=== PATIENT | male | born 1950 | race Caucasian/White ===

== ENCOUNTER 2020-11-03 00:02 | Emergency (ER) | payer BC, MEDICARE ==
[2020-11-03 00:47] LABS: Urine Blood 3+ (NEG); Urine Glucose 2+ (NEG); Urine Protein 2+ (NEG)
[2020-11-03 00:57] LABS: Absolute Lymphocytes (CBC) 1.7 K/uL (0.7-4.9); Basophils % 0.7 % (0-1.3); Hematocrit 42.3 % (39.6-49.0); Lymphocytes % 19.8 % (15.3-44.8); RBC Red Blood Cell Count 4.46 M/uL (4.33-5.43)
[2020-11-03] MEDS ORDERED: ONDANSETRON 4 MG/2 ML VIAL ONE (01:01)
[2020-11-03] MEDS ORDERED: MORPHINE 4 MG/ML SYR ONE ×2 (01:01→04:25)
[2020-11-03] MEDS ORDERED: NA CHLORIDE 0.9% 1,000 ML ONE (01:01)
[2020-11-03 01:12] LABS: Albumin 3.7 g/dL (3.4-5.0); Bilirubin Direct 0.1 mg/dL (0-0.2); Bilirubin Total 0.5 mg/dL (0.2-1.0); Potassium 4.1 mmol/L (3.5-5.1); Protein, Total 7.4 g/dL (6.4-8.2)
--- NOTE | 2020-11-03 03:35 | ER ---
Nurse's Notes [facility] Name: Johnathon Chapin Age: 70 yrs Sex: Male : 1950 Arrival Date: 11/03/2020 Time: 00:04 Bed 20 Private MD: Diagnosis: Ureterolithiasis;Diabetes with Hyperglycemia Presentation: 11/03 00:14 Chief complaint: Patient states: Left pelvic pain radiating to groin area, left flank lp1 pain, x1 episode of vomiting; Took 600mg of Advil this evening for pain; Patient reports hx of kidney stones. Coronavirus screen: Client denies travel out of the [place] in the last 14 days. At this time, the client does not indicate any symptoms associated with coronavirus-19. Ebola Screen: No symptoms or risks identified at this time. Risk Assessment: Do you want to hurt yourself or someone else? Patient reports no desire to harm self or others. Onset of symptoms was November 03, 2020. 00:14 Method Of Arrival: Ambulatory lp1 00:14 Acuity: JENNIFER 3 lp1 00:21 Initial Sepsis Screen: Does the patient meet any 2 criteria? No. Patient's initial lp1 sepsis screen is negative. Does the patient have a suspected source of infection? No. Patient's initial sepsis screen is negative. Historical: - Allergies: 00:20 Niaspan; lp1 - Home Meds: 00:20 Metformin Oral [Active]; Allopurinol Oral [Active]; rosuvastatin oral oral [Active]; lp1 Hydrochlorothiazide Oral [Active]; pioglitazone 15 mg oral tab [Active]; - PMHx: 00:20 Diabetes - IDDM; Hyperlipidemia; Gout; Hypertension; lp1 - Immunization history:: Adult Immunizations up to date. - Social history:: Smoking status: Patient denies any tobacco usage or history of. Screenin:20 Abuse screen: Denies threats or abuse. Denies injuries from another. Nutritional lp1 screening: No deficits noted. Tuberculosis screening: No symptoms or risk factors identified. Fall Risk None identified. Assessment: 00:45 General: Appears in no apparent distress. comfortable. Pain: Complains of pain in left mg2 lower quadrant Pain radiates to left flank Pain currently is 6 out of 10 on a pain scale. Quality of pain is described as aching, Pain began gradually, Is intermittent. Neuro: Level of Consciousness is awake, alert, obeys commands, Oriented to person, place, time, situation. Cardiovascular: Capillary refill < 3 seconds Patient's skin is warm and dry. Respiratory: Airway is patent Respiratory effort is even, unlabored, Respiratory pattern is regular, symmetrical. GI: Reports lower abdominal pain. : Reports pain in left in suprapubic area flank(s). EENT: No signs and/or symptoms were reported regarding the EENT system. Derm: Skin is intact, is healthy with good turgor, Skin is pink, warm \T\ dry. normal. Musculoskeletal: Circulation, motion, and sensation intact. Capillary refill < 3 seconds. 02:20 Reassessment: Patient appears in no apparent distress at this time. Patient and/or mg2 family updated on plan of care and expected duration. Pain level reassessed. Patient is alert, oriented x 3, equal unlabored respirations, skin warm/dry/pink. 03:30 Reassessment: Patient appears in no apparent distress at this time. Patient and/or jb4 family updated on plan of care and expected duration. Pain level reassessed. Patient is alert, oriented x 3, equal unlabored respirations, skin warm/dry/pink. 04:30 Reassessment: Patient appears in no apparent distress at this time. Patient and/or jb4 family updated on plan of care and expected duration. Pain level reassessed. Patient is alert, oriented x 3, equal unlabored respirations, skin warm/dry/pink. Patient states feeling better. Vital Signs: 00:21 BP 149 / 95; Pulse 100; Resp 18; Temp 98.5(TE); Pulse Ox 100% on R/A; Weight 95.25 kg lp1 (R); Height 6 ft. 2 in. (187.96 cm); Pain 5/10; 02:19 Pulse 80; Resp 18; Pulse Ox 95% on R/A; mg2 03:30 BP 153 / 86; Pulse 79; Resp 16; Pulse Ox 100% on R/A; jb4 00:21 Body Mass Index 26.96 (95.25 kg, 187.96 cm) lp1 ED Course: 00:04 Patient arrived in ED. am2 00:17 Triage completed. lp1 00:17 Arm band placed on. lp1 00:24 Yemi Stone MD is Attending Physician. mh7 00:31 Tamir Membreno, RN is Primary Nurse. mg2 00:53 Inserted saline lock: 20 gauge in right antecubital area, using aseptic technique. jb5 Blood collected. 01:12 Patient has correct armband on for positive identification. mg2 01:12 No provider procedures requiring assistance completed. mg2 01:23 CT Stone Protocol In Process Unspecified. EDMS 03:33 Jani Kilgore MD is Referral Physician. mh7 04:31 IV discontinued, intact, bleeding controlled, No redness/swelling at site. Pressure jb4 dressing applied. Administered Medications: 00:51 Drug: NS 0.9% 1000 ml Route: IV; Rate: 1000 ml; Site: right antecubital; mg2 02:20 Follow up: Response: No adverse reaction; IV Status: Completed infusion; IV Intake: mg2 1000ml 00:51 Drug: morphine 4 mg Route: IVP; Site: right antecubital; mg2 02:20 Follow up: Response: No adverse reaction mg2 00:51 Drug: Zofran (Ondansetron) 4 mg Route: IVP; Site: right antecubital; mg2 02:20 Follow up: Response: No adverse reaction mg2 04:11 Drug: morphine 4 mg Route: IVP; Site: right antecubital; jb4 04:29 Follow up: Response: No adverse reaction; Pain is decreased; RASS: Alert and Calm (0) jb4 Intake: 02:20 IV: 1000ml; Total: 1000ml. mg2 Outcome: 03:35 Discharge ordered by . mh7 04:31 Discharged to home via wheelchair, with family. jb4 04:31 Condition: stable 04:31 Discharge instructions given to patient, Instructed on discharge instructions, follow up and referral plans. medication usage, Demonstrated understanding of instructions, follow-up care, medications, Prescriptions given X 3. 04:32 Patient left the ED. jb4 Signatures: Dispatcher [employer] EDMO Bambi Negrete RN RN lp1 Ryan Centeno RN RN jb4 Candy Chamberlain jb5 Pao Zaldivar am2 Tamir Membreno, MOOSE RN mg2 Yemi Stone MD MD 7
--- NOTE | 2020-11-03 03:35 | EDPHYS ---
Physician Documentation [facility] Name: Johnathon Chapin Age: 70 yrs Sex: Male : 1950 Arrival Date: 11/03/2020 Time: 00:04 Bed 20 Private MD: ED Physician Yemi Stone HPI: 11/03 00:47 This 70 yrs old Male presents to ER via Ambulatory with complaints of Flank mh7 Pain - left, Low Back Pain. 00:47 The patient complains of pain in the left flank. The pain radiates to the left lower mh7 abdomen. Onset: The symptoms/episode began/occurred yesterday. Modifying factors: The symptoms are alleviated by nothing. the symptoms are aggravated by movement, palpation/percussion. Associated signs and symptoms: Pertinent positives: nausea, vomiting, Pertinent negatives: diarrhea, dizziness, dysuria, fever, urinary frequency, headache, hematuria, pain radiating to the lower extremities. Severity of pain: At its worst the pain was moderate yesterday, in the emergency department the pain is unchanged. Historical: - Allergies: 00:20 Niaspan; lp1 - Home Meds: 00:20 Metformin Oral [Active]; Allopurinol Oral [Active]; rosuvastatin oral oral [Active]; lp1 Hydrochlorothiazide Oral [Active]; pioglitazone 15 mg oral tab [Active]; - PMHx: 00:20 Diabetes - IDDM; Hyperlipidemia; Gout; Hypertension; lp1 - Immunization history:: Adult Immunizations up to date. - Social history:: Smoking status: Patient denies any tobacco usage or history of. ROS: 00:47 Constitutional: Negative for fever, chills, and weight loss, Eyes: Negative for injury, mh7 pain, redness, and discharge, Neck: Negative for injury, pain, and swelling, Cardiovascular: Negative for chest pain, palpitations, and edema, Respiratory: Negative for shortness of breath, cough, wheezing, and pleuritic chest pain. 00:47 ENT: Negative for injury, pain, and discharge, : Negative for injury, bleeding, discharge, and swelling, MS/Extremity: Negative for injury and deformity, Skin: Negative for injury, rash, and discoloration, Neuro: Negative for headache, weakness, numbness, tingling, and seizure, Psych: Negative for depression, anxiety, suicide ideation, homicidal ideation, and hallucinations, Allergy/Immunology: Negative for hives, rash, and allergies, Endocrine: Negative for neck swelling, polydipsia, polyuria, polyphagia, and marked weight changes, Hematologic/Lymphatic: Negative for swollen nodes, abnormal bleeding, and unusual bruising. Exam: 00:47 Constitutional: This is a well developed, well nourished patient who is awake, alert, mh7 and in no acute distress. Head/Face: Normocephalic, atraumatic. Eyes: Pupils equal round and reactive to light, extra-ocular motions intact. Lids and lashes normal. Conjunctiva and sclera are non-icteric and not injected. Cornea within normal limits. Periorbital areas with no swelling, redness, or edema. Neck: Trachea midline, no thyromegaly or masses palpated, and no cervical lymphadenopathy. Supple, full range of motion without nuchal rigidity, or vertebral point tenderness. No Meningismus. Chest/axilla: Normal chest wall appearance and motion. Nontender with no deformity. No lesions are appreciated. Cardiovascular: Regular rate and rhythm with a normal S1 and S2. No gallops, murmurs, or rubs. Normal PMI, no JVD. No pulse deficits. Respiratory: Lungs have equal breath sounds bilaterally, clear to auscultation and percussion. No rales, rhonchi or wheezes noted. No increased work of breathing, no retractions or nasal flaring. 00:47 Skin: Warm, dry with normal turgor. Normal color with no rashes, no lesions, and no evidence of cellulitis. MS/ Extremity: Pulses equal, no cyanosis. Neurovascular intact. Full, normal range of motion. Neuro: Awake and alert, GCS 15, oriented to person, place, time, and situation. Cranial nerves II-XII grossly intact. Motor strength 5/5 in all extremities. Sensory grossly intact. Cerebellar exam normal. Normal gait. Psych: Awake, alert, with orientation to person, place and time. Behavior, mood, and affect are within normal limits. 00:47 Abdomen/GI: Inspection: abdomen appears normal, Bowel sounds: normal, in all quadrants, Palpation: mild abdominal tenderness, in the left lower quadrant, Rectal exam: the exam is deferred, because of patient request, Indicators: McBurney's point is not tender, Johansen's sign is negative, Rovsing's sign is negative, Obturator sign is negative, Psoas sign is negative, Liver: no appreciated palpable abnormalities, Hernia: not appreciated. 00:47 Back: ROM is normal, normal spinal alignment noted, CVA tenderness, that is moderate, is noted on the left, vertebral tenderness, is not appreciated, muscle spasm, is not present, Straight leg raises: of both lower extremities does not illicit pain. Vital Signs: 00:21 BP 149 / 95; Pulse 100; Resp 18; Temp 98.5(TE); Pulse Ox 100% on R/A; Weight 95.25 kg lp1 (R); Height 6 ft. 2 in. (187.96 cm); Pain 5/10; 02:19 Pulse 80; Resp 18; Pulse Ox 95% on R/A; mg2 03:30 BP 153 / 86; Pulse 79; Resp 16; Pulse Ox 100% on R/A; jb4 00:21 Body Mass Index 26.96 (95.25 kg, 187.96 cm) lp1 MDM: 03:31 Differential diagnosis: nephrolithiasis, pyelonephritis, UTI, diverticulitis, ruptured mh7 AAA, dissecting AAA. Data reviewed: vital signs, nurses notes, lab test result(s), CBC, electrolytes, urinalysis, radiologic studies, CT scan. Data interpreted: Pulse oximetry: on room air is 95 %. Interpretation: normal. Counseling: I had a detailed discussion with the patient and/or guardian regarding: the historical points, exam findings, and any diagnostic results supporting the discharge/admit diagnosis, the presence of at least one elevated blood pressure reading (>120/80) during this emergency department visit, lab results, radiology results, to return to the emergency department if symptoms worsen or persist or if there are any questions or concerns that arise at home. Response to treatment: the patient's symptoms have resolved after treatment, the patient's blood pressure is in an acceptable range, mental status has returned to baseline, the patient no longer shows bradycardia, the patient is not short of breath, the patient is not tachycardic, the patient's pain is gone, the patient's temperature has normalized. 03:35 Patient medically screened. [facility] 06:26 Refusal of service: The patient/guardian displays adequate decision making capability [facility] and despite a detailed discussion of alternatives, benefits, risks, and consequences refuses: Admission to the hospital for further work-up and treatment, Transfer. 11/03 00:36 Order name: Urine Dipstick--Ancillary (enter results); Complete Time: 01:32 tt3 11/03 00:39 Order name: Basic Metabolic Panel [facility] 11/03 00:39 Order name: CBC with Diff; Complete Time: :32 [facility] 11/03 00:39 Order name: Hepatic Function; Complete Time: : [facility] 11/03 00:39 Order name: Lipase; Complete Time: :32 [facility] 11/03 00:39 Order name: Basic Metabolic Panel; Complete Time: 01:32 EDMS 11/03 00:36 Order name: Urine Dipstick-Ancillary (obtain specimen); Complete Time: 00:36 tt3 11/03 00:39 Order name: IV Saline Lock; Complete Time: 00:40 [facility] 11/03 00:39 Order name: Labs collected and sent; Complete Time: 00:40 [facility] 11/03 00:39 Order name: CT Stone Protocol [facility] Administered Medications: 00:51 Drug: NS 0.9% 1000 ml Route: IV; Rate: 1000 ml; Site: right antecubital; mg2 02:20 Follow up: Response: No adverse reaction; IV Status: Completed infusion; IV Intake: mg2 1000ml 00:51 Drug: morphine 4 mg Route: IVP; Site: right antecubital; mg2 02:20 Follow up: Response: No adverse reaction mg2 00:51 Drug: Zofran (Ondansetron) 4 mg Route: IVP; Site: right antecubital; mg2 02:20 Follow up: Response: No adverse reaction mg2 04:11 Drug: morphine 4 mg Route: IVP; Site: right antecubital; jb4 04:29 Follow up: Response: No adverse reaction; Pain is decreased; RASS: Alert and Calm (0) jb4 Disposition: 11/03/20 03:35 Discharged to Home. Impression: Ureterolithiasis, Diabetes with Hyperglycemia. - Condition is Stable. - Discharge Instructions: Kidney Stones, [id number], Hyperglycemia, [id number]. - Prescriptions for Zofran ODT 4 mg Oral tablet,disintegrating - place 1 tablet by TRANSLINGUAL route every 8 hours As needed; 6 tablet. Tylenol- Codeine #3 300-30 mg Oral Tablet - take 2 tablet by ORAL route every 6 hours As needed; 30 tablet. Flomax 0.4 mg Oral Capsule, Sust. Release 24 hr - take 1 capsule by ORAL route once daily 1/2 hour following the same meal each day; 10 capsule. - Medication Reconciliation Form, Thank You Letter, Antibiotic Education, Prescription Opioid Use form. - Follow up: Private Physician; When: 1 - 2 days; Reason: Worsening of condition, Recheck today's complaints, Continuance of care, Re-evaluation by your physician. Follow up: Jani Kilgore MD; When: 1 - 2 days; Reason: Worsening of condition, Recheck today's complaints. - Problem is an acute exacerbation. - Symptoms have improved. Signatures: Dispatcher [employer] EDMS Bambi Negrete RN RN lp1 Ryan Centeno RN RN jb4 Tamir Membreno RN RN mg2 Yemi Stone MD MD mh7 Jd Berry tt3 Corrections: (The following items were deleted from the chart) 04:32 03:35 11/03/2020 03:35 Discharged to Home. Impression: Ureterolithiasis; Diabetes with jb4 Hyperglycemia. Condition is Stable. Forms are Medication Reconciliation Form, Thank You Letter, Antibiotic Education, Prescription Opioid Use. Follow up: Private Physician; When: 1 - 2 days; Reason: Worsening of condition, Recheck today's complaints, Continuance of care, Re-evaluation by your physician. Follow up: Jani Kilgore; When: 1 - 2 days; Reason: Worsening of condition, Recheck today's complaints. Problem is an acute exacerbation. Symptoms have improved. 7
[2020-11-03 04:36] VITALS: TEMP 98.5
[2020-11-03 04:39] VITALS: BP 153/86; O2SAT 100
--- NOTE | 2020-11-03 20:31 | RAD REPORT ---
EXAM DESCRIPTION: CT - Stone Protocol - 11/03/2020 7:12 am CLINICAL HISTORY: FLANK PAIN COMPARISON: None. TECHNIQUE: CT ABDOMEN PELVIS WITHOUT IV CONTRAST on 11/03/2020 12:39 AM [employer] This exam was performed according to our departmental dose-optimization program, which includes autom ated exposure control, adjustment of the mA and/or kV according to patient size and/or use of iterati ve reconstruction technique. FINDINGS: The heart is enlarged. Abdomen: The liver is normal in appearance. There is no biliary dilatation. Gallbladder is normally d istended. The pancreas and spleen are normal in appearance. Adrenal glands are unremarkable. There is a 4 mm mid pole right renal calculus without hydronephrosis. There are at least four left renal calc beth measuring up to 4 mm. There is moderate left hydronephrosis secondary to a 1.1 cm proximal left u reteral calculus. Abdominal aorta is densely calcified without aneurysm. There is no free air. There is no retroperiton eal adenopathy. Pelvis: There is mild distal colonic diverticulosis. Urinary bladder is unremarkable. There is no bam e fluid. Appendix is normal. Skeleton: There are no acute osseous findings. No suspicious bony lesions. IMPRESSION: Bilateral nephrolithiasis with a mildly obstructing 11 mm proximal left ureteral calculu s. Electronically signed by: Theodore Lou MD 11/03/2020 1:46 AM [employer] Due to temporary technical issues with the PACS/Fluency reporting system, reports are being signed by the in house radiologists without review as a courtesy to insure prompt reporting. The interpreting radiologist is fully responsible for the content of the report.
== END 2020-11-03 04:32 | disposition home or self-care (01) ==
LOC: ER 00:02
DX: N20.1 Calculus of ureter (principal); E11.65 Type 2 diabetes mellitus with hyperglycemia; I10 Essential (primary) hypertension; E78.5 Hyperlipidemia, unspecified; Z88.8 Allergy status to other drugs, medicaments and biological substances
CPT/HCPCS: 96361; 85025; 80048; 36415; 80076; 81003; 83690; 76377; 74176; 96375; 96374; 99284; J7030; J2405

== ENCOUNTER 2020-11-08 07:59 | Day surgery (SDC) | payer MEDICARE ==
--- OUTSIDE RECORDS SUMMARY | 2020-11-08 08:07 | XMS REPORT | Summary of Care ---
:1950 Author Organization [facility] Internal Medicine [place] Address [address] [place] [address]- Encounter HQ Christian_pao(FIN) [phone] Date(s): 08/20/20 - 08/20/20 [facility] Internal Medicine [place] [address] [place] [address] [phone] Discharge Disposition: Home or Self Care Attending Physician: Aniyah Morataya MD Vital Signs Most recent to oldest [Reference Range]: 1 2 Height 187.96 cm (08/20/20 1:58 PM) Temperature Oral [96.4-99.1 DegF] 97.6 DegF (08/20/20 1:58 PM) Blood Pressure [90-140/60-90 mmHg] 74/57 mmHg *LOW* (08/20/20 1:58 PM) Peripheral Pulse Rate [60-100 bpm] 108 bpm 125 b pm *HI* *HI* (08/20/20 2:37 PM) (08/20/20 1:58 PM) Weight 92.273 kg (08/20/20 1:58 PM) Body Mass Index 26.12 m2 (08/20/20 1:58 PM) Problem List Condition Effective Dates Status Health Status Informant Benign hypertension(Confirmed)1 Active Chronic kidney disease stage 07/04/13 Active 3(Confirmed)2 Gout(Confirmed)3 Active Mixed hyperlipidemia(Confirmed) Active Stress fracture of metatarsal 05/10/15 Resolved bone4 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 Allergies, Adverse Reactions, Alerts Substance Reaction Severity Status niacin1 Active 1Data migrated from [employer] on 02/08/15. Originally documented as NIASPAN. Dizziness & felt a hot sensation Medications No Known Medications Results No data available for this section Immunizations Given and Recorded Vaccine Date Status Refusal Reason pneumococcal 23-valent vaccine1 08/04/19 Given Hx influenza vaccine-unspecified 07/12/19 Recorded pneumococcal 13-valent vaccine2 08/04/18 Given influenza virus vaccine, live, trivalent 06/12/18 Recorde d influenza virus vaccine, inactivated3 07/24/15 Given influenza virus vaccine, inactivated4 07/04/13 Given 1Result Comment: Tolerated injection and no reaction after 15 [id number] Comment: Patient tolerated injection. No reaction noted.3Result Comment: [facility] [id number] FLUZONE QUADRIVALENT [id number] Comment: fluzone preservative free (>3 yrs.) [[id number]]. Migrated from OBS ; Data migratedfrom [employer] on 11/13/2015. Procedures Procedure Date Related Diagnosis Body Site Status Diabetic retinal eye exam1 10/2019 C ompleted Colonoscopy2 06/12/12 Completed Ureteroscopy Completed 1Dr. [place] Normal [id number]- unsure when to repeat Social History Social History Type Response Smoking Status Never smoker; Exposure to To bacco Smoke None; Cigarette Smoking Last 365 Days No; Reg Smoking Cessation Counseling No entered on: 08/20/20 Assessment and Plan No data available for this section
--- OUTSIDE RECORDS SUMMARY | 2020-11-08 08:07 | XMS REPORT | Summary of Care ---
:1950 Author Organization [facility] Internal Medicine [place] [facility] Address [address] [place] [address]- Encounter HQ Obintr_pao(FIN) [id number] Date(s): 09/12/20 - 09/13/20 [facility] Internal Medicine [place] [address] [place] [address] [phone] Vital Signs No data available for this section Problem List Condition Effective Dates Status Health [...] & felt a hot sensation Medications No data available for this section Results No data available for this section Immunizations Given and Recorded Vaccine Date Status Refusal Reason pneumococcal 23-valent vaccine1 08/04/19 Given Hx influenza vaccine-unspecified 07/12/19 Recorded pneumococcal 13-valent vaccine2 08/04/18 Given influenza virus vaccine, live, trivalent 06/12/18 Recorde d influenza virus vaccine, inactivated3 07/24/15 Given influenza virus vaccine, inactivated4 07/04/13 Given 1Result Comment: Tolerated injection and no reaction after 15 [id number] Comment: Patient tolerated injection. No reaction noted.3Result Comment: [facility] [id number] FLUZONE QUADRIVALENT [id number] Comment: fluzone preservative free (>3 yrs.) [[id number]]. Migrated from OBS ; [facility] 11/13/2015. Procedures Procedure Date Related Diagnosis Body Site Status Diabetic retinal eye exam1 10/2019 C ompleted Colonoscopy2 06/12/12 Completed Ureteroscopy Completed 1Dr. [place] Normal [id number] unsure when to repeat Social History Social History Type Response Smoking Status Never smoker; Exposure to To bacco Smoke None; Cigarette Smoking Last 365 Days No; Reg Smoking Cessation Counseling No entered on: 08/20/20 Assessment and Plan No data available for this section
--- OUTSIDE RECORDS SUMMARY | 2020-11-08 08:07 | XMS REPORT | Summary of Care ---
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, Weight Start Date: 09/18/20 Status: OrderedmetFORMIN 850 mg oral tablet = 1 tab, PO, BID, # 180 tab, 3 Refill(s), Pharmacy: [facility], 187.96, cm, 08/20/20 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, Height, 92.273, kg, 08/20/20 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, Weight Start Date: 09/18/20 Status: OrderedOneTouch Ultra Blue Blood Glucose Test Strip 1 ea, MISC, TID, # 300 ea, Insulin dependent, Does not use insulin pump, Last DM eval date 08/20/20,3 Refill(s), Pharmacy: [facility], 187.96, cm, 08/20/20 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, Height, 92.273, kg, 08/20/20 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, Weight Start Date: 09/18/20 Status: Orderedperindopril 8 mg oral tablet = 1 tab, PO, Daily, # 90 tab, 3 Refill(s), Pharmacy: [facility], 187.96, cm, 08/20/20 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, Height, 92.273, kg, 08/20/20 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 No reaction noted.3Result Comment: [facility] [phone] FLUZONE QUADRIVALENT [id number] Comment: fluzone preservative free (>3 yrs.) [[id number]]. Migrated from OBS ; [facility]. Procedures Procedure Date Related Diagnosis Body Site Status Diabetic retinal eye exam1 10/2019 C ompleted Colonoscopy2 06/12/12 Completed Ureteroscopy Completed 1Dr. Helio Normal [id number]- unsure when to repeat Social History Social History Type Response Smoking Status Never smoker; Exposure to To bacco Smoke None; Cigarette Smoking Last 365 Days No; Reg Smoking Cessation Counseling No entered on: 08/20/20 Assessment and Plan No data available for this section
--- OUTSIDE RECORDS SUMMARY | 2020-11-08 08:07 | XMS REPORT | Summary of Care ---
:1950 Author Organization [facility] Internal Medicine [place] junior Address [address] [place] [address]- Encounter HQ Christian_pao(FIN) [phone] Date(s): 10/03/20 - 10/03/20 [facility] Internal Medicine [place] [address] [place] [address]- [phone] Discharge Disposition: Home or Self Care Attending Physician: Aniyah Morataya MD Vital Signs Most recent to oldest [Reference Range]: 1 Height 187.96 cm (10/03/20 11:21 AM) Temperature Oral [96.4-99.1 DegF] 97.8 DegF (10/03/20 11:21 AM) Blood Pressure [90-140/60-90 mmHg] 116/80 mmHg (10/03/20 11:21 AM) Peripheral Pulse Rate [60-100 bpm] 86 bpm (10/03/20 11:21 AM) Problem List Condition Effective Dates Status Health [...] Severity Status niacin1 Active 1Data migrated from [facility] on 02/08/15. Originally documented as NIASPAN. Dizziness & felt a hot sensation Medications Soliqua 100/33 subcutaneous solution 40 units, SUB-Q, Daily, Inject once within the hour prior to the first meal of the day; one month supply, # 1 ea, 5 Refill(s) Start Date: 10/03/20 Status: Ordered Results No data available for this section Immunizations Given and Recorded Vaccine Date Status Refusal Reason influenza virus vaccine, inactivated1 06/25/20 Recorded influenza virus vaccine, inactivated2 07/24/15 Given influenza virus vaccine, inactivated3 07/04/13 Given pneumococcal 23-valent vaccine4 08/04/19 Given Hx influenza vaccine-unspecified 07/12/19 Recorded pneumococcal 13-valent vaccine5 08/04/18 Given influenza virus vaccine, live, trivalent 06/12/18 Recorde d 1Result Comment: [10/03/2020] [facility] [id number] Comment: [facility] [phone] FLUZONE QUADRIVALENT [id number] Comment: fluzone preservative free (>3 yrs.) [[id number]]. Migrated from OBS ; Data migratedfrom [facility] on 11/13/2015.4Result Comment: Tolerated injection and no reaction after 15 mins5 Result Comment: Patient tolerated injection. No reaction noted. Procedures Procedure Date Related Diagnosis Body Site Status Diabetic retinal eye exam1 10/2019 C ompleted Colonoscopy2 06/12/12 Completed Ureteroscopy Completed 1Dr. [place] Normal [id number]- unsure when to repeat Social History Social History Type Response Smoking Status Never smoker; Exposure to To bacco Smoke None; Cigarette Smoking Last 365 Days No; Reg Smoking Cessation Counseling No entered on: 10/03/20 Assessment and Plan No data available for this section
--- OUTSIDE RECORDS SUMMARY | 2020-11-08 08:07 | XMS REPORT | Continuity of Care Document ---
:1950 Author Organization [employer] Care Team Providers Name Role Phone [employer] [facility] Unavailable Un available Problems Problem Status Onset Classification Date Comments Sourc e Date Reported M25.5 - PAIN IN JOINT Active OPID 015 [place] Stress fracture of Resolved Problem 10/06/2020 Data metatarsal bone 015 migrated Medi reina (disorder) from [facility] OPID on 06/02/15. [place] Foot pain (finding) Active Problem 06/17/2015 Data OPID 015 migrated Sugar from [employer] [facility] on 06/02/15. 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 Chronic kidney disease Active Problem 10/06/2020 Data stage 3 (disorder) 013 migrated M edical from [facility], [facility] OPID on 03/10/15. 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 [place] Benign hypertension Active Problem 10/06/2020 Data MH (disorder) migrated Medical from [facility] OPID on 03/10/15. [place] Gout (disorder) Active Problem 10/06/2020 Data MH migrated Medical from [facility] OPID on 03/10/15. [place] Mixed hyperlipidemia Active Problem 10/06/2020 MH (disorder) Medical Group Type II diabetes Active Problem 10/06/2020 MH mellitus uncontrolled Medical (finding) Group Diabetes mellitus type Active Problem 10/02/2017 Data MH 2 (disorder) migrated Medical from [facility], [facility] OPID on 5/30/15. 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 Hypercholesterolemia Active Problem 08/24/2015 Data OPID (disorder) migrated Sugar from [facility] on 03/10/15. 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, Height, 92.273, kg, 08/20/20 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, Weight allopurinol 300 mg = 1 tab, PO, Active oral tablet Daily, # 90 2019 Medical tab, 3 Group Refill(s), Pharmacy: [facility], 187.96, cm, 08/20/20 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, Height, 92.273, kg, 08/20/20 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, Weight Metformin = 1 tab, PO, Active hydrochloride 850 MG BID, # 180 2020 Medical Oral Tablet tab, 3 Group Refill(s), Pharmacy: [facility], 187.96, cm, 08/20/20 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, Height, 92.273, kg, 08/20/20 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, Weight perindopril 8 mg oral = 1 tab, PO, Active 09/18 tablet Daily, # 90 2019 Medical tab, 3 Group Refill(s), Pharmacy: [facility], 187.96, cm, 08/20/20 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, Height, 92.273, kg, 08/20/20 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, Weight 0.25 MG, 0.5 MG Dose 0.5 mg, Active 1.5 ML semaglutide SUB-Q, Q7D, 2019 M edical 1.34 MG/ML Pen use after Group Injector [Ozempic] starter kit, # 2 mL, 5 Refill(s), Pharmacy: [id number] Azithromycin 5 Day See Active Dose Pack 250 mg oral Instructions, 2019 Medical tablet Take 2 Group tablets by mouth the first day then 1 tablet by mouth days 2-5., X 5 day, # 6 tab, 0 Refill(s) benzonatate 100 MG 100 mg = 1 Active Oral Capsule cap, PO, TID, 2019 Medic al [Tessalon Perles] PRN Group Cough/Congest ion, X 10 day, # 30 cap, 0 Refill(s) moxifloxacin 5 MG/ML 1 drp, Each Active Ophthalmic Solution Affected Eye, 2019 Medical [Vigamox] TID, X 7 day, Group # 3 mL, 0 Refill(s) BD Ultra-Fine See Active original Insulin Pen Instructions, 2019 Medical Turpin 29G MISC Daily, # Group 12.7mm=1/2 inch 100 ea, 3 Refill(s), Pharmacy: [facility] Hydrochlorothiazide See Active 25 MG Oral Tablet Instructions, 2019 Medical TAKE 1 TABLET Group DAILY, # 90 tab, 1 Refill(s), Pharmacy: [facility] Fenofibrate 160 MG See Active Oral Tablet Instructions, 2019 Medica l TAKE 1 TABLET Group DAILY, # 90 tab, 1 Refill(s), Pharmacy: [facility] rosuvastatin 40 mg See Active oral tablet Instructions, 2019 Medica l TAKE 1 TABLET Group DAILY, # 90 tab, 3 Refill(s), Pharmacy: [facility] perindopril 8 mg oral See Active tablet Instructions, 2019 Medical TAKE 1 TABLET Group DAILY, # 90 tab, 1 Refill(s), Pharmacy: [facility] allopurinol 300 mg See Active oral tablet Instructions, 2019 Medica l TAKE 1 TABLET Group DAILY, # 90 tab, 1 Refill(s), Pharmacy: [facility] Metformin See Active hydrochloride 850 MG Instructions, 2019 Medical Oral Tablet TAKE 1 TABLET Group TWICE A DAY, # 180 tab, 1 Refill(s), Pharmacy: [facility] Colchicine 0.6 MG 0.6 mg = 1 Active Oral Tablet tab, PO, BID, 2018 Medica l PRN Group gout/joint pain, # 60 tab, 0 Refill(s), Pharmacy: [facility] [id number] pioglitazone 15 MG 15 mg = 1 Active 01/04/ Oral Tablet [Actos] tab, PO, 2018 Med ical Daily, # 30 Group tab, 0 Refill(s), Pharmacy: [facility] [id number] pioglitazone 15 MG 15 mg = 1 Inactive 01/04/ Oral Tablet [Actos] tab, PO, 2018 Med ical Daily, # 90 Group tab, 1 Refill(s), Pharmacy: [facility] Allergies, Adverse Reactions, Alerts Substance Category Reaction Severity Reaction Status Date Comments S ource type Reported niacin<sup> Assertion Drug Active Data 1</sup> allergy migrated Medical from [facility] on 02/08/15. Originally documented as NIASPAN. Dizziness & felt a hot sensation Immunizations Immunization Date Site Status Last Updated Comments Sour ce Given influenza virus completed Susan Result Comment : Medical vaccine, 0 [10/03/2020] Group inactivated<sup> [facility] 1</sup> pharmacy pneumococcal Left completed Gorka Result Comment: [facility] 23-valent 9 Deltoid Tolerated Group vaccine<sup>1</s injection and up> no reaction after 15 mins pneumococcal Left completed Gorka Result Comment: [facility] 23-valent 9 Deltoid Tolerated Group vaccine<sup>4</s injection and up> no reaction after 15 mins Hx influenza completed [facility] Medi reina vaccine-unspecif 9 Cornelius up ied pneumococcal Left completed Gorka Result Comment: [facility] 13-valent 8 Deltoid Patient Group vaccine<sup>1</s tolerated up> injection. No reaction noted. pneumococcal Left completed Gorka Result Comment: [facility] 13-valent 8 Deltoid Patient Group vaccine<sup>2</s tolerated up> injection. No reaction noted. pneumococcal Left completed Gorka Result Comment: [facility] 13-valent 8 Deltoid Patient Group vaccine<sup>5</s tolerated up> injection. No reaction noted. influenza virus completed [facility] edical vaccine, live, 8 Group trivalent influenza virus Left completed Kenrick Result Comment : Medical vaccine, 5 Deltoid NDC [id number] Grou p, inactivated<sup> FLUZONE OPI D Sugar 1</sup> QUADRIVALENT [place] influenza virus Left completed Kenrick Result Comment : Medical vaccine, 5 Deltoid NDC [id number] Grou p inactivated<sup> FLUZONE 2</sup> QUADRIVALENT influenza virus Left completed Kenrick Result Comment : Medical vaccine, 5 Deltoid NDC [id number] Grou p inactivated<sup> FLUZONE 3</sup> QUADRIVALENT influenza virus completed GE Result Comment : Medical vaccine, 3 fluzone Group inactivated<sup> preservative 2</sup> free (>3 yrs.) [[id number]]. Migrated from OBS ; Data migrated from [employer] on 11/13/2015. influenza virus completed GE Result Comment : Medical vaccine, 3 fluzone Group inactivated<sup> preservative 3</sup> free (>3 yrs.) [[id number]]. Migrated from OBS ; Data migrated from [employer] on 11/13/2015. influenza virus completed GE Result Comment : Medical vaccine, 3 fluzone Group inactivated<sup> preservative 4</sup> free (>3 yrs.) [[id number]]. Migrated from OBS ; Data migrated from [employer] on 11/13/2015. Results Order Name Results Value Reference Date Interpretation Comments Patito rce Range ELECTROLYTE Chloride Lvl 100 98 - 110 11/22 Medical Group ELECTROLYTE Potassium Lvl 4.6 3.5 - 5.3 11/22 S Medical Group ELECTROLYTE CO2 30 20 - 32 11/22 S /2018 Medical Group ELECTROLYTE A/G Ratio 1.8 1.0 - 2.5 11/22 S Medical Group ELECTROLYTE Total Protein 6.5 6.1 - 8.1 11/22 S Medical Group ELECTROLYTE Calcium Lvl 9.4 8.6 - 10.3 11/22 S Medical Group ELECTROLYTE Albumin Lvl 4.2 3.6 - 5.1 11/22 S Medical Group ELECTROLYTE Alk Phos 33 40 - 115 11/22 S Medical Group ELECTROLYTE ALANINE 16 9 - 46 11/22 S AMINO Medical ASE Group ELECTROLYTE ASPARTATE 20 10 - 35 11/22 S Medical Group ELECTROLYTE Globulin 2.3 1.9 - 3.7 11/22 S Medical Group ELECTROLYTE Bili Total 0.5 0.2 - 1.2 11/22 S Medical Group ELECTROLYTE Creatinine 1.62 0.70 - 11/22 Result S Lvl 1.25 Comment: For Medical patients >49 Group years of age, the reference limit
for Creatinine is approximately 13% higher for people
id entified as -Ameri can. ELECTROLYTE BUN 23 7 - 25 11/22 S Medical Group ELECTROLYTE eGFR NON-AFR. 43 > OR = 60 11/22 S [place] mL/min/1. Medical 3m2 Group ELECTROLYTE Glucose Lvl 140 65 - 99 11/22 Result S Comment: Medical
Group Fasting reference interval

For someone without known diabetes, a glucose
v alue >125 mg/dL indicates that they may have
diab etes and this should be confirmed with a
follow- up test.

Lab test performed by:
[email or web address]
[address]
[place] [address]
No Goodman ELECTROLYTE B/C Ratio 14 6 - 22 11/22 S Medical Group ELECTROLYTE eGFR 50 > OR = 60 11/22 MH S [place] mL/min/1.7 /2019 Medical 3m2 Group ELECTROLYTE Sodium Lvl 138 135 - 146 11/22 MH S /2019 Medical Group HEMATOLOGY Hgb 13.4 13.2 - 11/22 MH 17.1 /2018 Medical Group HEMATOLOGY RBC X 10x6 4.23 4.20 - 02 MH 5.80 /2018 Medical Group HEMATOLOGY Hct 40.3 38.5 - 11/22 MH 50.0 /2019 Medical Group HEMATOLOGY WBC X 10x3 6.5 3.8 - 10.8 11/22 Result Comment: Medical
Lab Group test performed by:
[email or web address]
[address]
[place] [address]
No Goodman HEMATOLOGY MCH 31.7 27.0 - 11/22 MH 33.0 /2018 Medical Group HEMATOLOGY MCHC 33.3 32.0 - 11/22 MH 36.0 Medical Group HEMATOLOGY MCV 95.3 80.0 - 11/22 100.0 Medical Group HEMATOLOGY RDW 12.5 11.0 - 11/22 MH 15.0 Medical Group HEMATOLOGY MPV 11.6 7.5 - 12.5 11/22 /2018 Medical Group HEMATOLOGY Platelet 218 140 - 400 11/22 Medical Group LIPIDS Chol 123 <200 mg/dL 11/22 Result Comment: Medical
Lab Group test performed by:
[email or web address]
[address]
[place] [address]
No Goodman LIPIDS CHD Risk 4.4 <5.0 11/22 (CALC) Medical Group LIPIDS Non HDL Chol 95 <130 mg/dL 11/22 Result Comment: For Medical patients with Group diabetes plus 1 major ASCVD risk
factor, treating to a non-HDL-C goal of <100 mg/dL
(LDL-C of <70 mg/dL) is considered a therapeutic
option. LIPIDS HDL 28 >40 mg/dL 11/22 /2018 Medical Group LIPIDS LDL 73 11/22 Result (Calculated) Comment: Medical Reference Group range: <100

Desirabl e range <100 mg/dL for primary prevention;
<70 mg/dL for patients with CHD or diabetic patients
with > or = 2 CHD risk factors.

LDL-C is now calculated using the Paris lynch
calculat ion, which is a validated novel method providing
better accuracy than the Friedewald equation in the
estimati on of LDL-C.
Julio SANTIAGO et al. KIMBERLEY. 2013;310(19): 3163-2425
(http:// [employer]AllTrails/faq/FAQ1 64) LIPIDS Trig 134 <150 mg/dL 11/22 /2018 Medical Group SPECIAL Hgb A1C 7.1 <5.7 % 11/22 Result CHEMISTRY Comment: For Medical someone Group without known diabetes, a hemoglobin A1c
value of 6.5% or greater indicates that they may have
diabetes and this should be confirmed with a follow-up
test.

For someone with known diabetes, a value <7% indicates
that their diabetes is well controlled and a value
greater than or equal to 7% indicates suboptimal
control. A1c targets should be individualize d based on
duration of diabetes, age, comorbid conditions, and
other consideration s.

Currentl y, no consensus exists regarding use of
hemogl obin A1c for diagnosis of diabetes for children.<br/ >
FASTING: YES

FASTING: YES

Lab test performed by:
[email or web address]
[address] [place] [address]
[place] [address]
No Goodman SPECIAL PSA 0.6 < OR = 4.0 11/22 Result CHEMISTRY ng/mL Comment: The Medical total PSA Group value from this assay system is
standard ized against the WHO standard. The test
result will be approximately 20% lower when compared
to the equimolar-sta ndardized total PSA (Jason
Marc) . Comparison of serial PSA results should be
interpre edie with this fact in mind.

This test was performed using the Siemens
chemilum inescent method. Values obtained from
differen t assay methods cannot be used
inte rchangeably. PSA levels, regardless of
value, should not be interpreted as absolute
evidence of the presence or absence of disease.

Lab test performed by:
[email or web address]
[address] [place] [address]
[place] [address]
No Goodman SPECIAL Hgb 13.4 13.2 - 11/22 CHEMISTRY 17.1 Medical Group SPECIAL RBC X 10x6 4.23 4.20 - 02 CHEMISTRY 5.80 /2018 Medical Group SPECIAL Hct 40.3 38.5 - 11/22 CHEMISTRY 50.0 /2019 Medical Group SPECIAL WBC X 10x3 6.5 3.8 - 10.8 11/22 Result CHEMISTRY Comment: Medical
Lab Group test performed by:
[email or web address]
[address] [place] [address]
[place] [address]
No Goodman SPECIAL Chloride Lvl 100 98 - 110 11/22 CHEMISTRY /2018 Medical Group SPECIAL Potassium Lvl 4.6 3.5 - 5.3 11/22 CHEMISTRY /2019 Medical Group SPECIAL CO2 30 20 - 32 11/22 CHEMISTRY /2019 Medical Group SPECIAL A/G Ratio 1.8 1.0 - 2.5 11/22 CHEMISTRY /2018 Medical Group SPECIAL Total Protein 6.5 6.1 - 8.1 11/22 CHEMISTRY /2018 Medical Group SPECIAL Calcium Lvl 9.4 8.6 - 10.3 11/22 CHEMISTRY Medical Group SPECIAL Albumin Lvl 4.2 3.6 - 5.1 11/22 CHEMISTRY /2018 Medical Group SPECIAL Alk Phos 33 40 - 115 11/22 CHEMISTRY /2019 Medical Group SPECIAL ALANINE 16 9 - 46 11/22 CHEMISTRY AMINOTRANSFER /2018 Medical ASE Group SPECIAL ASPARTATE 20 10 - 35 11/22 CHEMISTRY TRANSAMINASE /2018 Medical Group SPECIAL Globulin 2.3 1.9 - 3.7 11/22 CHEMISTRY /2018 Medical Group SPECIAL Bili Total 0.5 0.2 - 1.2 11/22 CHEMISTRY /2018 Medical Group SPECIAL U Alb 1.0 See Note: 11/22 Result CHEMISTRY mg/dL Comment: Medical Reference Group Range:
<b r/>Reference Range
Not established SPECIAL U Alb/Crea 7 <30 mcg/mg 11/22 Result CHEMISTRY creat Comment: Medical
The ADA Group defines abnormalities in albumin
e xcretion as follows:<b r/>
Category Result (mcg/mg creatinine)<b r/>
Normal <30
Micro albuminuria 30-299
Clinical albuminuria > OR = 300

The ADA recommends that at least two of three
spe cimens collected within a 3-6 month period be
abnorm al before considering a patient to be
within a diagnostic category. SPECIAL U Creat mg/dL 136 20 - 320 11/22 Result CHEMISTRY /2018 Comment: Medical
Lab Group test performed by:
[email or web address]
[address] [place] [address]
[place] [address]
No Goodman SPECIAL MCH 31.7 27.0 - 02 CHEMISTRY 33.0 Medical Group SPECIAL MCHC 33.3 32.0 - 11/22 CHEMISTRY 36.0 Medical Group SPECIAL MCV 95.3 80.0 - 02 CHEMISTRY 100.0 /2018 Medical Group SPECIAL RDW 12.5 11.0 - 02 CHEMISTRY 15.0 Medical Group SPECIAL MPV 11.6 7.5 - 12.5 11/22 CHEMISTRY /2018 Medical Group SPECIAL Platelet 218 140 - 400 11/22 CHEMISTRY Medical Group SPECIAL Creatinine 1.62 0.70 - 11/22 Result CHEMISTRY Lvl 1. Comment: For Medical patients >49 Group years of age, the reference limit
for Creatinine is approximately 13% higher for people
id entified as -Ameri can. SPECIAL BUN 23 7 - 25 11/22 CHEMISTRY [facility] SPECIAL eGFR NON-AFR. 43 > OR = 60 11/22 CHEMISTRY [place] mL/min/1. Medical 3m2 Group SPECIAL Glucose Lvl 140 65 - 99 11/22 Result CHEMISTRY Comment: Medical
Group Fasting reference interval

For someone without known diabetes, a glucose
v alue >125 mg/dL indicates that they may have
diab etes and this should be confirmed with a
follow- up test.

Lab test performed by:
[email or web address]
[address] [place] [address]
[place] [address]
No Goodman SPECIAL B/C Ratio 14 6 - 22 11/22 CHEMISTRY /2018 [facility] SPECIAL eGFR 50 > OR = 60 11/22 CHEMISTRY [place] mL/min/. [address] Group SPECIAL Sodium Lvl 138 135 - 146 11/22 CHEMISTRY [facility] URINE CHEM U Alb 1.0 See Note: 11/22 Result mg/dL Comment: Medical Reference Group Range:
<b r/>Reference Range
Not established URINE CHEM U Alb/Crea 7 <30 mcg/mg 11/22 Result creat Comment: Medical
The ADA Group defines abnormalities in albumin
e xcretion as follows:<b r/>
Category Result (mcg/mg creatinine)<b r/>
Normal <30
Micro albuminuria 30-299
Clinical albuminuria > OR = 300

The ADA recommends that at least two of three
spe cimens collected within a 3-6 month period be
abnorm al before considering a patient to be
within a diagnostic category. URINE CHEM U Creat mg/dL 136 20 - 320 11/22 Result Comment: Medical
Lab Group test performed by:
[facility]
[address]
[place] [address]
No Goodman CHEM PANEL Uric Acid 3.1 4.0 - 8.0 03/26 Result Comment: Medical Therapeutic Group target for gout patients: <6.0 mg/dL

Lab test performed by:
[facility]
[address]
[place] [address]
No Goodman CHEM PANEL Alk Phos 30 40 - 115 03/26 [facility] Group CHEM PANEL Bili Total 0.5 0.2 - 1.2 03/26 Medical Group CHEM PANEL ALANINE 15 9 - 46 03/26 AMINOTRANSFER [facility] Group CHEM PANEL ASPARTATE 20 10 - 35 03/26 TRANSAMINASE /2017 Medical Group CHEM PANEL A/G Ratio 1.9 1.0 - 2.5 03/26 Medical Group CHEM PANEL eGFR NON-AFR. 61 > OR = 60 03/26 [place] mL/min/1.7 /2018 [place] [address] Group CHEM PANEL Creatinine 1.23 0.70 - 03/26 Result Lvl 1.25 Comment: For Medical patients >49 Group years of age, the reference limit
for Creatinine is approximately 13% higher for people
id entified as -Ameri can. CHEM PANEL Albumin Lvl 4.1 3.6 - 5.1 03/26 Medical Group CHEM PANEL Total Protein 6.3 6.1 - 8.1 03/26 Medical Group CHEM PANEL Calcium Lvl 9.5 8.6 - 10.3 03/26 Medical Group CHEM PANEL CO2 27 20 - 31 03/26 Medical Group CHEM PANEL Globulin 2.2 1.9 - 3.7 03/26 Medical Group CHEM PANEL Sodium Lvl 139 135 - 146 03/26 Medical Group CHEM PANEL B/C Ratio NOT 6 - 22 03/26 Medical Group CHEM PANEL eGFR 70 > OR = 60 03/26 [place] mL/min/1. [address] Group CHEM PANEL Potassium Lvl 4.2 3.5 - 5.3 03/26 [facility] CHEM PANEL BUN 17 7 - 25 03/26 Medical [facility] CHEM PANEL Glucose Lvl 120 65 - 99 03/26 Result Comment: Medical
Group Fasting reference interval

For someone without known diabetes, a glucose value
bet ween 100 and 125 mg/dL is consistent with
p rediabetes and should be confirmed with a
follow- up test.

Lab test performed by:
[email or web address]
[address] [place] [address]
[facility] [place] [address]
No Goodman CHEM PANEL Chloride Lvl 104 98 - 110 03/26 Medical Group SPECIAL Hgb A1C 7.6 <5.7 % 03/26 Result CHEMISTRY /2018 Comment: For Medical someone Group without known diabetes, a hemoglobin A1c
value of 6.5% or greater indicates that they may have
diabetes and this should be confirmed with a follow-up
test.

For someone with known diabetes, a value <7% indicates
that their diabetes is well controlled and a value
greater than or equal to 7% indicates suboptimal
control. A1c targets should be individualize d based on
duration of diabetes, age, comorbid conditions, and
other consideration s.

Currentl y, no consensus exists regarding use of
hemogl obin A1c for diagnosis of diabetes for children.<br/ >
FASTING: YES

FASTING: YES

Lab test performed by:
[email or web address]
[address] [place] [address]
[place] [address]
No Goodman Pathology Reports No Data Provided for This Section Diagnostic Reports Report Value Date Source Foot series DX Examination: Foot series 08/21/2015 [employer] Provided History: pain DIAGNOSIS: Progressive heal ing of an extra-articular fracture at the base of the second metatarsal DISCUSSION: Three views [facility] foot are compared to all prior studies. There is progressive ossification and increasing density within an extra-articular nondisplaced fracture at the base of the second m etatarsal. No change in alig nment or position. The fracture site is still evident although increasing in density indicating progressive healing. There are no other interval changes. Foot series DX Examination: Foot series 07/24/2015 [employer] Provided History: right foot fx , subacute DIAGNOSIS: Increasing ossif ication of a nondisplaced stress fracture at the base of the second metatarsal, consistent with progressive healing. DISCUSSION: Three views [facility] foot are compared to prior studies dated 14 June 2015, and studies dated 10 May 2015. The stress fracture at the n onarticular surface of the base of the second metatarsal is vaguely evident showing increasing ossification with decreasing visualization secondary to osteoid deposition. Minimal adjacent periosteal response. The findings are consistent with progressive healing of a nondisplaced stress fracture or of the second metatarsal. No other interval changes are evident. Foot series DX EXAMINATION: Right foot series. 06/14/2015 [employer] HISTORY: Right foot stress fracture FINDINGS: 3 view weight-bear ing examination of the right foot is performed and compared to 05/10/2015. There is a transverse, nondi splaced, extra articular stress fracture at the base of the right second metatarsal. There are no additional fractures or dislocations. There is mild pes planus. The joint sp aces are normal. There is no ankle effusion. There are no radiopaque foreign bodies identified. IMPRESSION: 1. Transverse, nondisplaced, extra articular stress fracture at the base of the right second metatarsal. 2. Mild right pes planus. Foot series DX Examination: Foot series 05/10/2015 [employer] Provided History: pain DIAGNOSIS: 1. 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 No fractures are noted no destructive lesions. The remainder the study is unremarkable. Consultation Notes No Data Provided for This Section Discharge Summaries No Data Provided for This Section History and Physicals No Data Provided for This Section Vital Signs Vital Sign Value Date Comments Source Systolic (mm Hg) 116 10/03/2020 Medical Group Diastolic (mm Hg) 80 10/03/2020 Medical Group Heart Rate 86 10/03/2020 Medical Grou p Temperature Oral (F) 97.8 F 10/03/2020 [facility] reina Group Height 187.96 cm 10/03/2020 [facility] Heart Rate 108 08/20/2020 [facility] Systolic (mm Hg) 74 08/20/2020 [facility] Diastolic (mm Hg) 57 08/20/2020 [facility] Heart Rate 125 08/20/2020 [facility] Temperature Oral (F) 97.6 F 08/20/2020 [facility] Height 187.96 cm 08/20/2020 [facility] Weight 92.273 08/20/2020 [facility] BMI Calculated 26.12 08/20/2020 [facility] Systolic (mm Hg) 110 03/20/2020 [facility] Diastolic (mm Hg) 76 03/20/2020 [facility] Heart Rate 90 03/20/2020 [facility] Temperature Oral (F) 97.7 F 03/20/2020 [facility] Height 187.96 cm 03/20/2020 [facility] Weight 99.432 03/20/2020 [facility] BMI Calculated 28.14 03/20/2020 [facility] Systolic (mm Hg) 102 12/15/2019 [facility] Diastolic (mm Hg) 72 12/15/2019 [facility] Heart Rate 87 12/15/2019 [facility] Temperature Oral (F) 97.4 F 12/15/2019 [facility] Height 187.96 cm 12/15/2019 [facility] Weight 101.818 12/15/2019 [facility] BMI Calculated 28.82 12/15/2019 [facility] Systolic (mm Hg) 93 11/11/2019 [facility] Diastolic (mm Hg) 66 11/11/2019 [facility] Heart Rate 100 11/11/2019 [facility] Temperature Oral (F) 97.7 F 11/11/2019 [facility] Height 187.96 cm 11/11/2019 [facility] Weight 102.955 11/11/2019 [facility] BMI Calculated 29.14 11/11/2019 [facility] Systolic (mm Hg) 115 08/04/2019 [facility] Diastolic (mm Hg) 77 08/04/2019 [facility] Heart Rate 75 08/04/2019 [facility] Temperature Oral (F) 97.5 F 08/04/2019 [facility] Height 185.42 cm 08/04/2019 [facility] Weight 104.091 08/04/2019 [facility] BMI Calculated 30.28 08/04/2019 [facility] BMI Calculated 30.41 03/22/2019 [facility] Weight 104.545 03/22/2019 [facility] Height 185.42 cm 03/22/2019 [facility] Heart Rate 77 03/22/2019 [facility] Temperature Oral (F) 97.6 F 03/22/2019 [facility] Systolic (mm Hg) 111 03/22/2019 [facility] Diastolic (mm Hg) 71 03/22/2019 [facility] Height 185.42 cm 12/09/2018 [facility] BMI Calculated 30.28 12/09/2018 [facility] Weight 104.091 12/09/2018 [facility] Temperature Oral (F) 97.8 F 12/09/2018 [facility] Heart Rate 87 12/09/2018 [facility] Systolic (mm Hg) 94 12/09/2018 [facility] Diastolic (mm Hg) 64 12/09/2018 [facility] BMI Calculated 29.22 08/04/2018 [facility] Weight 100.455 08/04/2018 [facility] Height 185.42 cm 08/04/2018 [facility] Heart Rate 80 08/04/2018 [facility] Temperature Oral (F) 98.0 F 08/04/2018 [facility] Systolic (mm Hg) 122 08/04/2018 [facility] Diastolic (mm Hg) 74 08/04/2018 [facility] Height 185.42 cm 04/07/2018 [facility] Weight 100.682 04/07/2018 [facility] BMI Calculated 29.28 04/07/2018 [facility] Heart Rate 68 04/07/2018 [facility] Temperature Oral (F) 97.6 F 04/07/2018 [facility] Systolic (mm Hg) 102 04/07/2018 [facility] Diastolic (mm Hg) 70 04/07/2018 [facility] Weight 98.182 01/04/2018 [facility] BMI Calculated 28.56 01/04/2018 [facility] Height 185.42 cm 01/04/2018 [facility] Systolic (mm Hg) 114 01/04/2018 [facility] Diastolic (mm Hg) 78 01/04/2018 [facility] Heart Rate 72 01/04/2018 [facility] Temperature Oral (F) 97.1 F 01/04/2018 [facility] Height 185.42 cm 09/29/2017 [facility] BMI Calculated 28.29 09/29/2017 [facility] Weight 97.273 09/29/2017 [facility] Heart Rate 81 09/29/2017 [facility] Temperature Oral (F) 98.0 F 09/29/2017 [facility] Systolic (mm Hg) 110 09/29/2017 [facility] Diastolic (mm Hg) 80 09/29/2017 [facility] Encounters Location Location Encounter Encounter Reason Attending ADM DC Stat us Source Details Type Number For Provider Date Date Visit Outpatient [id number] 05[place]10 [facility] [place] [place] [facility] Diag [id number] Raheem 05/10 05/11 [facility] [place] Outpatient [id number] RAHEEM 06/14 [facility] [place] [facility] [place] [facility] Outpt Diag [id number] Raheem 06/14 06/15 [facility] [place] Outpatient [id number] [place] 07/24 [facility] [place] Outpatient [id number] RAHEEM 07/24 [facility] [place] [facility] [place] [facility] Outpt Diag [id number] Raheem 07/24 07/25 [facility] [place] Outpatient [id number] RAHEEM 08/21 [facility] Outpt Diag [id number] Raheem 08/21 08/22 [facility] Alexandro [facility] [place] Outpatient [id number] 11/27 [facility] [place] Outpatient [id number] 06/24 [facility] [place] Outpatient [id number] [place] 10/29 [facility] [place] Outpatient [id number] [place] 03/02 [facility] [place] Outpatient [id number] [place] 06/01 [facility] [place] Outpatient [id number] [place] 06/02 [facility] [place] Outpatient [id number] [place] 09/29 [facility] Outpatient [id number] [place] 09/29 09/30 Internal [facility] [place] Outpatient [id number] LAB VISIT 12/22 Acti ve [facility] [place] MG Ambulatory [id number] 12/22 12/22 Internal Pre-Reg [facility] [place] Outpatient [id number] 12/31 [facility] [id number] [place] 12/31 12/31 Internal Pre-Reg [facility] [place] Outpatient [id number] 01/04 [facility] [id number] 01/04 Internal [facility] [place] Outpatient [id number] [place] 04/07 [facility] [id number] [place] 04/07 04/08 Internal [facility] [place] Outpatient [id number] LAB VISIT 07/28 [facility] [id number] 07/28 07/28 Internal Pre-Reg [facility] [place] Outpatient [id number] 08/04 [facility] [place] MG Outpatient [id number] 08/04 Internal [facility] [place] Outpatient [id number] 12/09 [facility] Outpatient [id number] 12/09 Internal [facility] [place] Outpatient [id number] 03/22 [facility] Outpatient [id number] 03/22 Internal [facility] [place] Outpatient [id number] 07/21 Act [facility] [place] [facility] Ambulatory [id number] 07/21 07/21 Internal Pre-Reg /2018 [facility] [place] Outpatient [id number] 08/04 [facility] Outpatient [id number] 08/04 Internal [facility] [place] Outpatient [id number] 11/11 [facility] Outpatient [id number] 11/11 Internal [facility] [place] [facility] Phone [id number] 12/12 12/14 Internal Message [facility] [place] Outpatient [id number] 12/14 [facility] [place] [facility] Outpatient [id number] 12/14 Internal [facility] [place] [facility] Phone [id number] 03/02 03/04 Internal Message [facility] [place] Outpatient [id number] 03/20 [facility] [place] [facility] Outpatient [id number] [place] 03/20 03/21 Internal [facility] [place] [facility] Phone [id number] 06/11 06/13 Internal Message /2019 [facility] [place] Outpatient [id number] 06/15 Act [facility] [place] LAB Outpatient [id number] 06/22 [facility] [place] Outpatient [id number] 08/20 [facility] [place] [facility] Outpatient [id number] [place] 08/20 08/21 Internal [facility] Phone [id number] 09/12 09/14 Internal Message /2019 [facility] Phone [id number] 09/18 09/20 Internal Message /2019 [facility] [place] Outpatient [id number] 10/03 [facility] [id number] 10/03 Internal [facility] /2019 [facility] [place] Outpatient [id number] 12/25 Act [facility] [place] LAB Outpatient [id number] 01/01 [facility] [place] Procedures Procedure Code Date Perfomer Comments Source Diabetic retinal 138293669 10/12/2019 Dr. Cadet Medic al eye Normal exam Group exam<sup>1</sup> Colonoscopy<sup>1</ [id number] 06/12/2012 polyps- unsure [facility]> when to repeat Group, [facility] [place] Colonoscopy<sup>2</ [id number] 06/12/2012 polyps- unsure [facility] sup> when to repeat Group Ureteroscopy [id number] Medical Group, [facility] [place] Assessment and Plan No Data Provided for This Section Plan of Care No Data Provided for This Section Social History Social History Date Source Social History TypeResponse 10/03/2020 [facility] Smoking Status Never smoker; Exposure to Tobacco Smoke None; Cigarette Smoking Last 365 Days No; Reg Smoking Cessation Counseling No entered on: 10/03/20 Social History TypeResponse 08/21/2015 [facility] [place] Smoking Status Never smoker; Exposure to Tobacco Smoke None; Cigarette Smoking Last 365 Days No; Reg Smoking Cessation Counseling No Family History No Data Provided for This Section Advance Directives No Data Provided for This Section Functional Status No Data Provided for This Section
--- OUTSIDE RECORDS SUMMARY | 2020-11-08 08:08 | XMS REPORT ---
:1950 Author Organization [facility] Address [address] [place] [address] Care Team Providers Name Role Phone Lucia Romero Unavailable [phone] PROBLEMS Type Condition ICD9-CM [id number] Onset Condition SNOMED Code Notes Code Code Dates Status Problem Pain in joint M25.572 Active 866879595 involving left ankle and foot Problem Kidney stone N20.0 Active 03358820 ALLERGIES Allergen (clinical drug Drug/Non Drug Allergy Reaction Allergy Type Onset Date Status ingredient) documented on EMR andrea Clarke([facility] Unknown Drug Allergy Active Code:[address]-64) ENCOUNTERS from 1950 to 2020-11-06 Encounter Location Date Provider Diagnosis [place] [address] [facility] Oct, Lucia Romero Kidney s tone N20.0 Specialty/Urology [address] [place] [id number] IMMUNIZATIONS No Information SOCIAL HISTORY Tobacco Use: Social History Observation Description Date Details (start date - stop date) Never Smoker Sex Assigned At : Social History Observation Description Sex Assigned At Unknown Alcohol Screen Question Answer Notes Did you have a drink containing alcohol in the past year? Ye s Points 0 Interpretation Negative How many drinks did you have on a typical day when you were 1 or 2 (0 points) drinking in the past year? Tobacco Use/Smoking Question Answer Notes Are you a never smoker Additional Findings: Tobacco Non-User Current non-smoker REASON FOR REFERRAL No Information VITAL SIGNS Height 74 in Oct, Weight 213.0 lbs Oct, Temperature 97.6 degrees Fahrenheit Oct, BMI 27.34 kg/m2 26 Steve, 2021 Oximetry 97 % Oct, Blood pressure systolic 119 mm Hg Oct, Blood pressure diastolic 77 mm Hg Oct, MEDICATIONS Medication SIG (Take, Route, Notes Start Date End Date Status Frequency, Duration) Pioglitazone HCl 15 MG 1 tablet Orally Once a Active day Metformin HCl 500 MG 1 tablet with a meal Active Orally Once a day for 30 day(s) Hydrochlorothiazide 25 MG 1 tablet in the morning Active Orally Once a day for 30 day(s) Allopurinol 300 MG 1 tablet Orally Once a Active day Multi Vitamin Daily - 1 tablet Orally Once a Active day Lantus 100 UNIT/ML as directed Subcutaneous Active Rosuvastatin Calcium 40 MG 1 tablet Orally Once a Active day Docusate Calcium 240 MG 1 capsule as needed Active Orally Once a day PROCEDURES No Information RESULTS No Results REASON FOR VISIT KIDNEY STONE MEDICAL (GENERAL) HISTORY Type Description Date Medical History blood thinner- aspirin Medical History diabetes Medical History kidney problems Medical History gout Medical History hbp Surgical History EYE Surgical History COLONOSCOPY Surgical History kidney stones Goals Section No Information Health Concerns No Information MEDICAL EQUIPMENT No Information MENTAL STATUS No Information FUNCTIONAL STATUS No Information ASSESSMENTS Encounter Date Diagnosis Assessment Notes Treatment Notes Treatm ent Clinical Notes Oct, Kidney stone CT report revie thu, (ICD-10 - N20.0) Left proxim al 11mm ureteral stone with mild hydro, lik jung too big to pass . Bilateral nephrolithiasis Has flomax, ok to continue Zofran prn Tylenol #3, valente n is well managed wi th this, ok to use stool softeners for constipation Meet Dr. Stuart lynch, PACO, plan for procedure/ lithotripsy, pe nding his review of C T images PSA after recov ered from stone intervention CD and report o f CT given to Lucia Montes MA fo r Dr. Montejo to revi ew Go to ER if inc rease in pain, fever, chills, N &V ROV prn, appt w tih WR PLAN OF TREATMENT Treatment Notes Assessment Notes Clinical Notes Kidney stone CT report reviewed, Left proximal 11mm ureteral stone with mild hydro, likely too bi g to pass. Bilateral nephrolithiasisHas flomax, ok to contin ueZofran prnTylenol #3, pain is well managed with this, ok to use stool softeners for constipationMeet Dr. Montejo, PACO, plan f or procedure/ lithotripsy, pending his review of CT imagesPSA aft er recovered from stone interventionCD and report of CT given t o Lucia Montes MA for Dr. oMntejo to reviewGo to ER if in crease in pain, fever, chills, N &VROV prn, appt wtih WR Treatment Notes Test Name Order Date URINALYSIS AUTO W/O SCOPE ([id number]) 2020-11-06 URINALYSIS, COMPLETE W/REFLEX TO CULTURE 2020-11-06 PVR 2020-11-06 Next Appt Details 2 - 3 Days Reason:stones Provider Name:Jayant Montejo, 03:30:00 PM, [address] [facility] [address], [place], [phone], Follow Up:2 - 3 Daysstones Insurance Providers Payer Name Payer Payer Insured Patient Coverage Coverage End Address Phone Name Relationship to Start Date Dennys e Insured [phone] [facility] [id number] [phone]
--- OUTSIDE RECORDS SUMMARY | 2020-11-08 08:08 | XMS REPORT | Continuity of Care Document ---
:1950 Author Organization [facility] t Address [address] [place] [address] Care Team Providers Name Role Phone Aniyah Morataya Attending Clinician Lab, Fam Pob I Attending Clinician Unavailable Pob1, Care Clinic Attending Clinician Unavailable Naomy Mc Attending Clinician Problems Condition Condition Condition Status Onset Resolution Last Treating Co mments Source Name Details Category Date Date Treatment Clinician Date M25.5 - Diagnosis Active 2014-102015-07-24 Me moria PAIN IN 0-13 15:05:00 l JOINT M25.5 - 00:01: Jonn PAIN IN 00 JOINT Active 07/24/2015 [facility] Foot pain Problem Active 2015-06-17 Me moria (finding) 05-10 08:19:30 l Foot 00:00: [place] pain 00 (finding) Active 05/10/2015 Problem 06/17/2015 [facility]15. MH OP[facility] 719.4 - Diagnosis Active 2015-05-10 Me moria PAIN IN - 12:52:00 l JOINT 719.4 - 00:01: [place] PAIN IN 00 JOINT Active 05/09/2015 MH [facility] Chronic Problem Active 2020-10-06 Jose walter kidney 07-04 00:34:24 l disease Chronic 00:00: Luis Angel n stage 3 kidney 00 (disorder) disease stage 3 (disorder) Active 07/04/2013 Problem 10/06/2020 Data migrated from [employer] on 03/10/15. [facility] Diabetes Problem Resolve 2015-08-24 Me moria mellitus d 05:22:40 l (disorder) Diabetes He rmann mellitus (disorder) Resolved Problem 08/24/2015 [facility] Benign Problem Active 2020-10-06 Memor ia hypertensi 00:34:24 l on Benign Jonn (disorder) hypertensi on (disorder) Active Problem 10/06/2020 Data migrated from [employer] on 03/10/15. [facility] OPID [facility] Gout Problem Active 2020-10-06 Memor ia (disorder) 00:34:24 l Gout [place] (disorder) Active Problem 10/06/2020 Data migrated from [employer] on 03/10/15. [facility] OP[facility] Mixed Problem Active 2020-10-06 Memor ia hyperlipid 00:34:24 l emia Mixed Jonn (disorder) hyperlipid emia (disorder) Active Problem 10/06/2020 Medical Group Type II Problem Active 2020-10-06 Jose walter diabetes 00:34:24 l mellitus Type II Teresa nn uncontroll diabetes ed mellitus (finding) uncontroll ed (finding) Active Problem 10/06/2020 Medical Group Diabetes Problem Active 2017-10-02 Mem oria mellitus 01:07:29 l type 2 Diabetes Luis Angel n (disorder) mellitus type 2 (disorder) Active Problem 10/02/2017 Data migrated from [employer] on 03/10/15. Medical [facility] OPID [facility] Diabetic Problem Active 2015-06-17 Mem oria renal 08:19:30 l disease Diabetic Teresa nn (disorder) renal disease (disorder) Active Problem 06/17/2015 Data migrated from [employer] on 03/10/15. [facility] Hyperchole Problem Active 2015-08-24 M emoria sterolemia 05:22:40 l (disorder) Luis Angel n Hyperchole sterolemia (disorder) Active Problem 08/24/2015 Data migrated from [employer] on 03/10/15. [facility] History of Past Illness Condition Condition Condition Status Onset Resolution Last Treating Co mments Source Name Details Category Date Date Treatment Clinician Date Stress Problem Resolve 2020-10-06 2020-10-06 Memoria fracture d 7 00:34:24 00:34:24 l of Stress 00:00: Jonn metatarsal fracture 00 bone of (disorder) metatarsal bone (disorder) Resolved 05/10/2015 Problem 10/06/2020 Data migrated from [employer] on 06/02/15. [facility] Testicular Problem Resolve 2020-10-06 2020-10-06 Memoria hypofuncti d 12-30 00:34:24 00:34:24 l on 00:00: [place] (disorder) Testicular 00 hypofuncti on (disorder) Resolved 12/30/2012 Problem 10/06/2020 Data migrated from [employer] on 03/10/15. [facility] Hyperkerat Problem Resolve 2015-08-24 2015-08-24 Memoria osis d 01-02 05:22:40 05:22:40 l (disorder) 00:00: Luis Angel n Hyperkerat 00 osis (disorder) Resolved 01/02/2014 Problem 08/24/2015 Data migrated from [employer] on 03/10/15. OP[facility] Allergies, Adverse Reactions, Alerts Allergy Allergy Status Severity Reaction(s) Onset Inactive Treating Comm ents Source Name Type Date Date Clinician Tricia Adverse Active Info Not [facility] Reaction [facility] niacin<s niacin<s Active Memori a up>1</kerr up>1</kerr l p> p> Jonn Social History Smoking Status Start Date Stop Date Source Social History [facility] Jonn Medications Ordered Filled Start Stop Current Ordering Indication Dosage Frequency Signature Comments Components Source Medication Medication Date Date Medication? Clinician (SIG) Name Name 3 ML 2019-10 Yes 40 units, Chante Insulin 2-23 SUB-Q, l Glargine 17:57: DailyJonn 100 UNT/ML 00 Inject / once Lixisenatid within the e 0.033 hour prior MG/ML Pen to the Injector first meal [Soliqua] of the day; one month supply, # 1 ea, 5 Refill(s) OneTouch 2019-10 Yes 1 ea, Memoria Ultra Blue 2-08 MISC, TID, l Blood 15:12: # 300 ea, Jonn Glucose 00 Insulin Test Strip dependent, Does not use insulin pump, Last DM eval date 08/20/20, 3 Refill(s), Pharmacy: [facility], 187.96, cm, 08/20/20 13:58:00 K [employer], Height, 92.273, kg, 08/20/20 13:58:00 K 9 [employer], Weight allopurinol 2019-10 Yes = 1 tab, Me moria 300 mg oral 2-08 PO, Daily, l tablet 15:11: # 90 tab, Luis Angel n 00 3 Refill(s), Pharmacy: [facility], 187.96, cm, 08/20/20 13:58:00 K 9 [employer], Height, 92.273, kg, 08/20/20 13:58:00 K 9 [employer], Weight Metformin 2019-10 Yes = 1 tab, Jose walter hydrochlori 2-08 PO, BID, # l de 850 MG 15:11: 180 tab, 3 He rmann Oral Tablet 00 Refill(s), Pharmacy: [facility], 187.96, cm, 08/20/20 13:58:00 K 9 [employer] OFF[employer]ER, Height, 92.273, kg, 08/20/20 13:58:00 K 9 [employer] OFF[employer]ER, Weight perindopril 2019-10 Yes = 1 tab, Me moria 8 mg oral 2-08 PO, Daily, l tablet 15:11: # 90 tab, Luis Angel n 00 3 Refill(s), [facility], 187.96, cm, 08/20/20 13:58:00 K 9 [employer] OFF[employer]ER, Height, 92.273, kg, 08/20/20 13:58:00 K 9 [employer] OFF[employer], Weight 0.25 MG, Yes 0.5 mg, Memori a 0.5 MG Dose 6-09 SUB-Q, l 1.5 ML 16:35: Q7D, use [place] semaglutide 00 after 1.34 MG/ML starter Pen kit, # 2 Injector mL, 5 [Ozempic] Refill(s), Pharmacy: [id number] Azithromyci 2019-0 Yes See Memori a n 5 Day 1-31 Instructio l Dose Pack 17:23: ns, Take 2 He rmann 250 mg oral 00 tablets by tablet mouth the first day then 1 tablet by mouth days 2-5., X 5 day, # 6 tab, 0 Refill(s) benzonatate Yes 100 mg = 1 Memoria 100 MG Oral 1-31 cap, PO, l Capsule 17:23: TID, PRN Luis Angel n [Tessalon 00 Cough/Pete Perles] estion, X 10 day, # 30 cap, 0 Refill(s) moxifloxaci Yes 1 drp, Jose walter n 5 MG/ML 6-11 Each l Ophthalmic 16:55: Affected Her martins Solution 00 Eye, TID, [Vigamox] X 7 day, # 3 mL, 0 Refill(s) BD Yes See Memoria Ultra-Fine 2-28 Instructio l original 17:41: ns, MISC Teresa nn Insulin Pen 00 Daily, # [place] 29G 100 ea, 3 12.7mm=1/2 Refill(s), inch Pharmacy: [facility] Hydrochloro Yes See Memori a thiazide 25 2-04 Instructio l MG Oral 20:43: ns, TAKE 1 Herm selin Tablet 00 TABLET DAILY, # 90 tab, 1 Refill(s), Pharmacy: [facility] Fenofibrate Yes See Memori a 160 MG Oral 2-04 Instructio l Tablet 20:43: ns, TAKE 1 Teresa nn 00 TABLET DAILY, # 90 tab, 1 Refill(s), Pharmacy: [facility] rosuvastati Yes See Memori a n 40 mg 2-04 Instructio l oral tablet 20:43: ns, TAKE 1 [place] 00 TABLET DAILY, # 90 tab, 3 Refill(s), Pharmacy: [facility] perindopril 2018- Yes See Memori a 8 mg oral 2-04 Instructio l tablet 20:43: ns, TAKE 1 Teresa nn 00 TABLET DAILY, # 90 tab, 1 Refill(s), Pharmacy: [facility] allopurinol Yes See Memori a 300 mg oral 2-04 Instructio l tablet 20:43: ns, TAKE 1 Teresa nn 00 TABLET DAILY, # 90 tab, 1 Refill(s), Pharmacy: [facility] Metformin Yes See [facility] hydrochlori 2-04 Instructio l de 850 MG 20:43: ns, TAKE 1 He rmann Oral Tablet 00 TABLET TWICE A DAY, # 180 tab, 1 Refill(s), Pharmacy: [facility] Colchicine Yes 0.6 mg = 1 M emoria 0.6 MG Oral 6-27 tab, PO, l Tablet 15:32: BID, PRN Jonn 00 gout/joint pain, # 60 tab, 0 Refill(s), Pharmacy: [facility] [employer] [id number] pioglOctoniuszon Yes 15 mg = 1 M emoria e 15 MG 3-26 tab, PO, l Oral Tablet 15:58: Daily, # He rmann [Actos] 29 30 tab, 0 Refill(s), Pharmacy: [facility] [id number] pioglitazon No 15 mg = 1 M emoria e 15 MG 3-26 tab, PO, l Oral Tablet 15:57: Daily, # Sukumar rmann [Actos] 00 90 tab, 1 Refill(s), Pharmacy: [facility] Maria Dolores Whitten Yes Carlos as [facility] Dios directed [facility] ent Clinics Hydrochloro Hydrochloro Yes Carlos [address] [facility] thiazide thiazide De Dios in the [place] es - morning [facility] Metformin Metformin Yes Carlos [address] [facility] HCl HCl De [facility] with a [facility] meal [facility] Vital Signs Vital Name Observation Time Observation Value Comments Source Systolic (mm Hg) 2020-10-03 17:21:00 Jose rial [place] Diastolic (mm Hg) 2020-10-03 17:21:00 Mem orial [place] Heart Rate 2020-10-03 17:21:00 [facility] Jonn Temperature Oral (F) 2020-10-03 17:21:00 97.8 F [facility] Jonn Height 2020-10-03 17:21:00 187.96 cm [facility] Jonn Heart Rate 2020-08-20 20:37:00 [facility] Jonn Systolic (mm Hg) 2020-08-20 19:58:00 Jose rial [place] Diastolic (mm Hg) 2020-08-20 19:58:00 Mem orial [place] Heart Rate 2020-08-20 19:58:00 [facility] [place] Temperature Oral (F) 2020-08-20 19:58:00 97.6 F [facility] [place] Height 2020-08-20 19:58:00 187.96 cm [facility] [place] Weight 2020-08-20 19:58:00 [facility] [place] BMI Calculated 2020-08-20 19:58:00 Memori al Jonn Systolic (mm Hg) 2020-03-20 16:05:00 Jose rial [place] Diastolic (mm Hg) 2020-03-20 16:05:00 Mem orial [place] Heart Rate 2020-03-20 16:05:00 [facility] [place] Temperature Oral (F) 2020-03-20 16:05:00 97.7 F [facility] Jonn Height 2020-03-20 16:05:00 187.96 cm [facility] Jonn Weight 2020-03-20 16:05:00 [facility] [place] BMI Calculated 2020-03-20 16:05:00 Memori al [place] Systolic (mm Hg) 2019-12-15 17:19:00 Jose rial [place] Diastolic (mm Hg) 2019-12-15 17:19:00 Mem orial [place] Heart Rate 2019-12-15 17:19:00 [facility] [place] Temperature Oral (F) 2019-12-15 17:19:00 97.4 F [facility] Jonn Height 2019-12-15 17:19:00 187.96 cm [facility] [place] Weight 2019-12-15 17:19:00 [facility] [place] BMI Calculated 2019-12-15 17:19:00 Memori al [place] Systolic (mm Hg) 2019-11-11 16:54:00 Jose rial [place] Diastolic (mm Hg) 2019-11-11 16:54:00 Mem orial [place] Heart Rate 2019-11-11 16:54:00 [facility] Jonn Temperature Oral (F) 2019-11-11 16:54:00 97.7 F [facility] Jonn Height 2019-11-11 16:54:00 187.96 cm [facility] Jonn Weight 2019-11-11 16:54:00 [facility] [place] BMI Calculated 2019-11-11 16:54:00 Memori al [place] Systolic (mm Hg) 2019-08-04 16:02:00 Jose rial Jonn Diastolic (mm Hg) 2019-08-04 16:02:00 Mem orial [place] Heart Rate 2019-08-04 16:02:00 [facility] Jonn Temperature Oral (F) 2019-08-04 16:02:00 97.5 F [facility] [place] Height 2019-08-04 16:02:00 185.42 cm [facility] [place] Weight 2019-08-04 16:02:00 [facility] [place] BMI Calculated 2019-08-04 16:02:00 Memori al Jnon BMI Calculated 2019-03-22 16:02:00 Memori al Jonn Weight 2019-03-22 16:02:00 [facility] Jon[place] Height 2019-03-22 16:02:00 185.42 cm [facility] [place] Heart Rate 2019-03-22 16:02:00 [facility] [place] Temperature Oral (F) 2019-03-22 16:02:00 97.6 F [facility] [place] Systolic (mm Hg) 2019-03-22 16:02:00 Jose rial Jonn Diastolic (mm Hg) 2019-03-22 16:02:00 Mem orial Jonn Height 2018-12-09 17:20:00 185.42 cm [facility] [place] BMI Calculated 2018-12-09 17:20:00 Memori al Jonn Weight 2018-12-09 17:20:00 [facility] Jon[place] Temperature Oral (F) 2018-12-09 17:20:00 97.8 F [facility] [place] Heart Rate 2018-12-09 17:20:00 [facility] Jon[place] Systolic (mm Hg) 2018-12-09 17:20:00 Jose rial [place] Diastolic (mm Hg) 2018-12-09 17:20:00 Mem orial [place] BMI Calculated 2018-08-04 16:15:00 Memori al Jonn Weight 2018-08-04 16:15:00 [facility] [place] Height 2018-08-04 16:15:00 185.42 cm [facility] [place] Heart Rate 2018-08-04 16:15:00 [facility] Jonn Temperature Oral (F) 2018-08-04 16:15:00 98.0 F [facility] [place] Systolic (mm Hg) 2018-08-04 16:15:00 Jose rial [place] Diastolic (mm Hg) 2018-08-04 16:15:00 Mem orial [place] Height 2018-04-07 15:06:00 185.42 cm [facility] [place] Weight 2018-04-07 15:06:00 [facility] Jonn BMI Calculated 2018-04-07 15:06:00 Memori al [place] Heart Rate 2018-04-07 15:06:00 [facility] [place] Temperature Oral (F) 2018-04-07 15:06:00 97.6 F [facility] [place] Systolic (mm Hg) 2018-04-07 15:06:00 Jose rial Jonn Diastolic (mm Hg) 2018-04-07 15:06:00 Mem orial [place] Weight 2018-01-04 15:26:00 [facility] [place] BMI Calculated 2018-01-04 15:26:00 Memori al [place] Height 2018-01-04 15:26:00 185.42 cm [facility] Jonn Systolic (mm Hg) 2018-01-04 15:26:00 Jose rial [place] Diastolic (mm Hg) 2018-01-04 15:26:00 Mem orial [place] Heart Rate 2018-01-04 15:26:00 [facility] [place] Temperature Oral (F) 2018-01-04 15:26:00 97.1 F [facility] Jonn Height 2017-09-29 17:17:00 185.42 cm [facility] Jonn BMI Calculated 2017-09-29 17:17:00 Memori al Jonn Weight 2017-09-29 17:17:00 [facility] [place] Heart Rate 2017-09-29 17:17:00 [facility] Jonn Temperature Oral (F) 2017-09-29 17:17:00 98.0 F [facility] [place] Systolic (mm Hg) 2017-09-29 17:17:00 Jose rial [place] Diastolic (mm Hg) 2017-09-29 17:17:00 Mem orial Jonn Procedures Procedure Date / Time Performed Performing Clinician [facility] e Diabetic retinal eye 2019-10-12 00:00:00 Chante miner [place] exam<sup>1</sup> Colonoscopy<sup>2</sup> 2012-06-12 05:00:00 Jose rial Jonn Ureteroscopy [facility] Jonn Encounters Start End Encounter Admission Attending Care Care Encounter Source Date/Time Date/Time Type Type Clinicians Facility Department ID 2020-11-07 2020-11-07 [id number] [place] [facility] 2020-11-062020-11-06 Outpatient [facility] [id number] [facility] 2020-10-03 2020-10-03 Outpatient REBECCA Morataya [facility] [id number] 11:15:00 23:59:59 Aniyah 27 Hernandez 2020-09-18 2020-09-19 Outpatient [facility] [id number] 08:46:06 23:59:59 09 2020-09-12 2020-09-13 Outpatient [facility] [id number] 08:15:27 23:59:59 08 2020-08-20 2020-08-20 Outpatient REBECCA Morataya [facility] [id number] 14:15:00 23:59:59 Aniyah 28 Hernandez 2020-06-11 2020-06-12 Outpatient [facility] [id number] 14:21:15 23:59:59 07 2020-04-21 2020-04-21 Laboratory Lab, [facility] [id number] 13:10:29 13:30:29 Only [facility]am [facility] [id number] Jesse [id number] Professio [id number] nal [address] 2020-04-21 2020-04-21 Urgent Pob1, Acute [facility] [id number] 12:20:00 12:40:00 [facility] [id number] Jesse [id number] Professio [id number] nal [facility] [address] 2020-03-20 2020-03-20 Outpatient REBECCA Morataya [facility] [id number] 11:00:00 23:59:59 Aniyah 24 Hernandez 2020-03-02 2020-03-03 Outpatient [facility] [id number] 13:13:30 23:59:59 06 2019-12-15 2019-12-15 Outpatient REBECCA Morataya [facility] [id number] 11:15:00 23:59:59 Aniyah 22 Hernandez 2019-12-13 2019-12-14 Outpatient [facility] [id number] 11:06:33 23:59:59 05 2019-11-11 2019-11-11 Outpatient REBECCA Morataya MG [id number] 10:30:00 23:59:59 Aniyah 23 Hernandez 2019-08-04 2019-08-04 Outpatient REBECCA Morataya MG [id number] 11:15:00 23:59:59 Aniyah 20 Hernandez 2019-07-21 2019-07-21 Outpatient MG MG [id number] 09:30:00 09:30:00 21 2019-03-22 2019-03-22 Outpatient REBECCA Morataya MG [id number] 11:15:00 23:59:59 Aniyah 19 Hernandez 2018-12-09 2018-12-09 Outpatient REBECCA Morataya MG [id number] 11:15:00 23:59:59 Aniyah 18 Hernandez 2018-08-04 2018-08-04 Outpatient REBECCA Morataya MG [id number] 11:15:00 23:59:59 Aniyah 16 Hernandez 2018-07-28 2018-07-28 [id number] 08:30:00 08:30:00 17 2018-05-03 2018-05-03 [facility] [id number] 08:30:00 08:30[facility]00 [facility] 2018-04-07 2018-04-07 Outpatient REBECCA Morataya MG [id number] 10:00:00 23:59:59 Aniyah 15 Hernandez 2018-01-04 2018-01-04 Outpatient REBECCA Morataya MG [id number] 10:30:00 23:59:59 Aniyah 14 Hernandez 2017-12-31 2017-12-31 Outpatient REBECCA Morataya MG [id number] 11:00:00 11:00:00 Aniyah 12 Hernandez 2017-12-22 2017-12-22 Outpatient MG [facility] [id number] 08:30:00 08:30:00 13 2017-09-29 2017-09-29 Outpatient REBECCA Morataya MG [id number] 11:15:00 23:59:59 Aniyah Hernandez 2015-08-21 2015-08-21 Outpatient Alexandro 29 MH29 [id number] 13:30:00 23:59:00 Jani Moralez 2015-07-24 2015-07-24 Outpatient SIMONE Mc29 MH29 [id number] 14:41:00 23:59:00 Jani Moralez 2015-06-14 2015-06-14 Outpatient Alexandro China MH29 [id number] 14:49:00 23:59:00 Jani Moralez 2015-05-10 2015-05-10 Outpatient Alexandro China MH29 [id number] 12:41:00 23:59:00 Jani Moralez Results Test Description Test Time Test Comments Results Result Comments Source ELECTROLYTES 2018-11-22 100 [facility] martins 15:23:00 ELECTROLYTES 2018-11-22 4.6 [facility] Her martins 15:23:00 ELECTROLYTES 2018-11-22 30 [facility] Her martins 15:23:00 ELECTROLYTES 2018-11-22 1.8 [facility] Her martins 15:23:00 ELECTROLYTES 2018-11-22 6.5 [facility] Her martins 15:23:00 ELECTROLYTES 2018-11-22 9.4 [facility] Her martins 15:23:00 ELECTROLYTES 2018-11-22 4.2 [facility] Her martins 15:23:00 ELECTROLYTES 2018-11-22 33 [facility] Her martins 15:23:00 ELECTROLYTES 2018-11-22 16 [facility] Her martins 15:23:00 ELECTROLYTES 2018-11-22 20 [facility] Her martins 15:23:00 ELECTROLYTES 2018-11-22 2.3 [facility] Her martins 15:23:00 ELECTROLYTES 2018-11-22 0.5 [facility] Her martins 15:23:00 ELECTROLYTES 2018-11-22 1.62 [facility] Her martins 15:23:00 ELECTROLYTES 2018-11-22 23 [facility] Her martins 15:23:00 ELECTROLYTES 2018-11-22 43 [facility] Her martins 15:23:00 ELECTROLYTES 2018-11-22 140 [facility] Her martins 15:23:00 ELECTROLYTES 2018-11-22 14 [facility] Her martins 15:23:00 ELECTROLYTES 2018-11-22 50 [facility] Her martins 15:23:00 ELECTROLYTES 2018-11-22 138 [facility] Her martins 15:23:00 HEMATOLOGY 2018-11-22 13.4 [facility] Teresa nn 15:23:00 HEMATOLOGY 2018-11-22 4.23 [facility] Teresa nn 15:23:00 HEMATOLOGY 2018-11-22 40.3 [facility] Teresa nn 15:23:00 HEMATOLOGY 2018-11-22 6.5 [facility] Teresa nn 15:23:00 HEMATOLOGY 2018-11-22 15:23:00 Test Item Value Reference Range Interpretation Comme nts MCH (test code = MCH) 31.7 pg 27.0-33.0 Memorial [id number] 15:23:0033.3[facility] HermannHEMATOLOGY 2018-11-22 15:23:0095.3[facility] EkjmipgUPCOACYXMG2287-63-29 15:23:0012.5[facility] QoeqwekOSRSCKIGKZ6523-59-29 15:23:0011.6[facility] XkqdlitGOPSEFKLZW1160-63-08 15:23:74524Eipzckce PesxdspQHKUHF2870-75-02 15:23:26981Cxsuihdh HermannLIPIDS 2018-11-22 15:23:004.4[facility] OeikcwfMCVZYU7210-01-87 15:23:0095[facility] AkbnsjuQGJAEM3229-83-63 15:23:0028[facility] VwhtlyeCUUNNG8240-11-98 15:23:0073 Memorial RgkzzxsABYIED8035-50-10 15:23:71063Xrqjgsgx HermannSPECIAL CHEMISTRY 2018-11-22 15:23:007.1[facility] HermannSPECIAL WRDXISYSA1721-46-88 15:23:000.6 [facility] HermannSPECIAL MSYXCJVHL8127-61-32 15:23:0013.4[facility] HermannSPECIAL XSJSSZBHI1666-86-75 15:23:004.23[facility] HermannSPECIAL VXWFSADFG1027-33-16 15:23:0040.3[facility] HermannSPECIAL TVVKAPOTW2821-43-33 15:23:006.5[facility] HermannSPECIAL NMEMOQCNI3529-52-97 15:23:37502Wacqioci HermannSPECIAL CHEMISTRY 2018-11-22 15:23:004.6[facility] HermannSPECIAL ENVLPJWHZ5203-33-37 15:23:0030 [facility] HermannSPECIAL YHCEUXEAQ6962-31-92 15:23:001.8[facility] HermannSPECIAL GTVOSWCWJ0259-62-83 15:23:006.5[facility] HermannSPECIAL UNZJGSCYR9951-55-30 15:23:009.4[facility] HermannSPECIAL AYFQXCKMB5899-64-54 15:23:004.2[facility] HermannSPECIAL [id number] 15:23:0033[facility] HermannSPECIAL CHEMISTRY 2018-11-22 15:23:0016[facility] HermannSPECIAL HTYZCMFGD1546-17-80 15:23:0020 [facility] HermannSPECIAL OZULEFMXK8268-33-09 15:23:002.3[facility] HermannSPECIAL ZRWENKBGZ6341-88-15 15:23:000.5[facility] HermannSPECIAL JLCJAJEQN0062-15-49 15:23:001.0[facility] HermannSPECIAL GWCUVNNYG8242-08-17 15:23:007[facility] Jonn SPECIAL JFMYVDZBU8592-18-96 15:23:60775Awoxfjta HermannSPECIAL CHEMISTRY 2018-11-22 15:23:00 Test Item Value Reference Range Interpretation Comments MCH (test code = MCH) 31.7 pg 27.0-33.0 [facility] HermannSPECIAL [id number] 15:23:0033.3[facility] HermannSPECIAL KNKXVHVME4816-00-65 15:23:0095.3[facility] HermannSPECIAL FKRNXPAFA3589-19-88 15:23:0012.5[facility] HermannSPECIAL XJGIOFXFX9887-19-50 15:23:0011.6[facility] HermannSPECIAL GRJKGYYFB5003-80-91 15:23:97100Qcnqrcpn HermannSPECIAL CHEMISTRY 2018-11-22 15:23:001.62[facility] HermannSPECIAL RWUZLEPKV9286-93-20 15:23:0023 [facility]annSPECIAL KUJTIFGBU2891-33-05 15:23:0043[facility] HermannSPECIAL XLUTUGKBD8623-15-46 15:23:20729Sfgqteva HermannSPECIAL CVMSSBREZ5514-13-38 15:23:0014[facility] HermannSPECIAL UQWHLZWBB8887-49-31 15:23:0050[facility] Jonn SPECIAL [id number] 15:23:27133Knwvrqxg HermannURINE FEDH5565-42-08 15:23:001.0[facility] HermannURINE ZJNU3637-34-03 15:23:007[facility] HermannURINE UAJK8339-90-83 15:23:02810Alacqohp HermannCHEM FWWFF9913-97-76 14:36:003.1 [facility] HermannCHEM UUDAZ8277-10-53 14:36:0030Mem[facility] HermannCHEM PANEL 2018-03-26 14:36:000.5[facility] HermannCHEM [id number] 14:36:0015Memorial HermannCHEM PCYTL7186-19-45 14:36:0020Mem[facility] HermannCHEM GDXVT9934-81-52 14:36:001.9[facility] HermannCHEM ZDGQS7393-09-30 14:36:0061[facility] HermannCHEM VDMAW2587-56-42 14:36:001.23[facility] HermannCHEM GKXYE5910-15-16 14:36:004.1 [facility] HermannCHEM [id number] 14:36:006.3[facility] HermannCHEM PANEL 2018-03-26 14:36:009.5[facility] HermannCHEM BYQCW7472-42-73 14:36:0027Mem[facility] HermannCHEM YCNJQ9981-13-33 14:36:002.2[facility] HermannCHEM VPRGS8279-75-92 14:36:42199Mgtxfgzh HermannCHEM KHUUE9409-83-78 14:36:0070[facility] HermannCHEM OLLFG2858-88-24 14:36:004.2[facility] HermannCHEM CTBZG5350-04-14 14:36:0017 [facility] HermannCHEM RMNLY7961-39-33 14:36:33510Wxeajuqi HermannCHEM PANEL 2018-03-26 14:36:88737Xueunvkq HermannSPECIAL FAHMSAIWM5368-48-47 14:36:007.6 [facility] [place]
--- OUTSIDE RECORDS SUMMARY | 2020-11-08 08:08 | XMS REPORT ---
:1950 Author Organization [facility] Address [address] [place] [address] Care Team Providers Name Role Phone Jayant Montejo Unavailable [phone] PROBLEMS Type Condition ICD9-CM [id number] Onset Condition SNOMED Code Notes Code Code Dates Status Problem Bilateral N20.0 Active 97217030 nephrolithiasis Problem Ureterolithiasis N20.1 Active 30940145 Problem Pain in joint M25.572 Active 646180219 involving left ankle and foot Problem Kidney stone N20.0 Active 23914647 ALLERGIES Allergen (clinical drug Drug/Non Drug Allergy Reaction Allergy Type Onset Date Status ingredient) documented on EMR andrea Clarke([facility] Unknown Drug Allergy Active Code:[address]-26) ENCOUNTERS from 1950 to 2020-11-07 Encounter Location Date Provider Diagnosis [place] [address] [facility] Oct, Jayant Montejo Ureterolithi asis N20.1 Specialty/Urology [facility] [address] [place], [place] nephrolithiasis N20.0 [id number] IMMUNIZATIONS No Information SOCIAL HISTORY Tobacco Use: [...] No Information VITAL SIGNS Height 74 in 27 Steve, 2021 Weight 213.0 lbs Oct, Temperature 98.3 degrees Fahrenheit Oct, BMI 27.34 kg/m2 Oct, Oximetry 96 % Oct, Blood pressure systolic 104 mm Hg Oct, Blood pressure diastolic 62 mm Hg Oct, MEDICATIONS Medication SIG (Take, Route, Notes Start Date End Date Status Frequency, Duration) Pioglitazone HCl 15 MG 1 tablet Orally Once Active a day Allopurinol 300 MG 1 tablet Orally Once Active a day Docusate Calcium 240 MG 1 capsule as needed Active Orally Once a day Lantus 100 UNIT/ML as directed Activ e Subcutaneous Hydrochlorothiazide 25 MG 1 tablet in the Active morning Orally Once a day for 30 day(s) Rosuvastatin Calcium 40 MG 1 tablet Orally Once Active a day [place] 5-325 MG 1 tablet as needed Oct, Nov, Active Orally every 6 hrs for 5 days Metformin HCl 500 MG 1 tablet with a meal Active Orally Once a day for 30 day(s) Multi Vitamin Daily - 1 tablet Orally Once Active a day PROCEDURES No Information RESULTS No Results REASON FOR VISIT pre op -consult- kidney stone, SAW VALENTÍN MARTIN NP MEDICAL (GENERAL) HISTORY Type Description Date Medical [...] Treatment Notes Treatm ent Clinical Notes Oct, Ureterolithiasis (ICD-10 - N20.1) Oct, Bilateral nephrolithiasis (ICD-10 - N20.0) PLAN OF TREATMENT Medication Medication Name Sig Start Date Stop Date [place] 5-325 MG 1 tablet as needed Orally every 6 hrs for 5 2020Nov, days Next Appt Details Provider Name:Jayant Montejo, 11:00:00 AM, [address] [place] [address], [place], [address], Insurance Providers Payer Name Payer Payer Insured Patient Coverage Coverage End Address Phone Name Relationship to Start Date Dennys e Insured [facility] [phone] JASON KWAN [facility] [id number] [address]
[2020-11-08] MEDS ORDERED: CEFAZOLIN/SWI 1gm 1 GM/10 ML SYR ONE (10:08)
[2020-11-08] MEDS ORDERED: NA CHLORIDE 0.9% 1,000 ML ONE (10:09)
--- NOTE | 2020-11-08 10:09 | RAD REPORT ---
EXAM DESCRIPTION: Mi Lara (2 Views)11/08/2020 9:23 am CLINICAL HISTORY: Preop for a cystogram COMPARISON: None FINDINGS: The lungs appear clear of acute infiltrate. The heart is normal size IMPRESSION: No acute abnormalities displayed
--- NOTE | 2020-11-08 10:11 | RAD REPORT ---
EXAM DESCRIPTION: RAD - Abdomen 1 View (KUB) - 11/08/2020 9:22 am CLINICAL HISTORY: Abdomen pain. FINDINGS: The bowel gas pattern is unremarkable. 10 millimeter calculus proximal left ureter. Small bilateral renal calculi Calcifications in the pelvis probably phleboliths
[2020-11-08] MEDS ORDERED: propofoL 200 MG/20 ML VIAL IV ONE (10:37)
[2020-11-08] MEDS ORDERED: FENTANYL CITR 100 MCG/2 ML ONE (10:37)
[2020-11-08] MEDS ORDERED: dexAMETHasone 10 MG/ML VIAL ONE (10:37)
[2020-11-08] MEDS ORDERED: MIDAZOLAM HCL 2 MG/2 ML INJ ONE (10:37)
[2020-11-08] MEDS ORDERED: KETOROLAC 30 MG/ML INJ ONE (10:38)
[2020-11-08] MEDS ORDERED: ONDANSETRON 4 MG/2 ML VIAL ONE (10:38)
[2020-11-08] MEDS ORDERED: HYDROCODONE/APAP 5/325 MG TAB PO PRN (12:38)
[2020-11-08] MEDS ORDERED: PHENAZOPYRIDINE 100MG TAB PO ONE (12:38)
--- NOTE | 2020-11-08 12:48 | OP ---
Surgeon: FAVIOLA WESTBROOK Preoperative Diagnoses: 1. Left obstructive ureterolithiasis, 11 mm. 2. Acute kidney injury. Postoperative Diagnoses: 1. Left obstructive ureterolithiasis, 11 mm. 2. Acute kidney injury. 3. Papillary necrosis. Procedures Performed: 1. Cystoscopy. 2. Left retrograde pyelography. 3. Left ureteral stent placement. Indication For Procedure: Mr. Chapin presented to the Urology Clinic with a history of frequent recurrent nephrolithiasis, though the last episode was several years ago. He presented to the Emergency Department several days ago with an 11 mm proximal UPJ calculus on the left associated with a creatinine of 1.8. After confirming his baseline creatinine was indeed 1.3, the diagnosis of acute kidney injury was made and a recommendation for propped ureteral stenting was made. Procedure Note: The patient was consented in the preoperative holding area before being transferred to the operative suite, where general anesthesia was induced. He was given Ancef IV antimicrobial prophylaxis, and pneumo boots were provided for DVT prophylaxis. He was placed supine on the operative table and then in the lithotomy position, padded and secured to the table appropriately. The case was begun using a 22-Slovak cystoscope to attempt to enter the urethra, but there was some mild meatal stenosis. As a result, urethral sounds were required to dilate the meatus from 18-Slovak up to 26-Slovak. I was then able to pass the 22-Slovak cystoscope via the urethra and into the bladder with ease. The bladder was then surveyed in its entirety, and there were no mucosal lesions, or foreign bodies. At the opening of the bilateral ureteral orifices, there were particulate debris consistent with some calcific matter. As a result, the left ureteral orifice was cannulated using the tip of a 5-Slovak ureteral access catheter and a spot fluoroscopic image had already been obtained. That image revealed the presence of a radiopaque calculus in the region of the UPJ of the left kidney at the junction of L2-L3. I thus performed a retrograde pyelogram on the left side. Left retrograde pyelography: Using a 70:30 mixture of Omnipaque and saline, contrast was injected via the 5- Slovak ureteral access catheter and did propagate up the distal ureter into the mid and proximal ureter before encountering a point of obstruction. A slight degree of contrast did go beyond this point of obstruction, but an additional bolus of contrast was required in order to delineate the putative upper or mid pole of the kidney. I then passed a Sensor wire with ease beyond the point of obstruction and it did coil within the upper pole of the kidney. I was then able to pass over the Sensor wire a 6-Slovak by 26 cm double-J left ureteral stent with a coil observed fluoroscopically in the upper pole of the kidney and 1 cystoscopically within the bladder. The stone which was in the UPJ had apparently been dislodged at this point into the midpole calyx of the kidney. His bladder was then decompressed, and there was evidence of papillary necrosis emanating from the stent along with a degree of hematuria. Once his bladder was completely decompressed, the scope was removed, he was awakened from general anesthesia after being taken out of the lithotomy position. He was then transferred to a stretcher and then to the recovery room in good condition. Complications: None. Discharge Disposition: He will follow up in the Urology Clinic where we will discuss definitive ureteroscopic management of his radio-opaque calculus since the stone is [address] scan, which may not well fragment using ESWL. ANGELA/ALEYDA Voice ID: [id number] Report ID: [id number] ADRIANNA
--- NOTE | 2020-11-08 13:30 | RAD REPORT ---
EXAM DESCRIPTION: RAD - Urethrocystogrphy Retrograde - 11/08/2020 12:25 pm CLINICAL HISTORY: ICD N 20.0 FINDINGS: 6 fluoroscopic spot images obtained. Fluoroscopy time 0.07 minute minutes Left ureter was cannulated and contrast administered. Subsequently an ureteral stent was placed. Exam ination was performed by Dr Montejo
[2020-11-08 13:33] VITALS: BP 138/73; TEMP 97.5; O2SAT 99
--- NOTE | 2020-11-09 07:52 | EKG ---
Test Date: 2020-11-08 Test Time: 10:37:01 Translator And Interpreter: FRANK MEASUREMENT RESULTS: Intervals: Rate: 77 NE: 168 QRSD: 88 QT: 416 QTc: 470 [place]: P: 42 NE: 168 QRS: -39 T: 30 INTERPRETIVE STATEMENTS: Normal sinus rhythm Left axis deviation Minimal voltage criteria for LVH, may be normal variant Abnormal ECG Compared to ECG 04/30/2000 02:26:00 Left ventricular hypertrophy now present Myocardial infarct finding no longer present Electronically Signed On 11-09-20 07:49:36 BORING MACHINE OPERATOR PRODUCTION by [employer] Dai
== END 2020-11-08 13:40 | disposition home or self-care (01) ==
LOC: OR 07:59
PROVIDERS: ATTEND Urology
PROC: BT1FZZZ Fluoroscopy of Left Kidney, Ureter and Bladder (ICD-10-PCS; 2020-11-08)
PROC: 0T778DZ Dilation of Left Ureter with Intraluminal Device, Via Natural or Artificial Opening Endoscopic (ICD-10-PCS; principal; 2020-11-08 11:00)
DX: N20.1 Calculus of ureter (principal); N20.0 Calculus of kidney; Z20.822 Contact with and (suspected) exposure to COVID-19
CPT/HCPCS: 93005; 87088; 87086; 82947 ×2; 74018; 71046; 74450; 51610; 52332; 52005; U0002; J2704; J2250; J3010; J0690; J7030; J2405; J1100

== ENCOUNTER 2021-01-20 23:01 | Emergency (ER) | payer MEDICARE ==
--- OUTSIDE RECORDS SUMMARY | 2021-01-20 23:05 | XMS REPORT | Continuity of Care Document ---
:1950 Author Organization [facility] t Address [address] [place] [address] Care Team Providers Name Role Phone David Morataya Attending Clinician Halley Bentley Attending Clinician Stuart Chavez Attending Clinician Lab, Fam Pob I Attending Clinician Unavailable Pob1, Care Clinic Attending Clinician Unavailable Naomy Mc Attending Clinician Problems Condition Condition Condition Status Onset Resolution Last Treating Co mments Source Name Details Category Date Date Treatment Clinician Date N20.0 - Diagnosis Active 2020-12-05 Ky moria CALCULUS 2-23 11:08:00 l OF KIDNEY N20.0 - 00:01: Herm selin CALCULUS 00 OF KIDNEY Active 12/04/2020 [facility] [place] N20.1 - Diagnosis Active 2020-11-24 Ky moria CALCULUS 2-09 09:23:00 l OF URETER N20.1 - 00:01: Herm selin CALCULUS 00 OF URETER Active 11/20/2020 [facility] [place] M25.5 - Diagnosis Active 2014-102015-07-24 Me moria PAIN IN 0-13 15:05:00 l JOINT M25.5 - 00:01: Jonn PAIN IN 00 JOINT Active 07/24/2015 [facility] [place] Foot pain Problem Active 2015-06-17 Me moria (finding) 7- 08:19:30 l Foot 00:00: Jonn pain 00 (finding) Active 05/10/2015 Problem 06/17/2015 Data migrated from [facility] on 06/02/15. [facility] [place] 719.4 - Diagnosis Active 2015-05-10 Me moria PAIN IN 05-09 12:52:00 l JOINT 719.4 - 00:01: [place] PAIN IN 00 JOINT Active 05/09/2015 [facility] [place] Chronic Problem Active 2021-01-04 Jose walter kidney 07-04 01:21:31 l disease Chronic 00:00: Luis Angel n stage 3 kidney 00 (disorder) disease stage 3 (disorder) Active 07/04/2013 Problem 01/04/2021 Data migrated from [facility] on 03/10/15[facility] [place] Diabetes Problem Resolve 2015-08-24 Me moria mellitus d 05:22:40 l (disorder) Diabetes He rmann mellitus (disorder) Resolved Problem 08/24/2015 [facility] [place] Benign Problem Active 2021-01-04 Memor ia hypertensi 01:21:31 l on Benign [place] (disorder) hypertensi on (disorder) Active Problem 01/04/2021 Data migrated from [facility] on 03/10/15. [facility] [place] Gout Problem Active 2021-01-04 Memor ia (disorder) 01:21:31 l Gout Jonn (disorder) Active Problem 01/04/2021 Data migrated from [facility] on 03/10/15. [facility] [place] Mixed Problem Active 2021-01-04 Memor ia hyperlipid 01:21:31 l emia Mixed Jonn (disorder) hyperlipid emia (disorder) Active Problem 01/04/2021 [facility] [place] Type II Problem Active 2021-01-04 Jose walter diabetes 01:21:31 l mellitus Type II Teresa nn uncontroll diabetes ed mellitus (finding) uncontroll ed (finding) Active Problem 01/04/2021 [facility] [place] Diabetes Problem Active 2017-10-02 Mem oria mellitus 01:07:29 l type 2 Diabetes Luis Angel n (disorder) mellitus type 2 (disorder) Active Problem 10/02/2017 Data migrated from [facility] on 03/10/15. [facility] [place] Diabetic Problem Active 2015-06-17 Mem oria renal 08:19:30 l disease Diabetic Teresa nn (disorder) renal disease (disorder) Active Problem 06/17/2015 Data migrated from [employer] on 03/10/15. [facility] [place] Hyperchole Problem Active 2015-08-24 M emoria sterolemia 05:22:40 l (disorder) Luis Angel n Hyperchole sterolemia (disorder) Active Problem 08/24/2015 Data migrated from [employer] on 03/10/15. [facility] [place] Stress Problem Resolve 2021-01-04 2021-01-04 Memoria fracture d 05-10 01:21:31 01:21:31 l of Stress 00:00: Jonn metatarsal fracture 00 bone of (disorder) metatarsal bone (disorder) Resolved 05/10/2015 Problem 01/04/2021 Data migrated from [employer] on 06/02/15. [facility] [place] Testicular Problem Resolve 2021-01-04 2021-01-04 Memoria hypofuncti d 12-30 01:21:31 01:21:31 l on 00:00: Jonn (disorder) Testicular 00 hypofuncti on (disorder) Resolved 12/30/2012 Problem 01/04/2021 Data migrated from [employer] on 03/10/15. [facility] [place] Hyperkerat Problem Resolve 2015-08-24 2015-08-24 Memoria osis d 01-02 05:22:40 05:22:40 l (disorder) 00:00: Luis Angel n Hyperkerat 00 osis (disorder) Resolved 01/02/2014 Problem 08/24/2015 Data migrated from [employer] on 03/10/15. [facility] [place] Allergies, Adverse Reactions, Alerts Allergy Allergy Status Severity Reaction(s) Onset Inactive Treating Comm ents Source Name Type Date Date Clinician niacin<s niacin<s Active Memori a up>1</kerr up>1</kerr l p> p> [place] Niaspan Adverse Active Info Not [facility] Reaction Available [facility] Social History Smoking Status Start Date Stop Date Source Social History [facility] Medications Ordered Filled Start Stop Current Ordering Indication Dosage Frequency Signature Comments Components Source Medication Medication Date Date Medication? Clinician (SIG) Name Name non-formula Yes insulin Mem oria ry 3-22 pen l 18:13: needles [place] 00 for his soliqua, Refill(s) 0 rosuvastati Yes = 1 tab, Me moria n 40 mg 3-22 PO, Daily, l oral tablet 14:40: # 90 tab, H ermann 00 3 Refill(s), Pharmacy: [facility], 187.96, cm, 12/05/20 9:44:00 APPARATUS LINEMAN, Height, 95, kg, 12/05/20 9:44:00 APPARATUS LINEMAN, Weight pioglitazon Yes = 1 tab, Me moria e 15 mg 3-22 PO, Daily, l oral tablet 14:40: # 90 tab, H ermann 00 3 Refill(s), Pharmacy: [facility], 187.96, cm, 12/05/20 9:44:00 APPARATUS LINEMAN, Height, 95, kg, 12/05/20 9:44:00 APPARATUS LINEMAN, Weight Vantin 200 Yes 200 mg = 1 M emoria mg oral 2-11 tab, PO, l tablet 20:48: Q12H, X 10 Teresa nn 00 day, # 20 tab, 0 Refill(s), Pharmacy: [facility] #[id number], 187.96, cm, 11/20/20 9:56:00 APPARATUS LINEMAN, Height, 95, kg, 11/20/20 9:56:00 APPARATUS LINEMAN, Weight Soliqua Yes 0 Memoria 100/33 2-09 Refill(s) l 16:05: Jonn 00 3 ML Yes 0 Memoria Insulin 2-09 Refill(s) l Glargine 16:05: Jonn 100 UNT/ML 00 / Lixisenatid e 0.033 MG/ML Pen Injector [Soliqua] 3 ML 2019-10 Yes 40 units, Memoria Insulin 2-23 SUB-Q, l Glargine 17:57: Daily, [place] 100 UNT/ML 00 Inject / once Lixisenatid [...] [facility], 187.96, cm, 08/20/20 13:58:00 APPARATUS LINEMAN, Height, 92.273, kg, 08/20/20 13:58:00 APPARATUS LINEMAN, Weight allopurinol 2019-10 Yes = 1 tab, Me moria 300 mg oral 2-08 PO, Daily, l tablet 15:11: # 90 tab, Luis Angel n 00 3 Refill(s), Pharmacy: [facility], 187.96, cm, 08/20/20 13:58:00 APPARATUS LINEMAN, Height, 92.273, kg, 08/20/20 13:58:00 APPARATUS LINEMAN, Weight Metformin 2019-10 Yes = 1 tab, Jose walter hydrochlori 2-08 PO, BID, # l de 850 MG 15:11: 180 tab, 3 He rmann Oral Tablet 00 Refill(s), Pharmacy: [facility], 187.96, cm, 08/20/20 13:58:00 APPARATUS LINEMAN, Height, 92.273, kg, 08/20/20 13:58:00 APPARATUS LINEMAN, Weight perindopril 2019-10 Yes = 1 tab, Me moria 8 mg oral 2-08 PO, Daily, l tablet 15:11: # 90 tab, Luis Angel n 00 3 Refill(s), Pharmacy: [facility], 187.96, cm, 08/20/20 13:58:00 APPARATUS LINEMAN, Height, 92.273, kg, 08/20/20 13:58:00 APPARATUS LINEMAN, Weight 0.25 MG, Yes 0.5 mg, Memori a 0.5 MG Dose 6-09 SUB-Q, l 1.5 ML 16:35: Q7D, use Jonn semaglutide 00 after 1.34 MG/ML starter Pen kit, # 2 Injector mL, 5 [Ozempic] Refill(s), Pharmacy: [facility] #[id number] Azithromyci Yes See Memori a n 5 Day 31 Instructio l Dose Pack 17:23: ns, Take 2 He rmann 250 mg oral 00 tablets by tablet mouth the first day then 1 tablet by mouth days 2-5., X 5 day, # 6 tab, 0 Refill(s) benzonatate Yes 100 mg = 1 Memoria 100 MG Oral 31 cap, PO, l Capsule 17:23: TID, PRN [...] Teresa nn Insulin Pen 00 Daily, # [place]ard 29G 100 ea, 3 12.7mm=1/2 Refill(s), inch [...] 1 Refill(s), Pharmacy: [facility] rosuvastati 2018- Yes See Memori a n 40 mg 2-04 Instructio l oral tablet 20:43: ns, TAKE 1 Jonn 00 TABLET DAILY, # 90 tab, 3 [...] Pharmacy: [facility] Metformin Yes See Memoria hydrochlori 2-04 Instructio l de 850 MG 20:43: ns, TAKE 1 He rmann Oral Tablet 00 TABLET TWICE A DAY, # 180 tab, 1 Refill(s), Pharmacy: [facility] Colchicine Yes 0.6 mg = 1 M emoria 0.6 MG Oral 6-27 tab, PO, l Tablet 15:32: BID, PRN [place] 00 gout/joint pain, # 60 tab, 0 Refill(s), Pharmacy: [facility] [id number] [employer]Clear[employer] Solutionszon Yes 15 mg = 1 M emoria e 15 MG 3-26 tab, PO, l Oral Tablet 15:58: Daily, # He rmann [Actos] 29 30 tab, 0 Refill(s), Pharmacy: [facility] [id number] [employer] No 15 mg = 1 M emoria e 15 MG 3-26 tab, PO, l Oral Tablet 15:57: Daily, # He rmann [Actos] 00 90 tab, 1 Refill(s), Pharmacy: [facility] Maria Dolores Whitten Yes Carlos as [facility] De Dios directed [facility] Hydrochloro Hydrochloro Yes Carlos [address] [facility] thiazide thiazide De Dios in the [place] es - morning [facility] Metformin Metformin Yes Carlos [address] [facility] HCl HCl De [facility] with a [facility] Vital Signs Vital Name Observation Time Observation Value Comments Source Height 2020-12-31 18:02:00 187.96 cm Torie Lunsford Weight 2020-12-31 18:02:00 Torie Lunsford BMI Calculated 2020-12-31 18:02:00 Chidi Ruth Systolic (mm Hg) 2020-12-31 18:02:00 Jose Lunsford Diastolic (mm Hg) 2020-12-31 18:02:00 Bronson Lunsford Heart Rate 2020-12-31 18:02:00 [facility] Jonn Temperature Oral (F) 2020-12-31 18:02:00 98.0 F [facility] [place] Systolic (mm Hg) 2020-12-05 15:44:00 Jose rial Jonn Diastolic (mm Hg) 2020-12-05 15:44:00 Mem orial [place] Heart Rate 2020-12-05 15:44:00 [facility] Jonn Height 2020-12-05 15:44:00 187.96 cm [facility] [place] Weight 2020-12-05 15:44:00 [facility] [place] BMI Calculated 2020-12-05 15:44:00 Memori al [place] Systolic (mm Hg) 2020-11-20 15:56:00 Jose rial [place] Diastolic (mm Hg) 2020-11-20 15:56:00 Mem orial Jonn Heart Rate 2020-11-20 15:56:00 [facility] Jonn Height 2020-11-20 15:56:00 187.96 cm [facility] Jonn Weight 2020-11-20 15:56:00 [facility] [place] BMI Calculated 2020-11-20 15:56:00 Memori al [place] Systolic (mm Hg) 2020-10-03 17:21:00 Jose rial Jonn Diastolic (mm Hg) 2020-10-03 17:21:00 Mem orial [place] Heart Rate 2020-10-03 17:21:00 [facility] [place] Temperature Oral (F) 2020-10-03 17:21:00 97.8 F [facility] Jonn Height 2020-10-03 17:21:00 187.96 cm [facility] [place] Heart Rate 2020-08-20 20:37:00 [facility] [place] Systolic (mm Hg) 2020-08-20 19:58:00 Jose rial [place] Diastolic (mm Hg) 2020-08-20 19:58:00 Mem orial Jonn Heart Rate 2020-08-20 19:58:00 [facility] [place] Temperature Oral (F) 2020-08-20 19:58:00 97.6 F [facility] [place] Height 2020-08-20 19:58:00 187.96 cm [facility] Jonn Weight 2020-08-20 19:58:00 [facility] [place] BMI Calculated 2020-08-20 19:58:00 Memori al [place] Systolic (mm Hg) 2020-03-20 16:05:00 Jose rial [place] Diastolic (mm Hg) 2020-03-20 16:05:00 Mem orial [place] Heart Rate 2020-03-20 16:05:00 [facility] Jonn Temperature Oral (F) 2020-03-20 16:05:00 97.7 F [facility] Jonn Height 2020-03-20 16:05:00 187.96 cm [facility] [place] Weight 2020-03-20 16:05:00 [facility] [place] BMI Calculated 2020-03-20 16:05:00 Memori al [place] Systolic (mm Hg) 2019-12-15 17:19:00 Jose rial [place] Diastolic (mm Hg) 2019-12-15 17:19:00 Mem orial [place] Heart Rate 2019-12-15 17:19:00 [facility] [place] Temperature Oral (F) 2019-12-15 17:19:00 97.4 F [facility] [place] Height 2019-12-15 17:19:00 187.96 cm [facility] Jonn Weight 2019-12-15 17:19:00 [facility] [place] BMI Calculated 2019-12-15 17:19:00 Memori al [place] Systolic (mm Hg) 2019-11-11 16:54:00 Jose rial Jonn Diastolic (mm Hg) 2019-11-11 16:54:00 Mem orial [place] Heart Rate 2019-11-11 16:54:00 [facility] [place] Temperature Oral (F) 2019-11-11 16:54:00 97.7 F [facility] [place] Height 2019-11-11 16:54:00 187.96 cm [facility] Weight 2019-11-11 16:54:00 [facility] [place] BMI Calculated 2019-11-11 16:54:00 Memori al [place] Systolic (mm Hg) 2019-08-04 16:02:00 Jose rial Jonn Diastolic (mm Hg) 2019-08-04 16:02:00 Mem orial [place] Heart Rate 2019-08-04 16:02:00 [facility] [place] Temperature Oral (F) 2019-08-04 16:02:00 97.5 F [facility] [place] Height 2019-08-04 16:02:00 185.42 cm [facility] Weight 2019-08-04 16:02:00 [facility] [place] BMI Calculated 2019-08-04 16:02:00 Memori al [place] BMI Calculated 2019-03-22 16:02:00 Memori al [place] Weight 2019-03-22 16:02:00 [facility] [place] Height 2019-03-22 16:02:00 185.42 cm [facility] [place] Heart Rate 2019-03-22 16:02:00 [facility] [place] Temperature Oral (F) 2019-03-22 16:02:00 97.6 F [facility] [place] Systolic (mm Hg) 2019-03-22 16:02:00 Jose rial [place] Diastolic (mm Hg) 2019-03-22 16:02:00 Mem orial [place] Height 2018-12-09 17:20:00 185.42 cm [facility] [place] BMI Calculated 2018-12-09 17:20:00 Memori al [place] Weight 2018-12-09 17:20:00 [facility] [place] Temperature Oral (F) 2018-12-09 17:20:00 97.8 F [facility] [place] Heart Rate 2018-12-09 17:20:00 [facility] [place] Systolic (mm Hg) 2018-12-09 17:20:00 Jose rial [place] Diastolic (mm Hg) 2018-12-09 17:20:00 Mem orial [place]n BMI Calculated 2018-08-04 16:15:00 Memori al [place] Weight 2018-08-04 16:15:00 [facility] [place] Height 2018-08-04 16:15:00 185.42 cm [facility] [place] Heart Rate 2018-08-04 16:15:00 [facility] [place] Temperature Oral (F) 2018-08-04 16:15:00 98.0 F [facility] [place] Systolic (mm Hg) 2018-08-04 16:15:00 Jose rial Jonn Diastolic (mm Hg) 2018-08-04 16:15:00 Mem orial [place] Height 2018-04-07 15:06:00 185.42 cm [facility] Jonn Weight 2018-04-07 15:06:00 [facility] [place] BMI Calculated 2018-04-07 15:06:00 Memori al [place] Heart Rate 2018-04-07 15:06:00 [facility] [place] Temperature Oral (F) 2018-04-07 15:06:00 97.6 F [facility] [place] Systolic (mm Hg) 2018-04-07 15:06:00 Jose rial [place] Diastolic (mm Hg) 2018-04-07 15:06:00 Mem orial Jonn Weight 2018-01-04 15:26:00 [facility] [place] BMI Calculated 2018-01-04 15:26:00 Memori al [place] Height 2018-01-04 15:26:00 185.42 cm [facility] [place] Systolic (mm Hg) 2018-01-04 15:26:00 Jose rial [place] Diastolic (mm Hg) 2018-01-04 15:26:00 Mem orial Jonn Heart Rate 2018-01-04 15:26:00 [facility] [place] Temperature Oral (F) 2018-01-04 15:26:00 97.1 F [facility] [place] Height 2017-09-29 17:17:00 185.42 cm [facility] [place] BMI Calculated 2017-09-29 17:17:00 Memori al [place] Weight 2017-09-29 17:17:00 [facility] [place] Heart Rate 2017-09-29 17:17:00 [facility] [place] Temperature Oral (F) 2017-09-29 17:17:00 98.0 F [facility] [place] Systolic (mm Hg) 2017-09-29 17:17:00 Jose rial [place] Diastolic (mm Hg) 2017-09-29 17:17:00 Mem orial Jon[place] Procedures Procedure Date / Time Performed Performing Clinician Omar newman Diabetic retinal eye 2020-12-24 05:00:00 Memoria l [place] exam<sup>1</sup> Procedure<sup>2</sup> 2020-12-03 06:00:00 Chidi mondragon [place] Measurement of 2020-11-20 16:16:00 Torie martins post-voiding residual urine and/or bladder capacity by ultrasound, non-imaging Diabetic retinal eye 2019-10-12 00:00:00 Memoria l [place] exam<sup>3</sup> Colonoscopy<sup>4</sup> 2012-06-12 05:00:00 Jose yuniel [place] [facility] Start End Encounter Admission Attending Care Care Encounter Source Date/Time Date/Time Type Type Clinicians Facility Department ID 2020-12-31 2021-01-01 Outpatient [facility] [id number] 09:15:41 23:59:59 12 2020-12-31 2020-12-31 Outpatient Rafia [facility] [id number] 13:00:00 23:59:59 Aniyah 29 David 2020-12-25 2020-12-25 Outpatient [facility] [id number] 08:45:00 08:45:00 30 2020-12-05 2020-12-05 Outpatient Mc, [facility] [id number] 10:15:00 23:59:59 Bruna Rowley 32 2020-12-05 2020-12-05 Outpatient Scott MH29 MH29 [id number] 10:58:00 23:59:00 Marty 05 Stuart 2020-11-24 2020-11-24 Outpatient Mc, MH29 MH29 [id number] 09:13:00 23:59:00 Bruna Rowley 04 2020-11-22 2020-11-23 Outpatient [facility] [id number] 14:48:03 14:48:03 14 2020-11-20 2020-11-20 Outpatient Scott [facility] [id number] 10:30:00 23:59:59 Marty 31 Stuart 2020-11-15 2020-11-15 Outpatient [facility] [id number] [facility] 2020-11-09 2020-11-10 Outpatient [facility] [id number] 08:29:32 23:59:59 11 2020-11-07 2020-11-07 Outpatient [facility] [id number] [facility] 2020-11-05 2020-11-06 Outpatient [facility] [id number] 10:28:48 23:59:59 10 2020-11-06 2020-11-06 Outpatient [facility]MLC [facility] [id number] [facility] 2020-10-03 2020-10-03 Outpatient Rafia [facility] [id number] 11:15:00 23:59:59 Aniyah 27 David 2020-09-18 2020-09-19 Outpatient [facility] [id number] 08:46:06 23:59:59 09 2020-09-12 2020-09-13 Outpatient [facility] [id number] 08:15:27 23:59:59 08 2020-08-20 2020-08-20 Outpatient REBECCA MoratayaMG [id number] 14:15:00 23:59:59 Aniyah Cheney David 2020-06-11 2020-06-12 Outpatient [facility] [id number] 14:21:15 23:59:59 07 2020-04-21 2020-04-21 Laboratory Lab, [place] [id number] 13:10:29 13:30:29 Only Fam Pob [facility] [id number] [place] [id number] Professio [phone] [place] [address] [address] 2020-04-21 2020-04-21 Urgent Pob1, Acute [facility] [id number] 12:20:00 12:40:00 [facility] [id number] [place] [id number] Professio [phone] [place] [address] [address] 2020-03-20 2020-03-20 Outpatient REBECCA Morataya [facility] [id number] 11:00:00 23:59:59 Aniyah 24 David 2020-03-02 2020-03-03 Outpatient [facility] [id number] 13:13:30 23:59:59 06 2019-12-15 2019-12-15 Outpatient REBECCA MoratayaMG [id number] 11:15:00 23:59:59 Aniyah 22 David 2019-12-13 2019-12-14 Outpatient [facility] [id number] 11:06:33 23:59:59 05 2019-11-11 2019-11-11 Outpatient REBECCA Morataya [facility] [id number] 10:30:00 23:59:59 Aniyah 23 Hernandez 2019-08-04 2019-08-04 Outpatient REBECCA Morataya [facility] [id number] 11:15:00 23:59:59 Aniyah 20 David 2019-07-21 2019-07-21 Outpatient [facility] [id number] 09:30:00 09:30:00 21 2019-03-22 2019-03-22 Outpatient REBECCA Morataya MG [id number] 11:15:00 23:59:59 Aniyah 19 David 2018-12-09 2018-12-09 Outpatient REBECCA Morataya MG [id number] 11:15:00 23:59:59 Aniyah 18 Hernandez 2018-08-04 2018-08-04 Outpatient REBECCA Morataya MG [id number] 11:15:00 23:59:59 Aniyah 16 Hernandez 2018-07-28 2018-07-28 Outpatient MG MG [id number] 08:30:00 08:30:00 17 2018-05-03 2018-05-03 [place] [facility] [id number] [facility] [address] 08:30:00 08:30:00 [facility] 2018-04-07 2018-04-07 Outpatient REBECCA Morataya [facility] [id number] 10:00:00 23:59:59 Aniyah 15 Hernandez 2018-01-04 2018-01-04 Outpatient REBECCA Morataya MG [id number] 10:30:00 23:59:59 Aniyah 14 Hernandez 2017-12-31 2017-12-31 Outpatient REBECCA Morataya MG [id number] 11:00:00 11:00:00 Aniyah 12 Hernandez 2017-12-22 2017-12-22 [id number] 08:30:00 08:30:00 13 2017-09-29 2017-09-29 Outpatient REBECCA Morataya MG [id number] 11:15:00 23:59:59 Aniyah 11 Hernandez 2015-08-21 2015-08-21 Outpatient Alexandro, MH29 MH29 [id number] 13:30:00 23:59:00 Jani Moralez 2015-07-24 2015-07-24 Outpatient Alexandro, MH29 MH29 [id number] 14:41:00 23:59:00 Jani Moralez 2015-06-14 2015-06-14 Outpatient Alexandro, MH29 MH29 [id number] 14:49:00 23:59:00 Jani Moralez 2015-05-10 2015-05-10 Outpatient Alexandro, SIMONE29 [id number] 12:41:00 23:59:00 Jani Moralez Results Test Description Test Time Test Comments Results Result Comments Source CHEM PANEL 2020-11-20 19 [facility] nn 17:35:00 CHEM PANEL 2020-11-20 1.71 [facility] Teresa nn 17:35:00 CHEM PANEL 2020-11-20 40 [facility] Teresa nn 17:35:00 CHEM PANEL 2020-11-20 46 [facility] Teresa nn 17:35:00 CHEM PANEL 2020-11-20 11 [facility] Teresa nn 17:35:00 CHEM PANEL 2020-11-20 140 [facility] Teresa nn 17:35:00 CHEM PANEL 2020-11-20 4.5 [facility] Teresa nn 17:35:00 CHEM PANEL 2020-11-20 104 [facility] Teresa nn 17:35:00 CHEM PANEL 2020-11-20 27 [facility] Teresa nn 17:35:00 CHEM PANEL 2020-11-20 9.5 [facility] Teresa nn 17:35:00 ELECTROLYTES 2018-11-22 100 [facility] Her martins 15:23:00 ELECTROLYTES 2018-11-22 4.6 [facility] Her martins 15:23:00 ELECTROLYTES 2018-11-22 30 [facility] Her martins 15:23:00 ELECTROLYTES 2018-11-22 1.8 [facility] Her martins 15:23:00 ELECTROLYTES 2018-11-22 6.5 [facility] Her martins 15:23:00 ELECTROLYTES 2018-11-22 9.4 [facility] Her martins 15:23:00 ELECTROLYTES 2018-11-22 4.2 [facility] Her martins 15:23:00 ELECTROLYTES 2018-11-22 33 [facility] Her martins 15:23:00 ELECTROLYTES 2018-11-22 16 [facility] Her amrtins 15:23:00 ELECTROLYTES 2018-11-22 20 [facility] Her martins [...] code = MCH) 31.7 pg 27.0-33.0 [facility] [id number] 15:23:0033.3[facility] HermannHEMATOLOGY 2018-11-22 15:23:0095.3[facility] ArgqmkgXHJXTXXHDS2636-13-43 15:23:0012.5[facility] SagunyhTAAXKFFTIQ4995-73-51 15:23:0011.6[facility] NzxcgyxFVXWMYPYQJ9091-22-86 15:23:58596Lyksanxb GsqymjxSZIKWW5005-18-94 15:23:80657Wkhrvwvu HermannLIPIDS 2018-11-22 15:23:004.4[facility] HeurglaJSYUEN8887-81-43 15:23:0095[facility] FjcsiauPXIWTK3499-17-67 15:23:0028[facility] DnpgjpwDVTXGD9997-26-79 15:23:0073 Memorial YqnugyyZGKCJU2651-74-62 15:23:07903Unieetgy HermannSPECIAL CHEMISTRY 2018-11-22 15:23:007.1[facility] HermannSPECIAL HKJPLFMET5656-95-44 15:23:000.6 [facility]annSPECIAL [id number] 15:23:0013.4[facility]annSPECIAL VYUDSKBNS3992-96-57 15:23:004.23[facility] HermannSPECIAL EVWDNQVVX4544-98-99 15:23:0040.3[facility] HermannSPECIAL LBMVMIYIO4332-96-24 15:23:006.5[facility] HermannSPECIAL [id number] 15:23:98864Qvzofgbk HermannSPECIAL CHEMISTRY 2018-11-22 15:23:004.6[facility] HermannSPECIAL [id number] 15:23:0030 [facility]annSPECIAL CWJKNXGBZ3612-26-80 15:23:001.8[facility] HermannSPECIAL ZBBQXNKQV0876-59-77 15:23:006.5[facility] HermannSPECIAL IWQXSMYVQ0624-02-51 15:23:009.4[facility] HermannSPECIAL [id number] 15:23:004.2[facility] HermannSPECIAL [id number] 15:23:0033[facility]annSPECIAL CHEMISTRY 2018-11-22 15:23:0016[facility] HermannSPECIAL KOGBMPKVU2929-10-93 15:23:0020 [facility]annSPECIAL SRZVBSBQF3714-38-89 15:23:002.3[facility] HermannSPECIAL OSNBCVELR3477-36-55 15:23:000.5[facility] HermannSPECIAL EJEBKQMMF6976-59-40 15:23:001.0[facility]annSPECIAL [id number] 15:23:007[facility] Jonn SPECIAL FNYGQOHSX5974-12-25 15:23:54200Vuazvzig HermannSPECIAL CHEMISTRY 2018-11-22 15:23:00 Test Item Value Reference Range Interpretation Comments MCH (test code = MCH) 31.7 pg 27.0-33.0 [facility]annSPECIAL [id number] 15:23:0033.3[facility] HermannSPECIAL [id number] 15:23:0095.3[facility] HermannSPECIAL [id number] 15:23:0012.5[facility]annSPECIAL CEVKXIBLZ8023-22-39 15:23:0011.6[facility]annSPECIAL CVELQMBHF0629-71-93 15:23:03453Jlsbyqoi HermannSPECIAL CHEMISTRY 2018-11-22 15:23:001.62[facility]annSPECIAL LAUAITUTM9561-72-20 15:23:0023 [facility] GYZVBJBGP8034-61-13 15:23:0043[facility]annSPECIAL UOZTWIKUI4768-68-60 15:23:38722Dttfnjcz HermannSPECIAL KXDCAZEUL5572-41-90 15:23:0014[facility]annSPECIAL YGUAWHGOK6223-13-48 15:23:0050[facility] SPECIAL YUOEZUENE7876-90-51 15:23:46871Zlvydthj HermannURINE YZZF5012-04-45 15:23:001.0[facility]annURINE [id number] 15:23:007[facility] HermannURINE BIVE3963-86-32 15:23:13303Mnievdwj HermannCHEM XZSRM8104-51-75 14:36:003.1 [facility]annCHEM BNBPX9229-79-28 14:36:0030[facility] HermannCHEM PANEL 2018-03-26 14:36:000.5[facility] HermannCHEM WKOUB4933-63-03 14:36:0015[facility]annCHEM GBJGE7797-29-11 14:36:0020[facility]annCHEM [id number] 14:36:001.9[facility] HermannCHEM [id number] 14:36:0061[facility]annCHEM XOJCV4339-37-74 14:36:001.23[facility]annCHEM UJAJF9836-95-27 14:36:004.1 [facility]annCHEM TDEAS5843-55-81 14:36:006.3[facility] HermannCHEM PANEL 2018-03-26 14:36:009.5[facility] HermannCHEM MMYQI6015-18-18 14:36:0027[facility]annCHEM DGMQL3912-20-10 14:36:002.2[facility]annCHEM TPHUI9142-32-47 14:36:97510Edvvsiqz HermannCHEM VJGHN3600-22-06 14:36:0070[facility]annCHEM WJWWQ1438-19-89 14:36:004.2[facility]annCHEM RYXGR0737-21-97 14:36:0017 [facility]annCHEM RKFSJ7023-25-52 [id number] [place] PAN[place] 2018-03-26 [id number] [facility] [id number] 14:36:[id number] [facility]
[2021-01-21 00:21] LABS: Absolute Lymphocytes (CBC) 1.2 K/uL (0.7-4.9); Basophils % 0.3 % (0-1.3); Hematocrit 39.5 % (39.6-49.0); Lymphocytes % 17.1 % (15.3-44.8); MPV 8.9 fL (7.6-11.3); RBC Red Blood Cell Count 4.22 M/uL (4.33-5.43)
[2021-01-21] MEDS ORDERED: ONDANSETRON 4 MG/2 ML VIAL ONE (00:28)
[2021-01-21] MEDS ORDERED: HYDROMORPHONE HCL 1 MG/ML INJ ONE ×2 (00:28→03:01)
[2021-01-21 00:32] LABS: Albumin 3.7 g/dL (3.4-5.0); Bilirubin Direct 0.2 mg/dL (0-0.2); Bilirubin Total 0.5 mg/dL (0.2-1.0); Potassium 3.5 mmol/L (3.5-5.1)
[2021-01-21] MEDS ORDERED: NA CHLORIDE 0.9% 1,000 ML ONE (01:17)
--- NOTE | 2021-01-21 01:34 | ER ---
Nurse's Notes [facility] Name: Johnathon Chapin Age: 70 yrs Sex: Male : 1950 Arrival Date: 01/20/2021 Time: 23:06 Bed 20 Private MD: Diagnosis: Calculus of kidney and ureter-right Presentation: 01/20 23:13 Chief complaint: Patient states: he thinks he is having a kidney stone he has had them bb in the past he started having sudden pain about an hour ago. Coronavirus screen: At this time, the client does not indicate any symptoms associated with coronavirus-19. Ebola Screen: No symptoms or risks identified at this time. Initial Sepsis Screen: Does the patient meet any 2 criteria? No. Patient's initial sepsis screen is negative. Does the patient have a suspected source of infection? No. Patient's initial sepsis screen is negative. Risk Assessment: Do you want to hurt yourself or someone else? Patient reports no desire to harm self or others. Onset of symptoms was January 20, 2021. 23:13 Method Of Arrival: Ambulatory bb 23:13 Acuity: JENNIFER 3 bb Triage Assessment: 23:18 General: Appears uncomfortable, Behavior is cooperative, anxious. Pain: Complains of bb pain in right side Pain currently is 8 out of 10 on a pain scale. Neuro: Level of Consciousness is awake, alert, obeys commands, Oriented to person, place, time, situation. Cardiovascular: No deficits noted. Respiratory: Respiratory effort is even, unlabored, Respiratory pattern is regular, symmetrical. GI: No signs and/or symptoms were reported involving the gastrointestinal system. : No signs and/or symptoms were reported regarding the genitourinary system. Derm: No signs and/or symptoms reported regarding the dermatologic system. Musculoskeletal: Circulation, motion, and sensation intact. Historical: - Allergies: 23:18 Niaspan; bb - Home Meds: 23:18 Allopurinol Oral [Active]; Hydrochlorothiazide Oral [Active]; Metformin Oral [Active]; bb pioglitazone 15 mg Oral tab [Active]; rosuvastatin Oral [Active]; solliqua [Active]; - PMHx: 23:18 Diabetes - IDDM; Gout; Hyperlipidemia; Hypertension; bb - Immunization history:: Adult Immunizations up to date. - Social history:: Smoking status: Patient denies any tobacco usage or history of. Screenin/12 00:10 Abuse screen: Denies threats or abuse. Denies injuries from another. Nutritional sf screening: No deficits noted. Tuberculosis screening: No symptoms or risk factors identified. Never had TB. Possible symptoms: None Risk factors: None. Fall Risk None identified. No fall in past 12 months (0 pts). No secondary diagnosis (0 pts). IV access (20 points). Ambulatory Aid- None/Bed Rest/Nurse Assist (0 pts). Gait- Normal/Bed Rest/Wheelchair (0 pts) Mental Status- Oriented to own ability (0 pts). Total Champion Fall Scale indicates No Risk (0-24 pts). Assessment: 00:10 General: Appears in no apparent distress. comfortable, Behavior is calm, cooperative. sf Pain: Complains of pain in FLANK. Neuro: No deficits noted. Level of Consciousness is awake, alert, Oriented to person, place, time, situation. Cardiovascular: No deficits noted. Capillary refill < 3 seconds Patient's skin is warm and dry. Respiratory: No deficits noted. Airway is patent Respiratory effort is even, unlabored, Respiratory pattern is regular, symmetrical. GI: Abdomen is non-distended, Reports nausea, vomiting. : CVA tenderness noted Reports Flank pain. EENT: No deficits noted. No signs and/or symptoms were reported regarding the EENT system. Derm: No deficits noted. No signs and/or symptoms reported regarding the dermatologic system. Musculoskeletal: No deficits noted. No signs and/or symptoms reported regarding the musculoskeletal system. 01:00 Reassessment: Patient appears in no apparent distress at this time. Patient and/or sf family updated on plan of care and expected duration. Pain level reassessed. Patient is alert, oriented x 3, equal unlabored respirations, skin warm/dry/pink. Pain is decreased, still not able to give urine Patient states feeling better. Patient states symptoms have improved. 02:22 Reassessment: Patient appears in no apparent distress at this time. Patient and/or sf family updated on plan of care and expected duration. Pain level reassessed. Patient is alert, oriented x 3, equal unlabored respirations, skin warm/dry/pink. Reports pain is starting to increase Patient states feeling better. Patient states symptoms have improved. 03:00 Reassessment: SpO2 noted to drop to 86% while patient falling asleep, awoke patient and sf had him deep breathe, SpO2 quickly returned to 96% on room air, advised patient to stay awake to increase SpO2. 03:05 Reassessment: Patient sleeping, SpO2 noted to be 88%, awoke patient again and sf encouraged him to stay awake and maintain good oxygenation. 03:16 Reassessment: Patient falling asleep again, reminded to keep oxygenation up before he sf can be discharged. 03:47 Reassessment: Patient appears in no apparent distress at this time. Patient and/or sf family updated on plan of care and expected duration. Pain level reassessed. Patient is alert, oriented x 3, equal unlabored respirations, skin warm/dry/pink. Patient able to maintain oxygenation above 95% for the last 25 minutes, ready for discharge Patient states feeling better. Patient states symptoms have improved. Vital Signs: 01/20 23:13 BP 169 / 86; Pulse 77; Resp 18 S; Temp 98(O); Pulse Ox 100% on R/A; Weight 95.25 kg bb (R); Height 6 ft. 2 in. (187.96 cm) (R); Pain 8/10; 04/12 02:16 BP 170 / 90; Pulse 78; Resp 16; Pulse Ox 98% ; sf 03:00 BP 153 / 76; Pulse 78; Resp 16; Pulse Ox 89% on R/A; sf 03:30 BP 129 / 86; Pulse 85; Resp 16; Pulse Ox 99% ; sf 0411 23:13 Body Mass Index 26.96 (95.25 kg, 187.96 cm) bb ED Course: 01/20 23:06 Patient arrived in ED. bp1 23:16 Triage completed. bb 23:18 Arm band placed on Patient placed in waiting room, Patient notified of wait time. bb 23:29 Brandon Tafoya PA is PHCP. cp 23:29 Dylan Adams MD is Attending Physician. cp 23:51 Amarjit Medina, MOOSE is Primary Nurse. sf 01/21 00:01 Bed in low position. Call light in reach. Side rails up X 1. Verbal reassurance given. jp3 Pulse ox on. NIBP on. 00:01 Initial lab(s) drawn, by me, sent to lab. Inserted saline lock: 20 gauge in right jp3 antecubital area, using aseptic technique. Blood collected. Patient maintains SpO2 saturation greater than 95% on room air. 00:07 Lipase Sent. sf 00:07 Hepatic Function Sent. sf 00:07 CBC with Diff Sent. sf 00:07 Basic Metabolic Panel Sent. sf 00:14 CT Stone Protocol Sent. sf 00:49 CT Stone Protocol In Process Unspecified. EDMS 01:31 Jani Kilgore MD is Referral Physician. cp 03:53 No provider procedures requiring assistance completed. IV discontinued, intact, sf bleeding controlled, No redness/swelling at site. Pressure dressing applied. Administered Medications: 00:13 Drug: Zofran (Ondansetron) 4 mg Route: IVP; Site: right antecubital; sf 01:03 Follow up: Response: No adverse reaction; Nausea is decreased sf 00:14 Drug: Dilaudid (HYDROmorphone) 1 mg Route: IVP; Site: right antecubital; sf 01:03 Follow up: Response: No adverse reaction; Pain is decreased sf 01:02 Drug: NS 0.9% 1000 ml Route: IV; Rate: 1 bolus; Site: right antecubital; sf 02:00 Follow up: Response: No adverse reaction; IV Status: Completed infusion; IV Intake: sf 1000ml 02:16 Drug: Flomax 0.4 mg Route: PO; sf 02:47 Follow up: Response: No adverse reaction sf 02:17 Drug: Rocephin (cefTRIAXone) 1 grams Route: IV; Rate: calculated rate; Site: right sf antecubital; 02:21 Follow up: IV Status: Completed infusion; IV Intake: 10ml sf 02:21 Drug: Magnesium Sulfate 1 grams Route: IVPB; Infused Over: 20 mins; Site: right sf antecubital; 02:35 Follow up: IV Status: Completed infusion; IV Intake: 100ml sf 02:35 Follow up: Response: No adverse reaction sf 02:45 Drug: Dilaudid (HYDROmorphone) 1 mg Route: IVP; Site: right antecubital; sf 03:17 Follow up: Response: Pain is decreased; Other sf Intake: 02:00 IV: 1000ml; Total: 1000ml. sf 02:21 IV: 10ml; Total: 1010ml. sf 02:35 IV: 100ml; Total: 1110ml. sf Outcome: 01:32 Discharge ordered by . cp 03:53 Discharged to home ambulatory. sf 03:53 Condition: stable 03:53 Discharge instructions given to patient, Instructed on discharge instructions, follow up and referral plans. medication usage, Demonstrated understanding of instructions, follow-up care, medications, Prescriptions given X 4. 03:54 Patient left the ED. sf Signatures: Dispatcher [employer] EDMS Henrietta Santo, RN RN bb Brandon Tafoya PA PA cp Pisarski, Jacob 3 Carrie [facility] Amarjit Medina RN RN sf
--- NOTE | 2021-01-21 01:34 | EDPHYS ---
Physician Documentation [facility] Name: Johnathon Chapin Age: 70 yrs Sex: Male : 1950 Arrival Date: 01/20/2021 Time: 23:06 Bed 20 Private MD: ED Physician Dylan Adams HPI: 01/20 23:45 This 70 yrs old Male presents to ER via Ambulatory with complaints of cp Possible Kidney Stone. Historical: - Allergies: 23:18 Niaspan; bb - Home Meds: 23:18 Allopurinol Oral [Active]; Hydrochlorothiazide Oral [Active]; Metformin Oral [Active]; bb pioglitazone 15 mg Oral tab [Active]; rosuvastatin Oral [Active]; solliqua [Active]; - PMHx: 23:18 Diabetes - IDDM; Gout; Hyperlipidemia; Hypertension; bb - Immunization history:: Adult Immunizations up to date. - Social history:: Smoking status: Patient denies any tobacco usage or history of. ROS: 23:50 Back: Positive for flank pain, on the right. cp 23:50 Eyes: Negative for injury, pain, redness, and discharge. cp 23:50 Constitutional: Negative for body aches, chills, fever, poor PO intake. 23:50 Cardiovascular: Negative for chest pain. 23:50 Respiratory: Negative for cough, shortness of breath, wheezing. 23:50 Abdomen/GI: Positive for abdominal pain, of the right lower quadrant, Negative for vomiting, diarrhea, constipation. 23:50 Neuro: Negative for altered mental status, headache, weakness. 23:50 All other systems are negative. Exam: 23:55 Constitutional: The patient appears in no acute distress, alert, awake, cp non-diaphoretic, non-toxic, well developed, well nourished, uncomfortable. 23:55 Head/Face: Normocephalic, atraumatic. cp 23:55 Eyes: Periorbital structures: appear normal, Conjunctiva: normal, no exudate, no injection, Sclera: no appreciated abnormality, Lids and lashes: appear normal, bilaterally. 23:55 ENT: External ear(s): are unremarkable, Nose: is normal, Mouth: Lips: moist, Posterior pharynx: Airway: no evidence of obstruction, patent. 23:55 Chest/axilla: Inspection: normal, Palpation: is normal, no crepitus, no tenderness. 23:55 Cardiovascular: Rate: normal, Rhythm: regular. 23:55 Respiratory: the patient does not display signs of respiratory distress, Respirations: normal, no use of accessory muscles, no retractions, labored breathing, is not present. 23:55 Abdomen/GI: Inspection: abdomen appears normal, Bowel sounds: active, all quadrants, Palpation: soft, in all quadrants, mild abdominal tenderness, in the right lower quadrant, rebound tenderness, is not appreciated, voluntary guarding, is not appreciated, involuntary guarding, is not appreciated. 23:55 Neuro: Orientation: to person, place \T\ time. Mentation: is normal. Vital Signs: 23:13 BP 169 / 86; Pulse 77; Resp 18 S; Temp 98(O); Pulse Ox 100% on R/A; Weight 95.25 kg bb (R); Height 6 ft. 2 in. (187.96 cm) (R); Pain 8/10; 04 02:16 BP 170 / 90; Pulse 78; Resp 16; Pulse Ox 98% ; sf 03:00 BP 153 / 76; Pulse 78; Resp 16; Pulse Ox 89% on R/A; sf 03:30 BP 129 / 86; Pulse 85; Resp 16; Pulse Ox 99% ; sf 01/20 23:13 Body Mass Index 26.96 (95.25 kg, 187.96 cm) bb MDM: 01/20 23:31 Patient medically screened. cp 01/21 00:00 Differential diagnosis: nephrolithiasis, pyelonephritis, UTI, ruptured AAA, dissecting cp AAA, appendicitis. 01:30 Data reviewed: vital signs, nurses notes, lab test result(s), radiologic studies, CT cp scan, I have discussed the patient's presentation/case with the attending Emergency Department Physician; and as a result, I will discharge patient. Counseling: I had a detailed discussion with the patient and/or guardian regarding: the historical points, exam findings, and any diagnostic results supporting the discharge/admit diagnosis, lab results, radiology results, to return to the emergency department if symptoms worsen or persist or if there are any questions or concerns that arise at home. 01/20 23:35 Order name: Basic Metabolic Panel cp 01/20 23:35 Order name: CBC with Diff cp 01/20 23:35 Order name: Hepatic Function cp 01/20 23:35 Order name: Lipase cp 01/20 23:36 Order name: Basic Metabolic Panel; Complete Time: 00:46 EDMS 01/21 00:46 Interpretation: Normal except: BUN 31; CRE 1.99; GFR 33. cp 01/20 23:36 Order name: Liver (Hepatic) Function; Complete Time: 00:46 EDMS 01/20 23:36 Order name: CBC with Automated Diff; Complete Time: 00:46 EDMS 01/20 23:36 Order name: Lipase; Complete Time: 00:46 EDMS 01/20 23:52 Order name: CT Stone Protocol cp 01/20 23:35 Order name: IV Saline Lock; Complete Time: 00:01 cp 01/20 23:35 Order name: Labs collected and sent; Complete Time: 00:01 cp 01/21 01:24 Order name: PO challenge; Complete Time: 02:06 cp Administered Medications: 00:13 Drug: Zofran (Ondansetron) 4 mg Route: IVP; Site: right antecubital; sf 01:03 Follow up: Response: No adverse reaction; Nausea is decreased sf 00:14 Drug: Dilaudid (HYDROmorphone) 1 mg Route: IVP; Site: right antecubital; sf 01:03 Follow up: Response: No adverse reaction; Pain is decreased sf 01:02 Drug: NS 0.9% 1000 ml Route: IV; Rate: 1 bolus; Site: right antecubital; sf 02:00 Follow up: Response: No adverse reaction; IV Status: Completed infusion; IV Intake: sf 1000ml 02:16 Drug: Flomax 0.4 mg Route: PO; sf 02:47 Follow up: Response: No adverse reaction sf 02:17 Drug: Rocephin (cefTRIAXone) 1 grams Route: IV; Rate: calculated rate; Site: right sf antecubital; 02:21 Follow up: IV Status: Completed infusion; IV Intake: 10ml sf 02:21 Drug: Magnesium Sulfate 1 grams Route: IVPB; Infused Over: 20 mins; Site: right sf antecubital; 02:35 Follow up: IV Status: Completed infusion; IV Intake: 100ml sf 02:35 Follow up: Response: No adverse reaction sf 02:45 Drug: Dilaudid (HYDROmorphone) 1 mg Route: IVP; Site: right antecubital; sf 03:17 Follow up: Response: Pain is decreased; Other sf Disposition: 04:46 Co-signature as Attending Physician, Dylan Adams MD. ma2 Disposition: 01/21/21 01:32 Discharged to Home. Impression: Calculus of kidney and ureter - right. - Condition is Stable. - Discharge Instructions: Kidney Stones, Dietary Guidelines to Help Prevent Kidney Stones. - Prescriptions for Tylenol- Codeine #3 300-30 mg Oral Tablet - take 2 tablets by ORAL route every 6-8 hours As needed; 20 tablet. Zofran 4 mg Oral Tablet - take 1 tablet by ORAL route every 12 hours As needed; 20 tablet. Flomax 0.4 mg Oral Capsule, Sust. Release 24 hr - take 1 capsule by ORAL route once daily 1/2 hour following the same meal each day; 7 capsule. Cipro 250 mg Oral Tablet - take 1 tablet by ORAL route every 12 hours for 7 days; 14 tablet. - Medication Reconciliation Form, Thank You Letter, Antibiotic Education, Prescription Opioid Use form. - Follow up: Jani Kilgore MD; When: 1 - 2 days; Reason: Recheck today's complaints. - Problem is new. - Symptoms have improved. Signatures: Dispatcher [employer] Henrietta Damon RN RN Brandon An PA PA cp Alzahri, Mohammad, MD MD ma2 Amarjit Medina RN RN sf Corrections: (The following items were deleted from the chart) 03:54 01:32 01/21/2021 01:32 Discharged to Home. Impression: Calculus of kidney and ureter - sf right. Condition is Stable. Forms are Medication Reconciliation Form, Thank You Letter, Antibiotic Education, Prescription Opioid Use. Follow up: Jani Kilgore; When: 1 - 2 days; Reason: Recheck today's complaints. Problem is new. Symptoms have improved. cp
[2021-01-21] MEDS ORDERED: TAMSULOSIN 0.4 MG SR CAP ONE (02:28)
[2021-01-21] MEDS ORDERED: MAGNESIUM SULFATE 1 gm IVPB 1 GM/100 ML BAG IV ONE (02:29)
[2021-01-21] MEDS ORDERED: CEFTRIAXONE/SWI 1gm 1 GM/10 ML SYR ONE (02:29)
[2021-01-21 06:30] VITALS: BP 170/90; O2SAT 98
--- NOTE | 2021-01-21 12:31 | RAD REPORT ---
EXAM DESCRIPTION: CT - Stone Protocol - 01/21/2021 3:32 am CLINICAL HISTORY: Right flank pain TECHNIQUE: Contiguous axial images obtained through the abdomen and pelvis following the uneventful administration of IV contrast. Coronal and sagittal reformatted images were provided. This exam was performed according to our departmental dose-optimization program, which includes autom ated exposure control, adjustment of the mA and/or kV according to patient size and/or use of iterati ve reconstruction technique. COMPARISON: 11/03/2020 FINDINGS: Lung bases: Minimal bibasilar subsegmental atelectasis/pleural parenchymal scar. The heart is mildly enlarged. Coronary artery calcification. Small hiatal hernia. Liver: Grossly unremarkable Gallbladder and biliary system: Top normal gallbladder wall thickness again demonstrated. No calcifie d gallstones. Pancreas: Grossly unremarkable Spleen: Grossly unremarkable Adrenals: Unremarkable Kidneys: Stable 1.2 cm exophytic cyst at the upper pole on the left. Small bilateral renal calculi. M ild right hydronephrosis and proximal to mid hydroureter. 6 mm proximal to mid right ureteral calculu s (series 202 image 61, series 201 image 91 and series 203 image 62). There are a couple 1 to 2 mm ca lculi more proximally within the ureter (series 202 images 57 and 58, series 203 image 66 and series 201 images 80 and 81). Bowel: Duodenal diverticula. Moderate stool. Colonic diverticula without adjacent inflammatory change . No obstruction. No appreciable mucosal thickening. Appendix: Normal caliber appendix. No findings to suggest acute appendicitis. Urinary bladder: The urinary bladder is partially decompressed. Reproductive: Unremarkable as visualized Lymph nodes: No pathologically enlarged lymph nodes. Peritoneum: No focal fluid collection. No free air. Vessels: Moderate atherosclerotic disease. No abdominal aortic aneurysm. Abdominal wall: Tiny fat-containing umbilical hernia. Small bilateral fat-containing inguinal hernias . Bones: Multilevel spondylosis. No acute fracture. IMPRESSION: 1. Mildly obstructing 6 mm proximal to mid right ureteral calculus. There are a couple 1 to 2 mm calculi more proximally within the ureter. 2. Other findings as above. Electronically signed by: Iram Browning MD 01/21/2021 1:03 AM CDT Due to temporary technical issues with the PACS/Fluency reporting system, reports are being signed by the in house radiologist without review as a courtesy to ensure prompt reporting. The interpreting r chesteriologist is fully responsible for the content of the report.
== END 2021-01-21 03:54 | disposition home or self-care (01) ==
LOC: ER 23:01
DX: N20.2 Calculus of kidney with calculus of ureter (principal); I10 Essential (primary) hypertension; E11.9 Type 2 diabetes mellitus without complications; E78.5 Hyperlipidemia, unspecified; Z88.8 Allergy status to other drugs, medicaments and biological substances
CPT/HCPCS: 96361; 85025; 80048; 36415; 80076; 83690; 76377; 74176; 96375; 96374; 99284; J3475; J1170 ×2; J0696; J7030; J2405

== ENCOUNTER 2022-12-23 23:06 | Emergency (ER) | payer MEDICARE, OTHER ==
--- OUTSIDE RECORDS SUMMARY | 2022-12-23 23:15 | XMS REPORT | Continuity of Care Document ---
:1950 Author Organization [facility] t Address [address] [facility] [address] [place] [address] Care Team Providers Name Role Phone Pcp, Patient Does Not Have A Primary Care Physician [id number] Aniyah Morataya Attending Clinician SERGIO ARANA Attending Clinician Unavailable PAO MORGAN Attending Clinician Unavailable Carrie Anne Attending Clinician Eddie TRINH, Pao Attending Clinician Doctor Unassigned, Eleva Attending Clinician Unavailable Stuart Mckeon Attending Clinician Dominique Richter RN Attending Clinician Unavailable Only, Ang Db Test Attending Clinician Unavailable Jessie Heath Attending Clinician JESSIE MARINO Attending Clinician Unavailable Marty Chavez Attending Clinician Bruna Bentley Attending Clinician EARNESTINE WINKLER Attending Clinician Unavailable Lab, Adc Fam Pob I Attending Clinician Unavailable Earnestine Broderick Attending Clinician Pob1, Acute Care Clinic Attending Clinician Unavailable Jani Mc Attending Clinician Payers Payer Name Policy Type Policy Number Effective Date Expiration Date Angelica prasad [facility] ANNIKAAGGIE [id number] 2021 00:00:00 [employer] [id number] 2021 MCARE ADV CHOICE 00:00:00 PPO UNITED C1 [id number] Common HEALTHCARE [facility] Problems Condition Condition Condition Status Onset Resolution Last Treating Co mments Source Name Details Category Date Date Treatment Clinician Date N20.0 - N20.0 - Diagnosis Active 2020-12-05 Memoria CALCULUS CALCULUS 12-04 11:08:00 l OF KIDNEY OF KIDNEY 00:01: Herm selin Active 00 12/04/2020 [facility] [place] N20.1 - N20.1 - Diagnosis Active 2020-11-24 Memoria CALCULUS CALCULUS 2 09:23:00 l OF URETER OF URETER 00:01: Herm selin Active 00 11/20/2020 [facility] [place] M25.5 - M25.5 - Diagnosis Active 2014-102015-07-24 Memoria PAIN IN PAIN IN 0- 15:05:00 l JOINT JOINT 00:01: Jonn Active 00 07/24/2015 [facility] [place] Foot pain Foot pain Problem Active 2015-06-17 Memoria (finding) (finding) 05-10 08:19:30 l Active 00:00: Jonn 05/10/2015 00 Problem 06/17/2015 Data migrated from [employer] on 06/02/15. [facility] [place] 719.4 - 719.4 - Diagnosis Active 2015-05-10 Memoria PAIN IN PAIN IN 05-09 12:52:00 l JOINT JOINT 00:01: Jonn Active 00 05/09/2015 [facility] [place] Chronic Chronic Problem Active 2022-03-24 Me moria kidney kidney 07-04 01:58:15 l disease disease 00:00: Jonn stage 3 stage 3 00 (disorder) (disorder) Active 07/04/2013 Problem 03/24/2022 Data migrated from [employer] on 03/10/15. [facility], [facility] [place] [id number] Pain in Problem Active Commo n joint [facility] involving - [facility] left ankle [facility] and foot [facility] No known No known Disease Unive rs active active ity of problems problems [facility] Diabetes Diabetes Problem Resolve 2015-08-24 Memoria mellitus mellitus d 05:22:40 l (disorder) (disorder) He rmann Resolved Problem 08/24/2015 [facility] [place] Type II Type II Problem Active 2021-02-17 Co dayanara diabetes diabetes 00:27:17 l mellitus mellitus Luis Angel n uncontroll uncontroll ed ed (finding) (finding) Active Problem 02/17/2021 Medical Group, [facility] [place] Diabetic Diabetic Problem Active 2015-06-17 Memoria renal renal 08:19:30 l disease disease [place] (disorder) (disorder) Active Problem 06/17/2015 Data migrated from [employer] on 03/10/15. [facility] [place] Hyperchole Hyperchol Problem Active 2015-08-24 Memoria sterolemia esterolemi 05:22:40 l (disorder) a Luis Angel n (disorder) Active Problem 08/24/2015 Data migrated from [employer] on 03/10/15. [facility] [place] Benign Benign Problem Active 2022-09-28 Jose walter hypertensi hypertensi 11:08:24 l on on [place] (disorder) (disorder) Active Problem 09/28/2022 Data migrated from [employer] on 03/10/15. [facility], [facility] [place],[facility] Internal Medicine [facility] Erectile Erectile Problem Active 2022-09-28 Memoria dysfunctio dysfunctio 11:08:24 l n n Active Jonn Problem 09/28/2022 Medical Group,[facility] Gout Gout Problem Active 2022-09-28 Memor ia (disorder) (disorder) 11:08:24 l Active [place] Problem 09/28/2022 Data migrated from [employer] on 03/10/15. [facility], [facility] [place],[facility] Internal Medicine [facility] Kidney Kidney Problem Active 2022-09-28 Jose watler [place] 11:08:24 l (disorder) (disorder) He rmann Active Problem 09/28/2022 Medical Group,[facility] Mixed Mixed Problem Active 2022-09-28 Memor ia hyperlipid hyperlipid 11:08:24 l emia emia [place] (disorder) (disorder) Active Problem 09/28/2022 Medical Group,[facility] Internal Medicine [facility] Diabetes Diabetes Problem Active 2022-09-28 Memoria mellitus mellitus 11:08:24 l type 2 type 2 [place] (disorder) (disorder) Active Problem 09/28/2022 [facility], [facility] [place],[facility] Internal Medicine [facility] Ureteric Ureteric Problem Active 2022-09-28 Memoria [place] 11:08:24 l (disorder) (disorder) He rmann Active Problem 09/28/2022 [facility] Heart Heart Diagnosis 2021-102022-09-28 2022-09-28 Memoria murmur murmur 2-15 11:08:24 11:08:24 l (finding) (finding) 20:15: Herm selin 09/25/2022 00 Diagnosis 09/28/2022 [facility] Internal Medicine [place] Renal Renal Diagnosis 2021-102022-09-28 2022-09-28 Memoria disorder disorder 2-15 11:08:24 11:08:24 l associated associated 19:15: He rmann with type with type 00 II II diabetes diabetes mellitus mellitus (disorder) (disorder) 09/25/2022 Diagnosis 09/28/2022 [facility] Internal Medicine [place] Essential Essential Diagnosis 2021-102022-09-28 2022-09-28 Memoria hypertensi hypertensi 2-15 11:08:24 11:08:24 l on on 19:15: [place] (disorder) (disorder) 00 09/25/2022 Diagnosis 09/28/2022 [facility] Internal Medicine [place] Chronic Chronic Diagnosis 2021-102022-09-28 2022-09-28 Memoria kidney kidney 2-15 11:08:24 11:08:24 l disease disease 19:15: [place] stage 3B stage 3B 00 (disorder) (disorder) 09/25/2022 Diagnosis 09/28/2022 Medical Group,[facility] Internal Medicine [place] Stress Stress Problem Resolve 2022-07-04 2022-07-04 Memoria fracture fracture d 05-10 04:10:15 04:10:15 l of of 00:00: Jonn metatarsal metatarsal 00 bone bone (disorder) (disorder) Resolved 05/10/2015 Problem 07/04/2022 Data migrated from [employer] on 06/02/15. [facility] Group, [facility] [place] Testicular Problem Resolve 2022-07-04 2022-07-04 Memoria hypofuncti Testicular d 12-30 04:10:15 04:10:15 l on hypofuncti 00:00: Luis Angel herrera (disorder) on 00 (disorder) Resolved 12/30/2012 Problem 07/04/2022 Data migrated from [employer] on 03/10/15. [facility] Group, [facility] [place] Hyperkerat Hyperkera Problem Resolve 2015-08-24 2015-08-24 Memoria osis tosis d 01-02 05:22:40 05:22:40 l (disorder) (disorder) 00:00: He rmann Resolved 00 01/02/2014 Problem 08/24/2015 Data migrated from [employer] on 03/10/15. [facility] [place] History of Past Illness Condition Condition Condition Status Onset Resolution Last Treating Co mments Source Name Details Category Date Date Treatment Clinician Date Chronic Chronic Problem 2022 2022 Memoria kidney kidney 06-27 02:25:08 02:25:08 l disease, disease, 15:46: Luis Angel herrera stage 3b stage 3b 00 06/27/2022 2022 Medical Group Mixed Mixed Problem 2022 2022 M emoria hyperlipid hyperlipid 06-27 02:25:08 02:25:08 l emia emia 15:45: Jonn 06/27/2022 00 2022 Medical Group Type 2 Type 2 Problem 2022 2022 Memoria diabetes diabetes 06-27 02:25:08 02:25:08 l mellitus mellitus 15:45: Luis Angel herrera with other with other 00 diabetic diabetic kidney kidney complicati complicati on on 06/27/2022 2022 Medical Group Essential Problem 2022 2022 Memoria (primary) Essential 06-27 02:25:08 02:25:08 l hypertensi (primary) 15:45: martins on hypertensi 00 on 06/27/2022 2022 Medical Group Encounter Encounter Problem 2022 2022 Chante for for 06-27 02:25:08 02:25:08 l general general 15:45: Jonn adult adult 00 medical medical examinatio examinatio n without n without abnormal abnormal findings findings 06/27/2022 2022 [facility] Chronic Chronic Problem 2022-03-24 2022-03-24 Memjanine kidney kidney - 01:58:15 01:58:15 l disease, disease, 16:38: Luis Angel herrera stage 3 stage 3 00 unspecifie unspecifie d d 03/21/2022 03/24/2022 Medical Group Gout, Gout, Problem 2022-03-24 2022-03-24 M emoria unspecifie unspecifie 03-21 01:58:15 01:58:15 l d d 16:38: Jonn 03/21/2022 00 03/24/2022 [facility] Allergies, Adverse Reactions, Alerts Allergy Allergy Status Severity Reaction(s) Onset Inactive Treating Comm ents Source Name Type Date Date Clinician NO KNOWN Drug Active Univers ALLERGIE Class ity of S [facility] niacin niacin Active Unknown [facility] niacin<s niacin<s Active Memori a up>1</kerr up>1</kerr l p> p> Jonn Social History Social Habit Start Date Stop Date Quantity Comments Source History of [facility] - [facility] Use [facility] Sex Assigned At [facility] Exposure to 2022-07-05 2022-07-15 Not sure University SARS-CoV-2 00:00:00 09:08:00 [facility] (event) [place] Tobacco use and 2022-07-15 2022-07-15 Smokeless tobacco Un iversity of exposure 00:00:00 00:00:00 non-user [facility] Social History 2022-06-27 2022-06-27 Torie delaney 15:19:16 15:19:16 Smoking Status Start Date Stop Date Source Tobacco smoking status [facility] Tobacco smoking consumption [facility] unknown Branch Medications Ordered Filled Start Stop Current Ordering Indication Dosage Frequency Signature Comments Components Source Medication Medication Date Date Medication? Clinician (SIG) Name Name Tadalafil 2021-10 Yes = 1 tab, Jose walter (Eqv-Cialis 1-28 PO, Daily, l ) 20 mg 17:34: PRN Jonn oral tablet 00 NEEDED FOR FOR ERECTILE DYSFUNCTIO N, # 10 tab, 0 Refill(s), Pharmacy: [facility] [id number], 187.96, cm, 06/27/22 10:23:00 CDT, Height, 113.239, kg, 06/27/22 10:23:00 CDT, Weight acetaminoph 2021-10 No [id number] 975mg Univers en 0-04 10-04 ity of (TYLENOL) 14:43: 14:49 [place] tablet 975 00 :00 Medical Branch acetamino 2021-10- No [id number] 975mg 975 mg, Univers en 0-04 10-04 Oral, ity of (TYLENOL) 14:43: 14:49 ONCE, 1 [place] tablet 975 00 :00 dose, On Medic al mg Tue Branch 07/15/22 at 0945, Routine oseltamivir 2021-10- No [id number] 75mg Take 1 Univers (TAMIFLU) 0-04 10-10 capsule by ity of 75 mg 00:00: 04:59 mouth in [place] capsule 00 :00 the Medical morning Branch and 1 capsule in the evening. Take with meals. Do all this for 5 days. allopurinol 2021-10 Yes = 1 tab, Me moria 300 mg oral 0-03 PO, Daily, l tablet 17:34: # 100 tab, Teresa nn 00 3 Refill(s), Pharmacy: [facility] ([facility]), 187.96, cm, 06/27/22 10:23:00 CDT, Height, 113.239, kg, 06/27/22 10:23:00 CDT, Weight pioglitazon Yes Univer s e 15 mg 9-26 ity of tablet 00:00: [place] [address] Medical Branch pioglitazon 2022-0 Yes 15 mg = 1 M emoria e 15 mg 9-16 tab, PO, l oral tablet 16:57: Daily, # He rmann 00 90 tab, 3 Refill(s), Pharmacy: [facility] ([facility]), 187.96, cm, 06/27/22 10:23:00 CDT, Height, 113.239, kg, 06/27/22 10:23:00 CDT, Weight pioglitazon 0 Yes 15 mg = 1 M emoria e 15 mg 9-16 tab, PO, l oral tablet 16:57: Daily, # He rmann 00 90 tab, 3 Refill(s), Pharmacy: [facility] ([facility]), 187.96, cm, 06/27/22 10:23:00 CDT, Height, 113.239, kg, 06/27/22 10:23:00 CDT, Weight Jardiance 0 Yes 10 mg = 1 Mem oria 10 mg oral 9-16 tab, PO, l tablet 16:56: QAM, # 90 Luis Angel n 00 tab, 3 Refill(s), Pharmacy: [facility] ([facility]), 187.96, cm, 06/27/22 10:23:00 CDT, Height, 113.239, kg, 06/27/22 10:23:00 CDT, Weight Jardiance 0 Yes 10 mg = 1 Mem oria 10 mg oral 9-16 tab, PO, l tablet 16:56: QAM, # 90 Luis Angel n 00 tab, 3 Refill(s), Pharmacy: [facility] ([facility]), 187.96, cm, 06/27/22 10:23:00 CDT, Height, 113.239, kg, 06/27/22 10:23:00 CDT, Weight OneTouch 0 Yes 1 ea, Memoria Ultra Blue 8-27 MISC, TID, l Blood 14:51: # 300 [place] Glucose 00 strip, Test Strip Insulin dependent, Does not use insulin pump, Last DM eval date 08/20/20, 3 Refill(s), Pharmacy: [facility] ([facility]), 187.96, cm, 03/21/22 11:32:00 CDT, Height, 113.239, kg, 03/21/22 11:32:00 CDT,... allopurinoL Yes Univer s 300 mg 7-26 ity of tablet 00:00: [place] [facility] Branch SOLIQUA Yes Univers 100/33 100 7-26 ity of unit-33 00:00: [place] mcg/mL In [facility] rosuvastati Yes Univer s n 40 mg 7-26 ity of tablet 00:00: [place] [facility] Soliqua Yes 36 unit, Memori a /33 7-01 SUB-Q, l subcutaneou 14:08: Daily, # He rmann s solution 00 45 mL, 3 Refill(s), [facility], 187.96, cm, 03/21/22 11:32:00 CDT, Height, 113.239, kg, 03/21/22 11:32:00 CDT, Weight BD Yes 1 ea, Memoria Ultra-Fine 4-26 MISC, l Bruna 15:11: Daily, # [place] Insulin Pen 00 30 pen [place] 32G needle, 0 4mm=5/32 Refill(s), [facility] Pharmacy: [id number], 187.96, cm, 11/21/21 13:29:00 [employer], Height, 107.727, kg, 11/21/21 13:29:00 [employer], Weight BD Yes 1 ea, Memoria Ultra-Fine 4-26 MISC, l Bruna 15:11: Daily, # Jonn Insulin Pen 00 30 pen [place] 32G needle, 0 4mm=5/32 Refill(s), [facility] Pharmacy: [facility] #[id number], 187.96, cm, 11/21/21 13:29:00 [employer], Height, 107.727, kg, 11/21/21 13:29:00 [employer], Weight rosuvastati Yes = 1 tab, Me moria n 40 mg 3-07 PO, Daily, l oral tablet 14:32: # 90 tab, H ermann 00 3 Refill(s), Pharmacy: [facility], 187.96, cm, 11/21/21 13:29:00 [employer], Height, 107.727, kg, 11/21/21 13:29:00 [employer], Weight pioglitazon 2020-10 Yes 30 mg = 1 M emoria e 30 mg 0-28 tab, PO, l oral tablet 17:59: Daily, # He rmann 90 tab, 3 Refill(s), Pharmacy: [facility], 187.96, cm, 08/08/21 11:12:00 CDT, Height, 98.182, kg, 08/08/21 11:12:00 CDT, Weight pioglitazon 2020-10 Yes 30 mg = 1 M emoria e 30 mg 0-28 tab, PO, l oral tablet 17:59: Daily, # He rmann 90 tab, 3 Refill(s), Pharmacy: [facility], 187.96, cm, 08/08/21 11:12:00 CDT, Height, 98.182, kg, 08/08/21 11:12:00 CDT, Weight tadalafil Yes 20 mg = 1 Mem oria 20 MG Oral 7-21 tab, PO, l Tablet 16:52: Daily, PRN Teresa nn [Cialis] 00 for erectile dysfunctio n, Take prior to intercours e, # 10 tab, 5 Refill(s) tadalafil Yes 20 mg = 1 Mem oria 20 MG Oral 7-21 tab, PO, l Tablet 16:52: Daily, PRN Teresa nn [Cialis] 00 for erectile dysfunctio n, Take prior to intercours e, # 10 tab, 5 Refill(s) 3 ML Yes 40 units, Memoria Insulin 5-05 SUB-Q, l Glargine 16:57: Daily, [place] 100 UNT/ML 00 Inject / once Lixisenatid within the e 0.033 hour prior MG/ML Pen to the Injector first meal [Soliqua] of the day; three month supply, # 3 ea, 3 Refill(s), Pharmacy: [facility], 187.96, cm, 02/05/21 13:04:00 CDT, Height, 97.727, kg, 02/05/21 13:04:00 CDT, Weight 3 ML 2020-0 Yes 40 units, Memoria Insulin 5-05 SUB-Q, l Glargine 16:57: Daily, [place] 100 UNT/ML 00 Inject / once Lixisenatid within the e 0.033 hour prior MG/ML Pen to the Injector first meal [Soliqua] of the day; three month supply, # 3 ea, 3 Refill(s), Pharmacy: [facility], 187.96, cm, 02/05/21 13:04:00 CDT, Height, 97.727, kg, 02/05/21 13:04:00 CDT, Weight Colace 100 2020-0 Yes 100 mg = 1 M emoria mg oral 4-21 cap, PO, l capsule 16:23: BID, PRN Luis Angel n 00 Constipati on, # 20 cap, 0 Refill(s), Pharmacy: [facility] #[id number], 187.96, cm, 01/23/21 14:53:00 CDT, Height, 96.818, kg, 01/23/21 14:53:00 CDT, Weight Tamsulosin 2020-0 Yes 0.4 mg = 1 M emoria hydrochlori 4-16 cap, PO, l de 0.4 MG 14:44: Daily, # Herm selin Oral 00 14 cap, 0 Capsule Refill(s), [Flomax] Pharmacy: [facility] #[id number], 187.96, cm, 01/23/21 14:53:00 CDT, Height, 96.818, kg, 01/23/21 14:53:00 CDT, Weight Tamsulosin 2020-0 Yes 0.4 mg = 1 M emoria hydrochlori 4-16 cap, PO, l de 0.4 MG 14:44: Daily, # Herm selin Oral 00 14 cap, 0 Capsule Refill(s), [Flomax] Pharmacy: [facility] #[id number], 187.96, cm, 01/23/21 14:53:00 CDT, Height, 96.818, kg, 01/23/21 14:53:00 CDT, Weight Zofran Yes 0 Memoria 4-14 Refill(s) l 19:57: Tamsulosin Yes 0.4 mg = 1 M emoria hydrochlori 4-14 cap, PO, l de 0.4 MG 19:57: Daily, # Herm selin Oral 00 30 cap, 0 Capsule Refill(s) [Flomax] Cipro Yes PO, Q12H, Memoria 4-14 0 l 19:57: Refill(s) Ciprofloxac Yes 250 mg = 1 Memoria in 250 MG 4-14 tab, PO, l Oral Tablet 19:57: Q12H, # 20 Jonn [Cipro] 00 tab, 0 Refill(s) Zofran Yes 0 Memoria 4-14 Refill(s) l 19:57: Tamsulosin Yes 0.4 mg = 1 M emoria hydrochlori 4-14 cap, PO, l de 0.4 MG 19:57: Daily, # Herm selin Oral 00 30 cap, 0 Capsule Refill(s) [Flomax] Cipro Yes PO, Q12H, Memoria 4-14 0 l 19:57: Refill(s) Ciprofloxac Yes 250 mg = 1 Memoria in 250 MG 4-14 tab, PO, l Oral Tablet 19:57: Q12H, # 20 [place] [Cipro] 00 tab, 0 Refill(s) Acetaminoph Yes 1 - 2 tab, Memoria en 300 MG / 4-14 PO, Q4H, l Codeine 19:56: PRN Pain, Teresa nn Phosphate 00 # 20 tab, 30 MG Oral 0 Tablet Refill(s) [Tylenol with Codeine #3] Acetaminoph Yes 1 - 2 tab, Memoria en 300 MG / 4-14 PO, Q4H, l Codeine 19:56: PRN Pain, Teresa nn Phosphate 00 # 20 tab, 30 MG Oral 0 Tablet Refill(s) [Tylenol with Codeine #3] non-formula Yes insulin Mem oria ry 3-22 pen l 18:13: needles Jonn 00 for his soliqua, Refill(s) 0 non-formula Yes insulin Mem oria ry 3-22 pen l 18:13: needles Jonn 00 for his sol[place]a, Refill(s) 0 rosuvastati Yes = 1 tab, Me moria n 40 mg 3-22 PO, Daily, l oral tablet 14:40: # 90 tab, H ermann 00 3 Refill(s), Pharmacy: [facility], 187.96, cm, 12/05/20 9:44:00 [employer], Height, 95, kg, 12/05/20 9:44:00 [employer], Weight pioglitazon Yes = 1 tab, Me moria e 15 mg 3-22 PO, Daily, l oral tablet 14:40: # 90 tab, H ermann 00 3 Refill(s), Pharmacy: [facility], 187.96, cm, 12/05/20 9:44:00 [employer], Height, 95, kg, 12/05/20 9:44:00 [employer], Weight rosuvastati Yes = 1 tab, Me moria n 40 mg 3-22 PO, Daily, l oral tablet 14:40: # 90 tab, H ermann 00 3 Refill(s), Pharmacy: [facility], 187.96, cm, 12/05/20 9:44:00 [employer], Height, 95, kg, 12/05/20 9:44:00 [employer], Weight pioglitazon Yes = 1 tab, Me moria e 15 mg 3-22 PO, Daily, l oral tablet 14:40: # 90 tab, H ermann 00 3 Refill(s), Pharmacy: [facility], 187.96, cm, 12/05/20 9:44:00 [employer], Height, 95, kg, 12/05/20 9:44:00 [employer], Weight Vantin 200 Yes 200 mg = 1 M emoria mg oral 2-11 tab, PO, l tablet 20:48: Q12H, X 10 Teresa nn 00 day, # 20 tab, 0 Refill(s), Pharmacy: [facility] #[id number], 187.96, cm, 11/20/20 9:56:00 [employer], Height, 95, kg, 11/20/20 9:56:00 [employer], Weight Vantin 200 Yes 200 mg = 1 M emoria mg oral 2-11 tab, PO, l tablet 20:48: Q12H, X 10 Teresa nn 00 day, # 20 tab, 0 Refill(s), Pharmacy: [facility] #[id number], 187.96, cm, 11/20/20 9:56:00 [employer], Height, 95, kg, 11/20/20 9:56:00 [employer], Weight Soliqua Yes 0 Memoria 100/33 2-09 Refill(s) l 16:05: Jonn 00 3 ML Yes 0 Memoria Insulin 2-09 Refill(s) l Glargine 16:05: Jonn 100 UNT/ML 00 / Lixisenatid e 0.033 MG/ML Pen Injector [Soliqua] Soliqua Yes 0 Memoria 100/33 2-09 Refill(s) l 16:05: [place] 00 3 ML Yes 0 Memoria Insulin 2-09 Refill(s) l Glargine 16:05: Jonn 100 UNT/ML 00 / Lixisenatid e 0.033 MG/ML Pen Injector [Soliqua] Lott 5-325 Lott 5-325 2020- No 1{table QID Lott MG MG -27 11-12 t_as_ne 5-325 MG 00:00: 00:00 eded} 00 :00 3 ML 2019-10 Yes 40 units, Memoria Insulin 2-23 SUB-Q, l Glargine 17:57: Daily, Jonn 100 UNT/ML 00 Inject / once Lixisenatid within the e 0.033 hour prior MG/ML Pen to the Injector first meal [Soliqua] of the day; one month supply, # 1 ea, 5 Refill(s) 3 ML 2019-10 Yes 40 units, Memoria Insulin 2-23 SUB-Q, l Glargine 17:57: Daily, [place] 100 UNT/ML 00 Inject / once Lixisenatid within the e 0.033 hour prior MG/ML Pen to the Injector first meal [Soliqua] of the day; one month supply, # 1 ea, 5 Refill(s) OneTouch 2019-10 Yes 1 ea, [place] Ultra Blue 2-08 MISC, TID, l Blood 15:12: # 300 ea, Jonn Glucose 00 Insulin Test Strip dependent, Does not use insulin pump, Last DM eval date 08/20/20, 3 Refill(s), Pharmacy: [facility], 187.96, cm, 08/20/20 13:58:00 [employer], Height, 92.273, kg, 08/20/20 13:58:00 [employer], Weight OneTouch 2019-10 Yes 1 ea, Memoria Ultra Blue 2-08 MISC, TID, l Blood 15:12: # 300 ea, Jonn Glucose 00 Insulin Test Strip dependent, Does not use insulin pump, Last DM eval date 08/20/20, 3 Refill(s), Pharmacy: [facility], 187.96, cm, 08/20/20 13:58:00 [employer], Height, 92.273, kg, 08/20/20 13:58:00 [employer], Weight allopurinol 2019-10 Yes = 1 tab, Me moria 300 mg oral 2-08 PO, Daily, l tablet 15:11: # 90 tab, Luis Angel n 00 3 Refill(s), Pharmacy: [facility], 187.96, cm, 08/20/20 13:58:00 [employer], Height, 92.273, kg, 08/20/20 13:58:00 [employer], Weight Metformin 2019-10 Yes = 1 tab, Jose walter hydrochlori 2-08 PO, BID, # l de 850 MG 15:11: 180 tab, 3 He rmann Oral Tablet 00 Refill(s), Pharmacy: [facility], 187.96, cm, 08/20/20 13:58:00 [employer], Height, 92.273, kg, 08/20/20 13:58:00 [employer], Weight perindopril 2019-10 Yes = 1 tab, Me moria 8 mg oral 2-08 PO, Daily, l tablet 15:11: # 90 tab, Luis Angel n 00 3 Refill(s), Pharmacy: [facility], 187.96, cm, 08/20/20 13:58:00 [employer], Height, 92.273, kg, 08/20/20 13:58:00 [employer], Weight allopurinol 2019-10 Yes = 1 tab, Me moria 300 mg oral 2-08 PO, Daily, l tablet 15:11: # 90 tab, Luis Angel n 00 3 Refill(s), Pharmacy: [facility], 187.96, cm, 08/20/20 13:58:00 [employer], Height, 92.273, kg, 08/20/20 13:58:00 [employer], Weight Metformin 2019-10 Yes = 1 tab, Jose walter hydrochlori 2-08 PO, BID, # l de 850 MG 15:11: 180 tab, 3 He rmann Oral Tablet 00 Refill(s), Pharmacy: [facility], 187.96, cm, 08/20/20 13:58:00 [employer], Height, 92.273, kg, 08/20/20 13:58:00 [employer], Weight perindopril 2019-10 Yes = 1 tab, Me moria 8 mg oral 2-08 PO, Daily, l tablet 15:11: # 90 tab, Luis Angel n 00 3 Refill(s), Pharmacy: [facility], 187.96, cm, 08/20/20 13:58:00 [employer], Height, 92.273, kg, 08/20/20 13:58:00 [employer], Weight No known No No known Unive rs medications 7-11 medication it y of 12:46: s [address] 0.25 MG, Yes 0.5 mg, Memori a 0.5 MG Dose 6-09 SUB-Q, l 1.5 ML 16:35: Q7D, use [place] semaglutide 00 after 1.34 MG/ML starter Pen kit, # 2 Injector mL, 5 [Ozempic] Refill(s), Pharmacy: [facility] #[id number] 0.25 MG, 2019- Yes 0.5 mg, Memori a 0.5 MG Dose 6-09 SUB-Q, l 1.5 ML 16:35: Q7D, use [place] semaglutide 00 after 1.34 MG/ML starter Pen kit, # 2 Injector mL, 5 [Ozempic] Refill(s), Pharmacy: [facility] #[id number] Azithromyci 0 Yes See Memori a n 5 Day 11-11 Instructio l Dose Pack 17:23: ns, Take 2 He rmann 250 mg oral 00 tablets by tablet mouth the first day then 1 tablet by mouth days 2-5., X 5 day, # 6 tab, 0 Refill(s) benzonatate 0 Yes 100 mg = 1 Memoria 100 MG Oral -31 cap, PO, l Capsule 17:23: TID, PRN Luis Angel n [Tessalon 00 Cough/Pete Perles] estion, X 10 day, # 30 cap, 0 Refill(s) Azithromyci Yes See Memori a n 5 Day 11-11 Instructio l Dose Pack 17:23: ns, Take 2 He rmann 250 mg oral 00 tablets by tablet mouth the first day then 1 tablet by mouth days 2-5., X 5 day, # 6 tab, 0 Refill(s) benzonatate 0 Yes 100 mg = 1 Memoria 100 MG Oral -31 cap, PO, l Capsule 17:23: TID, PRN Luis Angel n [Tessalon 00 Cough/Pete Perles] estion, X 10 day, # 30 cap, 0 Refill(s) moxifloxaci Yes 1 drp, Jose walter n 5 MG/ML 6-11 Each l Ophthalmic 16:55: Affected Her martins Solution 00 Eye, TID, [Vigamox] X 7 day, # 3 mL, 0 Refill(s) moxifloxaci Yes 1 drp, Jose walter n 5 MG/ML 6-11 Each l Ophthalmic 16:55: Affected Her martins Solution 00 Eye, TID, [Vigamox] X 7 day, # 3 mL, 0 Refill(s) BD Yes See Memoria Ultra-Fine 2-28 Instructio l original 17:41: ns, MISC Teresa nn Insulin Pen 00 Daily, # [place] 29G 100 ea, 3 12.7mm=1/2 Refill(s), inch Pharmacy: [facility] BD Yes See Memoria Ultra-Fine 2-28 Instructio l original 17:41: ns, MISC Teresa nn Insulin Pen 00 Daily, # [place] 29G 100 ea, 3 12.7mm=1/2 Refill(s), inch [...] 3 Refill(s), Pharmacy: [facility] perindopril Yes See Memori a 8 mg oral [...] tab, 1 Refill(s), Pharmacy: [facility] Hydrochloro Yes See [...] l oral tablet 20:43: ns, TAKE 1 [place] 00 TABLET DAILY, # 90 tab, 3 Refill(s), Pharmacy: [facility] perindopril Yes See Memori a 8 mg oral [...] tab, PO, l Tablet 15:32: BID, PRN [place] 00 gout/joint pain, # 60 tab, 0 Refill(s), Pharmacy: [facility] Colchicine Yes 0.6 mg = 1 M emoria 0.6 MG Oral 6-27 tab, PO, l Tablet 15:32: BID, PRN Jonn 00 gout/joint pain, # 60 tab, 0 Refill(s), Pharmacy: [email or web address] pioglitazon Yes 15 mg = 1 M emoria e 15 MG 3-26 tab, PO, l Oral Tablet 15:58: Daily, # He r[place] [Actos] 29 30 tab, 0 Refill(s), Pharmacy: [email or web address] pioglitazon Yes 15 mg = 1 M emoria e 15 MG 3-26 tab, PO, l Oral Tablet 15:58: Daily, # He rmann [Actos] 29 30 tab, 0 Refill(s), Pharmacy: [facility] pioglitazon No 15 mg = 1 M emoria e 15 MG 3-26 tab, PO, l Oral Tablet 15:57: Daily, # He rmann [Actos] 00 90 tab, 1 Refill(s), Pharmacy: [facility] pioglitazon No 15 mg = 1 M emoria e 15 MG 3-26 tab, PO, l Oral Tablet 15:57: Daily, # He rmann [Actos] 00 90 tab, 1 Refill(s), Pharmacy: [facility] betamethaso 2014-10 Yes 1 appl, Mem oria ne 0-11 TOP, l dipropionat 18:20: qWeek, Herm selin e topical 00 apply to 0.05% scalp once lotion weekly to affected area, 0 Refill(s) Vitamin D3 2014-10 Yes 2,000 Memori a 2000 intl 0-11 IntlUnit = l units oral 18:20: 1 tab, PO, H ermann tablet 00 Daily, 0 Refill(s) multivitami 2014-10 Yes 1 tablet, M emoria n 0-11 PO, Daily, l 18:20: 0 Jonn 00 Refill(s) Surfak 2014-10 Yes 240 mg, Memoria Stool 0-11 PO, Daily, l Softener 18:20: 0 [place] 00 Refill(s) aspirin Yes 81 mg, PO, Jose walter 9-03 Daily, 0 l 19:01: Refill(s) [place] 00 urea Yes 1 appl, Memoria topical 40% 06-14 TOP, l cream 19:01: Bedtime, 0 Luis Angel n 00 Refill(s) No known No Univers medications ity of [facility] No known No Univers medications ity of [facility] No known No Univers medications ity of [facility] No known No Univers medications ity of [facility] No known No Univers medications ity of [facility] No known No Univers medications ity of [facility] No known No Univers medications ity of [facility] Lantus Lantus Yes Carlos as Common De Dios directed [facility] Hydrochloro Hydrochloro Yes Carlos 1 tablet Common thiazide thiazide De Dios in the Spi rit morning - [facility] Metformin Metformin Yes Carlos 1 tablet Common HCl HCl De Dios with a Spirit meal - [facility] Metformin Metformin No 1{table QD Metformin HCl 500 MG HCl 500 MG t_with_ HCl 500 MG a_meal} Hydrochloro Hydrochloro No 1{table QD Hydrochlor thiazide 25 thiazide 25 t_in_th othiazide MG MG e_morni 25 MG ng} Allopurinol Allopurinol No 1{table QD Allopurino 300 MG 300 MG t} l 300 MG Multi Multi No 1{table QD Multi Vitamin Vitamin t} Vitamin Daily - Daily - Daily - Lantus 100 Lantus 100 No Lantus 100 UNIT/ML UNIT/ML UNIT/ML Rosuvastati Rosuvastati No 1{table QD Rosuvastat n Calcium n Calcium t} in Calcium 40 MG 40 MG 40 MG Docusate Docusate No 1{capsu QD Docusate Calcium 240 Calcium 240 le_as_n Calcium MG MG eeded} 240 MG Pioglitazon Pioglitazon No 1{table QD Pioglitazo e HCl 15 MG e HCl 15 MG t} ne HCl 15 MG Allopurinol Allopurinol No 1{table QD Allopurino 300 MG 300 MG t} l 300 MG Docusate Docusate No 1{capsu QD Docusate Calcium 240 Calcium 240 le_as_n Calcium MG MG eeded} 240 MG Lantus 100 Lantus 100 No Lantus 100 UNIT/ML UNIT/ML UNIT/ML Hydrochloro Hydrochloro No 1{table QD Hydrochlor thiazide 25 thiazide 25 t_in_th othiazide MG MG e_morni 25 MG ng} Rosuvastati Rosuvastati No 1{table QD Rosuvastat n Calcium n Calcium t} in Calcium 40 MG 40 MG 40 MG Metformin Metformin No 1{table QD Metformin HCl 500 MG HCl 500 MG t_with_ HCl 500 MG a_meal} Multi Multi No 1{table QD Multi Vitamin Vitamin t} Vitamin Daily - Daily - Daily - Rosuvastati Rosuvastati No 1{table QD Rosuvastat n Calcium n Calcium t} in Calcium 40 MG 40 MG 40 MG Lantus 100 Lantus 100 No Lantus 100 UNIT/ML UNIT/ML UNIT/ML Metformin Metformin No 1{table QD Metformin HCl 500 MG HCl 500 MG t_with_ HCl 500 MG a_meal} Hydrochloro Hydrochloro No 1{table QD Hydrochlor thiazide 25 thiazide 25 t_in_th othiazide MG MG e_morni 25 MG ng} Pioglitazon Pioglitazon No 1{table QD Pioglitazo e HCl 15 MG e HCl 15 MG t} ne HCl 15 MG Docusate Docusate No 1{capsu QD Docusate Calcium 240 Calcium 240 le_as_n Calcium MG MG eeded} 240 MG Multi Multi No 1{table QD Multi Vitamin Vitamin t} Vitamin Daily - Daily - Daily - Allopurinol Allopurinol No 1{table QD Allopurino 300 MG 300 MG t} l 300 MG Pioglitazon Pioglitazon No 1{table QD Pioglitazo e HCl 15 MG e HCl 15 MG t} ne HCl 15 MG Immunizations Ordered Immunization Filled Immunization Date Status Commen ts Source Name Name influenza virus 2022-06-14 Completed [facility] vaccine, inactivated 00:00:00 Herm selin influenza virus 2022-06-14 Completed [facility] vaccine, inactivated 00:00:00 Herm selin influenza virus 2021-08-14 Completed [facility] vaccine, inactivated 00:00:00 Herm selin influenza virus 2021-08-14 Completed [facility] vaccine, inactivated 00:00:00 Herm selin influenza virus 2020-06-25 Completed [facility] vaccine, 00:00:00 [place] inactivated<sup>1</s up> influenza virus 2020-06-25 Completed [facility] vaccine, 00:00:00 Jonn inactivated<sup>1</s up> pneumococcal 2019-08-04 Completed [facility] 23-valent 18:47:00 Jonn vaccine<sup>1</sup> pneumococcal 2019-08-04 Completed [facility] 23-valent 18:47:00 Jonn vaccine<sup>4</sup> pneumococcal 2019-08-04 Completed [facility] 23-valent 18:47:00 Jonn vaccine<sup>1</sup> pneumococcal 2019-08-04 Completed [facility] 23-valent 18:47:00 Jonn vaccine<sup>4</sup> Hx influenza 2019-07-12 Completed [facility] vaccine-unspecified 00:00:00 Teresa nn Hx influenza 2019-07-12 Completed [facility] vaccine-unspecified 00:00:00 Teresa nn pneumococcal 2018-08-04 Completed [facility] 13-valent 18:15:00 Jonn vaccine<sup>2</sup> pneumococcal 2018-08-04 Completed [facility] 13-valent 18:15:00 [place] vaccine<sup>1</sup> pneumococcal 2018-08-04 Completed [facility] 13-valent 18:15:00 [place] vaccine<sup>5</sup> pneumococcal 2018-08-04 Completed [facility] 13-valent 18:15:00 [place] vaccine<sup>2</sup> pneumococcal 2018-08-04 Completed [facility] 13-valent 18:15:00 Jonn vaccine<sup>5</sup> pneumococcal 2018-08-04 Completed [facility] 13-valent 18:15:00 [place] vaccine<sup>1</sup> influenza virus 2018-06-12 Completed [facility] vaccine, live, 00:00:00 Jonn trivalent influenza virus 2018-06-12 Completed [facility] vaccine, live, 00:00:00 [place] trivalent influenza virus 2015-07-24 Completed [facility] vaccine, 17:33:00 Jonn inactivated<sup>3</s up> influenza virus 2015-07-24 Completed [facility] vaccine, 17:33:00 [place] inactivated<sup>1</s up> influenza virus 2015-07-24 Completed [facility] vaccine, 17:33:00 [place] inactivated<sup>2</s up> influenza virus 2015-07-24 Completed [facility] vaccine, 17:33:00 Jonn inactivated<sup>3</s up> influenza virus 2015-07-24 Completed [facility] vaccine, 17:33:00 Jonn inactivated<sup>2</s up> influenza virus 2015-07-24 Completed [facility] vaccine, 17:33:00 [place] inactivated<sup>1</s up> influenza virus 2013-07-04 Completed [facility] vaccine, 05:00:00 Jonn inactivated<sup>4</s up> influenza virus 2013-07-04 Completed [facility] vaccine, 05:00:00 Jonn inactivated<sup>2</s up> influenza virus 2013-07-04 Completed [facility] vaccine, 05:00:00 [place] inactivated<sup>3</s up> influenza virus 2013-07-04 Completed [facility] vaccine, 05:00:00 [place] inactivated<sup>4</s up> influenza virus 2013-07-04 Completed [facility] vaccine, 05:00:00 [place] inactivated<sup>3</s up> influenza virus 2013-07-04 Completed [facility] vaccine, 05:00:00 [place] inactivated<sup>2</s up> Vital Signs Vital Name Observation Time Observation Value Comments Source Systolic blood 2022-07-15 14:35:00 106 mm[Hg] [facility] Diastolic blood 2022-07-15 14:35:00 73 mm[Hg] Unive rsity of [facility] Heart rate 2022-07-15 14:35:00 121 /min [facility] Body temperature 2022-07-15 14:35:00 39.61 [facility] 2022-07-15 14:35:00 18 /min [facility] Body height 2022-07-15 14:35:00 188 cm [facility] Body weight 2022-07-15 14:35:00 111.948 kg [facility] BMI 2022-07-15 14:35:00 31.69 kg/m2 [facility] Oxygen saturation in 2022-07-15 14:35:00 95 /min [facility] Arterial blood by [facility] Pulse oximetry Branch height 2020-11-15 10:00:00 74 [in_i] Common [facility] weight 2020-11-15 10:00:00 208.2 [lb_av] Common [facility] temperature 2020-11-15 10:00:00 98.4 [degF] Common [facility] bmi 2020-11-15 10:00:00 26.73 kg/m2 [facility] oximetry 2020-11-15 10:00:00 99 % Common S pirit [facility] blood pressure 2020-11-15 10:00:00 129 mm[Hg] Common [facility] - systolic [facility] blood pressure 2020-11-15 10:00:00 74 mm[Hg] Common [facility] - diastolic [facility] height 2020-11-07 15:30:00 74 [in_i] Common [facility] weight 2020-11-07 15:30:00 213.0 [lb_av] Common [facility] - [facility] temperature 2020-11-07 15:30:00 98.3 [degF] [facility] bmi 2020-11-07 15:30:00 27.34 kg/m2 Common S [facility] oximetry 2020-11-07 15:30:00 96 % Common S [facility] blood pressure 2020-11-07 15:30:00 104 mm[Hg] Common Spirit - systolic [facility] blood pressure 2020-11-07 15:30:00 62 mm[Hg] Common [facility] - diastolic [facility] height 2020-11-06 08:30:00 74 [in_i] Common [facility] weight 2020-11-06 08:30:00 213.0 [lb_av] [facility] temperature 2020-11-06 08:30:00 97.6 [degF] Common [facility] bmi 2020-11-06 08:30:00 27.34 kg/m2 Common [facility] oximetry 2020-11-06 08:30:00 97 % Common [facility] blood pressure 2020-11-06 08:30:00 119 mm[Hg] Common [facility] - systolic [facility] blood pressure 2020-11-06 08:30:00 77 mm[Hg] Common [facility] - diastolic [facility] Systolic blood 2020-04-21 17:41:00 112 mm[Hg] [facility]iver [facility] Diastolic blood 2020-04-21 17:41:00 74 mm[Hg] Unive rs[facility] Heart rate 2020-04-21 17:41:00 98 /min [facility] Body temperature 2020-04-21 17:41:00 36.56 Ju Univ [facility] Respiratory rate 2020-04-21 17:41:00 20 /min Univ [facility] Body height 2020-04-21 17:41:00 188 cm [facility] Body weight 2020-04-21 17:41:00 97.523 kg [facility] BMI 2020-04-21 17:41:00 27.60 kg/m2 [facility] Oxygen saturation in 2020-04-21 17:41:00 97 /min University of Arterial blood by [facility] Pulse oximetry Branch Systolic blood 2020-04-21 17:41:00 112 mm[Hg] Univer sity of pressure [facility] Diastolic blood 2020-04-21 17:41:00 74 mm[Hg] Unive rsity of pressure [facility] Heart rate 2020-04-21 17:41:00 98 /min Universi ty of [facility] Body temperature 2020-04-21 17:41:00 36.56 Ju Univ ersity of [facility] Respiratory rate 2020-04-21 17:41:00 20 /min Univ ersity of [facility] Body height 2020-04-21 17:41:00 188 cm Universi ty of [facility] Body weight 2020-04-21 17:41:00 97.523 kg Universi ty [facility] BMI 2020-04-21 17:41:00 27.60 kg/m2 Universi ty [facility] Oxygen saturation in 2020-04-21 17:41:00 97 /min University of Arterial blood by [facility] Pulse oximetry Branch Heart Rate 2022-09-25 18:56:00 [facility] [place]n Systolic (mm Hg) 2022-09-25 18:56:00 Jose rial Jonn Diastolic (mm Hg) 2022-09-25 18:56:00 Mem orial Jonn Height 2022-09-25 18:56:00 6 [ft_i] [facility] Jonn Weight 2022-09-25 18:56:00 [facility] Jonn BMI Calculated 2022-09-25 18:56:00 Memori al [place] Temperature Oral (F) 2022-06-27 15:23:00 97.8 F [facility] Jonn Heart Rate 2022-06-27 15:23:00 [facility] [place]n Systolic (mm Hg) 2022-06-27 15:23:00 Jose rial Jonn Diastolic (mm Hg) 2022-06-27 15:23:00 Mem orial [place]n Height 2022-06-27 15:23:00 187.96 cm [facility] Jonn Weight 2022-06-27 15:23:00 [facility] [place] BMI Calculated 2022-06-27 15:23:00 Memori al Jonn Temperature Oral (F) 2022-03-21 16:32:00 98.3 F [facility] Jonn Heart Rate 2022-03-21 16:32:00 [facility] [place]n Systolic (mm Hg) 2022-03-21 16:32:00 Jsoe rial [place] Diastolic (mm Hg) 2022-03-21 16:32:00 Mem orial [place] Height 2022-03-21 16:32:00 187.96 cm Memorial [place] Weight 2022-03-21 16:32:00 [facility] [place] BMI Calculated 2022-03-21 16:32:00 Memori al Jonn Height 2021-11-21 19:29:00 187.96 cm [facility] [place] Weight 2021-11-21 19:29:00 [facility] Jonn BMI Calculated 2021-11-21 19:29:00 Memori al [place] Temperature Oral (F) 2021-11-21 19:29:00 98 F [facility] [place] Heart Rate 2021-11-21 19:29:00 [facility] [place]n Systolic (mm Hg) 2021-11-21 19:29:00 Jose rial Jonn Diastolic (mm Hg) 2021-11-21 19:29:00 Mem orial [place] Heart Rate 2021-08-08 18:14:00 Memorial [place] Systolic (mm Hg) 2021-08-08 18:14:00 Jose rial [place] Diastolic (mm Hg) 2021-08-08 18:14:00 Mem orial Jonn Height 2021-08-08 18:14:00 187.96 cm [facility] [place] Weight 2021-08-08 18:14:00 [facility] [place] BMI Calculated 2021-08-08 18:14:00 Memori al [place]n Systolic (mm Hg) 2021-08-08 16:12:00 Jose rial [place] Diastolic (mm Hg) 2021-08-08 16:12:00 Mem orial [place] Heart Rate 2021-08-08 16:12:00 [facility] [place] Temperature Oral (F) 2021-08-08 16:12:00 98 F [facility] Jonn Height 2021-08-08 16:12:00 187.96 cm [facility] [place]n Weight 2021-08-08 16:12:00 [facility] [place] BMI Calculated 2021-08-08 16:12:00 Memori al [place] Systolic (mm Hg) 2021-05-01 16:23:00 Jose rial Jonn Diastolic (mm Hg) 2021-05-01 16:23:00 Mem orial [place]n Heart Rate 2021-05-01 16:23:00 [facility] [place] Temperature Oral (F) 2021-05-01 16:23:00 98 F [facility] [place] Height 2021-05-01 16:23:00 187.96 cm [facility] Jonn Weight 2021-05-01 16:23:00 [facility] [place] BMI Calculated 2021-05-01 16:23:00 Memori al [place] Systolic (mm Hg) 2021-02-05 18:04:00 Jose rial Jonn Diastolic (mm Hg) 2021-02-05 18:04:00 Mem orial [place] Heart Rate 2021-02-05 18:04:00 Memorial [place] Height 2021-02-05 18:04:00 187.96 cm [facility] [place] Weight 2021-02-05 18:04:00 [facility] [place] BMI Calculated 2021-02-05 18:04:00 Memori al [place] Systolic (mm Hg) 2021-01-23 19:44:00 Jose rial Jonn Diastolic (mm Hg) 2021-01-23 19:44:00 Mem orial [place]n Heart Rate 2021-01-23 19:44:00 Memorial [place] Height 2021-01-23 19:44:00 187.96 cm [facility] [place]n Weight 2021-01-23 19:44:00 [facility] [place] BMI Calculated 2021-01-23 19:44:00 Memori al [place] Height 2020-12-31 18:02:00 187.96 cm [facility] [place]n Weight 2020-12-31 18:02:00 [facility] [place] BMI Calculated 2020-12-31 18:02:00 Memori al [place] Systolic (mm Hg) 2020-12-31 18:02:00 Jose rial [place] Diastolic (mm Hg) 2020-12-31 18:02:00 Mem orial [place] Heart Rate 2020-12-31 18:02:00 [facility] [place] Temperature Oral (F) 2020-12-31 18:02:00 98.0 F [facility] [place] Systolic (mm Hg) 2020-12-05 15:44:00 Jose rial [place] Diastolic (mm Hg) 2020-12-05 15:44:00 Mem orial Jonn Heart Rate 2020-12-05 15:44:00 Memorial [place] Height 2020-12-05 15:44:00 187.96 cm [facility] [place]n Weight 2020-12-05 15:44:00 [facility] [place] BMI Calculated 2020-12-05 15:44:00 Memori al [place] Systolic (mm Hg) 2020-11-20 15:56:00 Jose rial Jonn Diastolic (mm Hg) 2020-11-20 15:56:00 Mem orial Jonn Heart Rate 2020-11-20 15:56:00 [facility] [place] Height 2020-11-20 15:56:00 187.96 cm [facility] [place] Weight 2020-11-20 15:56:00 [facility] [place] BMI Calculated 2020-11-20 15:56:00 Memori al [place] Systolic (mm Hg) 2020-10-03 17:21:00 Jose rial [place] Diastolic (mm Hg) 2020-10-03 17:21:00 Mem orial [place] Heart Rate 2020-10-03 17:21:00 [facility] [place] Temperature Oral (F) 2020-10-03 17:21:00 97.8 F [facility] [place] Height 2020-10-03 17:21:00 187.96 cm [facility] [place]n Heart Rate 2020-08-20 20:37:00 [facility] [place] Systolic (mm Hg) 2020-08-20 19:58:00 Jose rial [place] Diastolic (mm Hg) 2020-08-20 19:58:00 Mem orial [place] Heart Rate 2020-08-20 19:58:00 [facility] [place] Temperature Oral (F) 2020-08-20 19:58:00 97.6 F [facility] [place]n Height 2020-08-20 19:58:00 187.96 cm [facility] [place] Weight 2020-08-20 19:58:00 [facility] [place] BMI Calculated 2020-08-20 19:58:00 Memori al [place] Systolic (mm Hg) 2020-03-20 16:05:00 Jose rial [place] Diastolic (mm Hg) 2020-03-20 16:05:00 Mem orial Jonn Heart Rate 2020-03-20 16:05:00 [facility] [place] Temperature Oral (F) 2020-03-20 16:05:00 97.7 F [facility] [place] Height 2020-03-20 16:05:00 187.96 cm [facility] [place] Weight 2020-03-20 16:05:00 [facility] [place] BMI Calculated 2020-03-20 16:05:00 Memori al [place] Systolic (mm Hg) 2019-12-15 17:19:00 Jose rial Jonn Diastolic (mm Hg) 2019-12-15 17:19:00 Mem orial [place] Heart Rate 2019-12-15 17:19:00 [facility] [place] Temperature Oral (F) 2019-12-15 17:19:00 97.4 F [facility] [place] Height 2019-12-15 17:19:00 187.96 cm [facility] [place] Weight 2019-12-15 17:19:00 [facility] [place] BMI Calculated 2019-12-15 17:19:00 Memori al [place] Systolic (mm Hg) 2019-11-11 16:54:00 Jose rial [place] Diastolic (mm Hg) 2019-11-11 16:54:00 Mem orial Jonn Heart Rate 2019-11-11 16:54:00 [facility] [place] Temperature Oral (F) 2019-11-11 16:54:00 97.7 F [facility] [place] Height 2019-11-11 16:54:00 187.96 cm [facility] [place] Weight 2019-11-11 16:54:00 [facility] [place] BMI Calculated 2019-11-11 16:54:00 Memori al [place] Systolic (mm Hg) 2019-08-04 16:02:00 Jose rial [place] Diastolic (mm Hg) 2019-08-04 16:02:00 Mem orial [place]n Heart Rate 2019-08-04 16:02:00 [facility] [place] Temperature Oral (F) 2019-08-04 16:02:00 97.5 F [facility] [place] Height 2019-08-04 16:02:00 185.42 cm [facility] [place] Weight 2019-08-04 16:02:00 [facility] [place] BMI Calculated 2019-08-04 16:02:00 Memori al Jonn BMI Calculated 2019-03-22 16:02:00 Memori al [place] Weight 2019-03-22 16:02:00 [facility] [place] Height 2019-03-22 16:02:00 185.42 cm [facility] [place] Heart Rate 2019-03-22 16:02:00 [facility] [place] Temperature Oral (F) 2019-03-22 16:02:00 97.6 F [facility] [place] Systolic (mm Hg) 2019-03-22 16:02:00 Jose rial Jonn Diastolic (mm Hg) 2019-03-22 16:02:00 Mem orial [place] Height 2018-12-09 17:20:00 185.42 cm [facility] [place] BMI Calculated 2018-12-09 17:20:00 Memori al [place] Weight 2018-12-09 17:20:00 [facility] [place] Temperature Oral (F) 2018-12-09 17:20:00 97.8 F [facility] [place] Heart Rate 2018-12-09 17:20:00 [facility] [place] Systolic (mm Hg) 2018-12-09 17:20:00 Jose rial [place] Diastolic (mm Hg) 2018-12-09 17:20:00 Mem orial Jonn BMI Calculated 2018-08-04 16:15:00 Memori al [place] Weight 2018-08-04 16:15:00 [facility] [place] Height 2018-08-04 16:15:00 185.42 cm [facility] [place] Heart Rate 2018-08-04 16:15:00 [facility] [place] Temperature Oral (F) 2018-08-04 16:15:00 98.0 F [facility] [place] Systolic (mm Hg) 2018-08-04 16:15:00 Jose rial Jonn Diastolic (mm Hg) 2018-08-04 16:15:00 Mem orial [place] Height 2018-04-07 15:06:00 185.42 cm [facility] [place] Weight 2018-04-07 15:06:00 [facility] [place] BMI Calculated 2018-04-07 15:06:00 Memori al [place] Heart Rate 2018-04-07 15:06:00 [facility] [place] Temperature Oral (F) 2018-04-07 15:06:00 97.6 F [facility] [place] Systolic (mm Hg) 2018-04-07 15:06:00 Jose rial [place] Diastolic (mm Hg) 2018-04-07 15:06:00 Mem orial Jonn Weight 2018-01-04 15:26:00 [facility] [place] BMI Calculated 2018-01-04 15:26:00 Bronsonori al Jonn Height 2018-01-04 15:26:00 185.42 cm [facility] Systolic (mm Hg) 2018-01-04 15:26:00 Jose rial [place] Diastolic (mm Hg) 2018-01-04 15:26:00 Mem orial Jonn Heart Rate 2018-01-04 15:26:00 [facility] [place] Temperature Oral (F) 2018-01-04 15:26:00 97.1 F [facility] [place] Height 2017-09-29 17:17:00 185.42 cm [facility] [place] BMI Calculated 2017-09-29 17:17:00 Bronsonori al Jonn Weight 2017-09-29 17:17:00 [facility] [place] Heart Rate 2017-09-29 17:17:00 [facility] [place] Temperature Oral (F) 2017-09-29 17:17:00 98.0 F [facility] [place] Systolic (mm Hg) 2017-09-29 17:17:00 Jose rial Jonn Diastolic (mm Hg) 2017-09-29 17:17:00 Mem orial [place] Procedures Procedure Date / Time Performing Clinician Source Performed Colonoscopy- repeat 2022-09-15 06:00:00 Torie Lunsford 10/04<sup>1, 2</sup> POCT MOLECULAR FLU 2022-07-15 14:35:00 Pao Morgan [facility] ASSIGNMENT OF BENEFITS 2022-07-15 14:11:16 Doctor Unassigned, No General acute hospital POCT SARS-COV-2 ANTIGEN 2022-07-15 00:00:00 Pao Morgan [facility] ([facility]) [facility] Diabetic retinal eye 2022-02-26 05:00:00 Chante miner Jonn exam<sup>3, 4</sup> Measurement of 2021-08-08 18:00:00 Torie martins post-voiding residual urine and/or bladder capacity by ultrasound, non-imaging ASSIGNMENT OF BENEFITS 2021-06-07 16:13:20 Doctor Unassigned, No General acute hospital Diabetic retinal eye 2020-12-24 05:00:00 Chante l Jonn exam<sup>1</sup> Procedure<sup>5</sup> 2020-12-03 06:00:00 Chidi Ruth Diabetic retinal eye 2019-10-12 00:00:00 Chante Lunsford exam<sup>6</sup> Colonoscopy<sup>5</sup> 2012-06-12 05:00:00 [facility] Start End Encounter Admission Attending Care Care Encounter Source Date/Time Date/Time Type Type Clinicians Facility Department ID 2022-09-24 Outpatient [facility] [id number] [place] 16:09:31 [id number] [facility] 2022-08-05 Outpatient [facility] [id number] [place] 15:29:23 [id number] [facility] 2022-07-29 Outpatient [facility] [id number] [place] 15:15:32 [id number] [facility] 2022-07-01 Outpatient [facility] [id number] [place] 17:02:06 [id number] [facility] 2021-11-06 Outpatient [facility] [id number] Common 12:24:38 [id number] [facility] 2023-01-09 2023-01-09 Outpatient MHIE MHIE [id number] Memoria 10:00:00 10:00:00 50 kristofer Jonn 2023-01-02 2023-01-02 Outpatient MHIE MHIE [id number] Memoria 09:45:00 09:45:00 50 kristofer Jonn 2022-09-25 2022-09-26 Outpatient MHIE MHMG [id number] Memoria 19:00:00 05:59:59 Internal 48 l Medicine Jonn Jackson 2022-09-25 2022-09-25 [id number] 13:00:00 23:59:59 Anyiah 48 Hernandez 2022-09-25 2022-09-25 Ambulatory MHIE MHMG [id number] Memoria 20:40:00 20:40:00 Pre-Reg Internal 47 l Medicine Jonn Jackson 2022-09-25 2022-09-25 Outpatient MHIE MHIE [id number] Memoria 14:40:00 14:40:00 48 kristofer Lunsford 2022-09-25 2022-09-25 Outpatient MHIE MHIE [id number] Memoria 14:40:00 14:40:00 47 kristofer Lunsford 2022-09-25 2022-09-25 Outpatient Rafia [facility] [id number] 14:40:00 14:40:00 Aniyah Hernandez 2022-09-25 2022-09-25 Outpatient IE IE [id number] Memoria 13:00:00 13:00:00 49 kristofer Lunsford 2022-09-15 2022-09-15 Outpatient YASMEEN [facility] [id number] [place] 08:00:00 08:00:00 [facility] 2022-07-15 2022-07-15 [facility] [id number] Univers 09:20:00 10:03:51 [facility] 2022-07-15 Urgent Carrie Montiel [facility] 1.2.840. 114 [id number] Univers 09:20:00 10:03:51 [facility] 350.1.13.10 ity of [place] 4.2.7.2.686 Oseas as YOSEF?BLEA [phone] [address] MEDICAL OFFICE BUILDING 2022-07-15 2022-07-15 Orders Doctor IMER 1.2.840.114 [id number] Univers 00:00:00 00:00:00 Only Unassigned, MARIFER 350.1.13.10 ity of Eleva [facility] 4.2.7.2.686 Oseas as [phone] [address] 2022 2022-07-02 Phone nullFlavo [facility] [id number] Memoria 18:36:03 04:59:59 Message r Internal 16 l [facility] [place] 2022 2022-07-02 Phone nullFlavo [facility] [id number] Memoria 18:36:03 04:59:59 Message r Internal 16 l Medicine Jonn Reaberg 2022 2022-07-01 Outpatient [facility] [id number] 13:36:03 23:59:59 16 2022-06-27 2022-06-28 Outpatient nullFlavo [facility] [id number] Memoria 15:20:00 04:59:59 r Internal 46 l Medicine [facility] 2022-06-27 2022-06-28 Outpatient nullFlavo [facility] [id number] Memoria 15:20:00 04:59:59 r Internal 46 l Medicine [facility] 2022-06-27 2022-06-27 Outpatient Rafia [facility] [id number] 10:20:00 23:59:59 Aniyah 46 Hernandez 2022-06-27 2022-06-27 Ambulatory nullFlavo [facility] [id number] Memoria 16:00:00 16:00:00 Pre-Reg r Internal 45 l Medicine [facility] 2022-06-27 2022-06-27 Ambulatory nullFlavo [facility] [id number] Memoria 16:00:00 16:00:00 Pre-Reg r Internal 45 l Medicine [facility] 2022-06-27 2022-06-27 Outpatient MHIE SIMONEIE [id number] Memoria 11:00:00 11:00:00 45 [place] 2022-06-27 2022-06-27 [facility] [id number] 11:00:00 11:00:00 Aniyah 45 Hernanedz 2022-06-27 2022-06-27 Outpatient SIMONEIE SIMONEIE [id number] Memoria 10:20:00 10:20:00 47 kristofer Lunsford 2022-03-21 2022-03-22 Outpatient nullFlavo [facility] [id number] Memoria 16:20:00 04:59:59 r Internal 44 l Medicine [facility] 2022-03-21 2022-03-22 Outpatient nullFlavo [facility] [id number] Memoria 16:20:00 04:59:59 r Internal 44 l Medicine [facility] 2022-03-21 2022-03-21 [facility] [id number] 11:20:00 23:59:59 Aniyah 44 Hernandez 2022-03-21 2022-03-21 Outpatient MHIE SIMONEIE [id number] Memoria 11:20:00 11:20:00 44 kristofer Lunsford 2022-02-03 2022-02-05 Phone nullFlavo [facility] [id number] Memoria 19:11:09 04:59:59 Message r Internal 15 l Medicine Jonn Reaberg 2022-02-03 2022-02-05 Phone nullFlavo MG [id number] Memoria 19:11:09 04:59:59 Message r Internal 15 l Medicine Jonn Reaberg 2022-02-03 2022-02-04 Outpatient MG MG [id number] 14:11:09 23:59:59 15 2021-11-21 2021-11-22 [place] [id number] Memoria 19:20:00 05:59:59 r Internal 43 l [facility] Jonn [place] 2021-11-21 2021-11-22 [place] [id number] Memoria 19:20:00 05:59:59 r Internal 43 l [facility] Jonn [place] 2021-11-21 2021-11-21 Outpatient Rafia [facility] [id number] 13:20:00 23:59:59 Aniyah Segundogel 2021-11-21 2021-11-21 Outpatient IE IE [id number] Memoria 13:20:00 13:20:00 43 l [place] 2021-11-13 2021-11-13 [place] [id number] Memoria 17:00:00 17:00:00 Pre-Reg r Internal 42 l [facility] [place] 2021-11-13 2021-11-13 [place] [id number] Memoria 17:00:00 17:00:00 Pre-Reg r Internal 42 l [facility] [place] 2021-11-13 2021-11-13 Outpatient IE IE [id number] Memoria 11:00:00 11:00:00 42 l [place] 2021-11-13 2021-11-13 [id number] 11:00:00 11:00:00 Aniyah Hernandez 2021-09-20 2021-09-22 Phone nullFlavo MG [id number] Memoria 19:38:57 05:59:59 Message r Internal 14 l [facility] Jonn [place] 2021-09-20 2021-09-22 Phone nullFlavo MG [id number] Memoria 19:38:57 05:59:59 Message r Internal 14 l Medicine Jonn [place] 2021-09-20 2021-09-21 Outpatient MG [facility] [id number] 13:38:57 23:59:59 14 2021-08-08 2021-08-09 [place] [id number] Memoria 18:00:00 04:59:59 r Urology 41 l [place] [facility] 2021-08-08 2021-08-09 [place] [id number] Memoria 18:00:00 04:59:59 r Urology 41 l [place] [facility] 2021-08-08 2021-08-09 Outpatient nullFlavo [facility] [id number] Memoria 16:00:00 04:59:59 r Internal 38 l Medicine Jonn Jackson 2021-08-08 2021-08-09 Outpatient nullFlavo [facility] [id number] Memoria 16:00:00 04:59:59 r Internal 38 l [facility] Jonn Jackson 2021-08-08 2021-08-08 Outpatient [facility] [id number] 13:00:00 23:59:59 , Stuart 41 Noel 2021-08-08 2021-08-08 Outpatient [facility], [facility] [id number] 11:00:00 23:59:59 Aniyah 38 David 2021-08-08 2021-08-08 Outpatient MHIE MHIE [id number] Memoria 13:00:00 13:00:00 41 l Jonn 2021-08-08 2021-08-08 Outpatient MHIE MHIE [id number] Memoria 11:00:00 11:00:00 38 l Jonn 2021-07-22 2021-07-22 Ambulatory nullFlavo [facility] [id number] Memoria 19:00:00 19:00:00 Pre-Reg r Internal 39 l Medicine Jonn Jackson 2021-07-22 2021-07-22 Ambulatory nullFlavo [facility] [id number] Memoria 19:00:00 19:00:00 Pre-Reg r Internal 39 l Medicine Jonn Jackson 2021-07-22 2021-07-22 Outpatient MHIE MHIE [id number] Memoria 14:00:00 14:00:00 39 l Jonn 2021-07-22 2021-07-22 Outpatient [facility] [id number] 14:00:00 14:00:00 39 2021-06-10 2021-06-11 Outpatient nullFlavo [facility] [id number] Memoria 19:20:00 04:59:59 r Internal 40 l Medicine Jonn [place] 2021-06-10 2021-06-11 Outpatient nullFlavo [facility] [id number] Memoria 19:20:00 04:59:59 r Internal 40 l Medicine [place] 2021-06-10 2021-06-10 Outpatient Rafia [facility] [id number] 14:20:00 23:59:59 Aniyah 40 Hernandez 2021-06-10 2021-06-10 Outpatient [facility] [id number] Memoria 14:20:00 14:20:00 40 kristofer Lunsford 2021-06-10 2021-06-10 Letter IMER Richter 1.2.840.114 [id number] Univers 00:00:00 00:00:00 (Out) Dominique CAICEDO 350.1.13.10 it y of [facility] 4.2.7.2.686 Oseas as [phone] [address] 2021-06-07 2021-06-07 Laboratory Only, Ang Db Test [facility] 1.2.8 40.114 [id number] Univers 11:13:41 11:23:41 Only Frantz [facility] 350.1.13.10 ity [facility] 4.2.7.2.686 Oseas as Yosef?Blea [phone] [address] Medical Office Building 2021-06-07 2021-06-07 Outpatient Phillip MARINO [facility] [id number] Univers 11:15:00 11:15:00 JESSIE ity [facility] 2021-06-07 2021-06-07 Orders Doctor WILLAMS 1.2.840.114 [id number] Univers 00:00:00 00:00:00 Only Unassigned, MARIFER 350.1.13.10 ity of Ele[place] [facility] 4.2.7.2.686 Oseas as [phone] [address] 2021-05-01 2021-05-02 [place] [id number] Memoria 16:00:00 04:59:59 r Internal 34 l Medicine Jonn Reaberg 2021-05-01 2021-05-02 [place] [id number] Memoria 16:00:00 04:59:59 r Internal 34 l [facility] Jonn Jackson 2021-05-01 2021-05-01 Outpatient Rafia, [facility] [id number] 11:00:00 23:59:59 Aniyah 34 David 2021-05-01 2021-05-01 Outpatient MHIE MHIE [id number] Memoria 11:00:00 11:00:00 34 l [place] 2021-04-29 2021-04-29 Ambulatory nullFlavo [facility] [id number] Memoria 19:00:00 19:00:00 Pre-Reg r Internal 35 l [facility] [place] 2021-04-29 2021-04-29 Ambulatory nullFlavo [facility] [id number] Memoria 19:00:00 19:00:00 Pre-Reg r Internal 35 l Medicine Jonn Reaberg 2021-04-29 2021-04-29 Outpatient MHIE MHIE [id number] Memoria 14:00:00 14:00:00 35 l Jonn 2021-04-29 2021-04-29 [facility] [id number] 14:00:00 14:00:00 35 2021-02-13 2021-02-15 Phone nullFlavo MG [id number] Memoria 16:21:36 04:59:59 Message r Internal 13 l Medicine Jonn [place]aberg 2021-02-13 2021-02-15 Phone nullFlavo MG [id number] Memoria 16:21:36 04:59:59 Message r Internal 13 l Medicine Jonn [place] 2021-02-13 2021-02-14 [facility] [id number] 11:21:36 23:59:59 13 2021-02-05 2021-02-06 [place] [id number] Memoria 18:15:00 04:59:59 r Urology 37 l [place] [facility] 2021-02-05 2021-02-06 Outpatient nullFlavo [facility] [id number] Memoria 18:15:00 04:59:59 r Urology 37 l [place] [facility] 2021-02-05 2021-02-05 Outpatient Scott, [facility] [id number] 13:15:00 23:59:59 Marty 37 [place] 2021-02-05 2021-02-05 Outpatient MHIE OLEG [id number] Memoria 13:15:00 13:15:00 37 kristofer Lunsford 2021-01-25 2021-01-26 Outpatient nullFlavo [facility] [id number] Memoria 14:30:00 04:59:59 r Urology 36 l [place] [facility] 2021-01-25 2021-01-26 Outpatient nullFlavo [facility] [id number] Memoria 14:30:00 04:59:59 r Urology 36 l [place] [facility] 2021-01-25 2021-01-25 Outpatient Scott, [facility] [id number] 09:30:00 23:59:59 Marty 36 [place] 2021-01-25 2021-01-25 Outpatient OLEG DEJESUS [id number] Memoria 09:30:00 09:30:00 36 kristofer Lunsford 2021-01-23 2021-01-24 Outpatient nullFlavo [facility] [id number] Memoria 20:00:00 04:59:59 r Urology 33 l [place] [facility] 2021-01-23 2021-01-24 Outpatient nullFlavo [facility] [id number] Memoria 20:00:00 04:59:59 r Urology 33 l [place] [facility] 2021-01-23 2021-01-23 [facility]ucher[facility] [id number] 15:00:00 23:59:59 Marty 33 [place] 2021-01-23 2021-01-23 Outpatient MHIE OLEG [id number] Memoria 15:00:00 15:00:00 33 kristofer Lunsford 2020-12-31 2021-01-02 Phone nullFlavo [facility] [id number] Memoria 14:15:41 04:59:59 Message r Internal 12 l Yasmine Jackson 2020-12-31 2021-01-02 Phone nullFlavo [facility] [id number] Memoria 14:15:41 04:59:59 Message r Internal 12 l [facility] [place] 2020-12-31 2021-01-01 Outpatient [facility] [id number] 09:15:41 23:59:59 12 2020-12-31 2021-01-01 [place] [id number] Memoria 18:00:00 04:59:59 r Internal 29 l [facility] [place] 2020-12-31 2021-01-01 [place] [id number] Memoria 18:00:00 04:59:59 r Internal 29 l [facility] 2020-12-31 2020-12-31 Outpatient Rafia, [facility] [id number] 13:00:00 23:59:59 Aniyah 29 Hernandez 2020-12-31 2020-12-31 [facility] [id number] Memoria 13:00:00 13:00:00 29 l [place] 2020-12-25 2020-12-25 Ambulatory nullFlavo [facility] [id number] Memoria 13:45:00 13:45:00 Pre-Reg r Internal 30 l [facility] 2020-12-25 2020-12-25 Ambulatory nullFlavo [facility] [id number] Memoria 13:45:00 13:45:00 Pre-Reg r Internal 30 l [facility] 2020-12-25 2020-12-25 [facility] [id number] Memoria 08:45:00 08:45:00 30 [facility] 2020-12-25 2020-12-25 Outpatient [facility] [id number] 08:45:00 08:45:00 30 2020-12-05 2020-12-06 [place] [id number] Memoria 16:15:00 05:59:59 r Urology 32 l [place] [facility] 2020-12-05 2020-12-06 [place] [id number] Memoria 16:15:00 05:59:59 r Urology 32 l [place] [facility] 2020-12-052020-12-06 Outpt Diag nullFlavo [facility] [id number] Memoria 16:58:00 05:59:00 Services r Outpatient 05 l Imaging Jonn [place] 2020-12-05 2020-12-06 Outpt Diag nullFlavo [facility] [id number] Memoria 16:58:00 05:59:00 Services r Outpatient 05 l Imaging Jonn [place] 2020-12-05 2020-12-05 Outpatient Teykl, MG [facility] [id number] 10:15:00 23:59:59 Bruna Halley 32 2020-12-05 2020-12-05 Outpatient Tyer, MH29 [id number] 10:58:00 23:59:00 Marty Mika Davidson 2020-12-05 2020-12-05 Outpatient IE [facility] [id number] Memoria 10:15:00 10:15:00 32 l [place] 2020-11-24 2020-11-25 Outpt Diag nullFlavo [facility] [id number] Memoria 15:13:00 05:59:00 Services r Outpatient 04 l Imaging [place] 2020-11-24 2020-11-25 Outpt Diag nullFlavo [facility] [id number] Memoria 15:13:00 05:59:00 Services r Outpatient 04 l Imaging [place] 2020-11-24 2020-11-24 Outpatient Mc, 29 [id number] 09:13:00 23:59:00 Bruna Camargogh 04 2020-11-22 2020-11-23 Between nullFlavo [facility] [id number] Memoria 20:48:03 20:48:03 Visit r Urology 14 l [place] [facility] 2020-11-22 2020-11-23 Between nullFlavo [facility] [id number] Memoria 20:48:03 20:48:03 Visit r Urology 14 l [place] [facility] 2020-11-22 2020-11-23 Outpatient [facility] [id number] 14:48:03 14:48:03 14 2020-11-20 2020-11-21 Outpatient nullFlavo [facility] [id number] Memoria 16:30:00 05:59:59 r Urology 31 l [place] Teresa nn [facility] 2020-11-20 2020-11-21 Outpatient nullFlavo [facility]MG [id number] Memoria 16:30:00 05:59:59 r Urology 31 kristofer Moore nn [facility] 2020-11-20 2020-11-20 Outpatient Scott, MHMG MHMG [id number] 10:30:00 23:59:59 Marty Tawana Davidson 2020-11-20 2020-11-20 Outpatient MHIE MHIE [id number] Memoria 10:30:00 10:30:00 31 kristofer Lunsford 2020-11-15 2020-11-15 OFFICE STLMLC STLMLC [id number] Co mmon 00:00:00 00:00:00 VISIT Arvind HERCULES PT - CHI LEVEL 4 [facility] 2020-11-09 2020-11-11 Phone nullFlavo MHMG [id number] Memoria 14:29:32 05:59:59 Message r Internal 11 l Medicine Jon[place] 2020-11-09 2020-11-11 Phone nullFlavo MHMG [id number] Memoria 14:29:32 05:59:59 Message r Internal 11 l Medicine [place] 2020-11-09 2020-11-10 Outpatient MHMG MHMG [id number] 08:29:32 23:59:59 11 2020-11-05 2020-11-07 Phone nullFlavo MHMG [id number] Memoria 16:28:48 05:59:59 Message r Internal 10 l Medicine Jonn [place] 2020-11-05 2020-11-07 Phone nullFlavo MHMG [id number] Memoria 16:28:48 05:59:59 Message r Internal 10 l Medicine [place] 2020-11-07 2020-11-07 OFFICE STLMLC STLMLC [id number] Co mmon 00:00:00 00:00:00 VISIT Arvind HERCULES PT - CHI LEVEL 4 [facility] 2020-11-05 2020-11-06 Outpatient MHMG MHMG [id number] 10:28:48 23:59:59 10 2020-11-06 2020-11-06 OFFICE STLMLC STLMLC [id number] Co mmon 00:00:00 00:00:00 VISIT NEW Spir it PT LEVEL 3 - [facility] 2020-10-03 2020-10-04 [place] [id number] Memoria 17:15:00 05:59:59 r Internal 27 l Medicine Jonn [place] 2020-10-03 2020-10-04 [place] [id number] Memoria 17:15:00 05:59:59 r Internal 27 l [facility] [place] 2020-10-03 2020-10-03 Outpatient Rafia [facility] [id number] 11:15:00 23:59:59 Aniyah Constantino Hernandez 2020-10-03 2020-10-03 Outpatient MHIE MHIE [id number] Memoria 11:15:00 11:15:00 27 l [place] 2020-09-18 2020-09-20 Phone nullFlavo MG [id number] Memoria 14:46:06 05:59:59 Message r Internal 09 l Medicine [place]n [place] 2020-09-18 2020-09-20 Phone nullFlavo MG [id number] Memoria 14:46:06 05:59:59 Message r Internal 09 l Medicine [place] 2020-09-18 2020-09-19 Outpatient MHMG MG [id number] 08:46:06 23:59:59 09 2020-09-12 2020-09-14 Phone nullFlavo MG [id number] Memoria 14:15:27 05:59:59 Message r Internal 08 l Medicine [place] 2020-09-12 2020-09-14 Phone nullFlavo MG [id number] Memoria 14:15:27 05:59:59 Message r Internal 08 l Medicine [place] 2020-09-12 2020-09-13 Outpatient MHMG MG [id number] 08:15:27 23:59:59 08 2020-08-20 2020-08-21 [place] [id number] Memoria 20:15:00 05:59:59 r Internal 28 l [facility] [place] 2020-08-20 2020-08-21 [place] [id number] Memoria 20:15:00 05:59:59 r Internal 28 l [facility] [place] 2020-08-20 2020-08-20 Outpatient Rafia, [facility] [id number] 14:15:00 23:59:59 Aniyah 28 David 2020-08-20 2020-08-20 Outpatient MHIE MHIE [id number] Memoria 14:15:00 14:15:00 28 kristofer Lunsford 2020-06-22 2020-06-22 Outpatient MHIE MHIE [id number] Memoria 11:15:00 11:15:00 25 l Jonn 2020-06-22 2020-06-22 Outpatient MHIE MHIE [id number] Memoria 11:15:00 11:15:00 25 l [place] 2020-06-15 2020-06-15 Outpatient MHIE MHIE [id number] Memoria 11:45:00 11:45:00 26 kristofer Luns[place] 2020-06-15 2020-06-15 Outpatient MHIE MHIE [id number] Memoria 11:45:00 11:45:00 26 kristofer Lunsford 2020-06-11 2020-06-13 Phone nullFlavo MG [id number] Memoria 19:21:15 04:59:59 Message r Internal 07 l Medicine Jonn Jackson 2020-06-11 2020-06-13 Phone nullFlavo MG [id number] Memoria 19:21:15 04:59:59 Message r Internal 07 l Medicine Jonn Jackson 2020-06-11 2020-06-12 Outpatient MG MG [id number] 14:21:15 23:59:59 07 2020-04-21 2020-04-21 Outpatient R [facility] [id number] Univers 13:40:00 13:40:00 EARNESTINE piedra [facility] 2020-04-21 2020-04-21 Laboratory Lab, [facility] Fam Pob I [facility].2. 840.114 [id number] [facility] 13:10:29 13:30:29 Only Earnestine Winkler 350.1.13.10 itabisai mckinnon [place] 4.2.7.2.686 Oseas as Shruti [phone] [address] Office Building One 2020-04-21 2020-04-21 Laboratory Lab, [facility] 1.2.840.114 [id number] 13:10:29 13:30:29 Only Robbie Murillo [facility] 350.1.13.10 [place] 4.2.7.2.686 Professio [phone] [place] [address] [address] One 2020-04-21 2020-04-21 Urgent Pob1, Acute [facility] 1. 2.840.114 [id number] Univers 12:20:00 12:40:00 [facility] 350.1.13.10 ity [facility] 4.2.7.2.686 Oseas as Professio [phone] Me dical [address] Office Building One 2020-04-21 2020-04-21 Urgent Pob1, Acute [facility] 1.2.840.114 [id number] 12:20:00 12:40:00 [facility] 350.1.13.10 [place] 4.2.7.2.686 Professio [phone] [place] [address] Office [address] One 2020-04-21 2020-04-21 Outpatient [facility] [id number] Univers 12:20:00 12:20:00 [facility] 2020-03-20 2020-03-21 Outpatient nullFlavo [facility] [id number] Memoria 16:00:00 04:59:59 r Internal 24 l Medicine [facility] 2020-03-20 2020-03-21 Outpatient nullFlavo [facility] [id number] Memoria 16:00:00 04:59:59 r Internal 24 l Medicine [place] 2020-03-20 2020-03-20 [id number] 11:00:00 23:59:59 Aniyah 24 Hernandez 2020-03-20 2020-03-20 Outpatient [facility] [id number] Memoria 11:00:00 11:00:00 24 l [place] 2020-03-02 2020-03-04 Phone nullFlavo [facility] [id number] Memoria 18:13:30 04:59:59 Message r Internal 06 l Medicine [facility] 2020-03-02 2020-03-04 Phone nullFlavo [facility] [id number] Memoria 18:13:30 04:59:59 Message r Internal 06 l Medicine [facility] 2020-03-02 2020-03-03 Outpatient [facility] [id number] 13:13:30 23:59:59 06 2019-12-15 2019-12-16 [place] [id number] Memoria 17:15:00 05:59:59 r Internal 22 l [facility] 2019-12-15 2019-12-16 Outpatient nullFlavo [facility] [id number] Memoria 17:15:00 05:59:59 r Internal 22 l [facility] 2019-12-15 2019-12-15 Outpatient Rafia [facility] [id number] 11:15:00 23:59:59 Aniyah Coleen [facility] 2019-12-15 2019-12-15 Outpatient MHIE MHIE [id number] Memoria 11:15:00 11:15:00 22 l [place] 2019-12-13 2019-12-15 Phone nullFlavo [facility] [id number] Memoria 17:06:33 05:59:59 Message r Internal 05 l [facility] 2019-12-13 2019-12-15 Phone nullFlavo [facility] [id number] Memoria 17:06:33 05:59:59 Message r Internal 05 [facility] 2019-12-13 2019-12-14 Outpatient [facility] [id number] 11:06:33 23:59:59 05 2019-11-11 2019-11-12 Outpatient nullFlavo [facility] [id number] Memoria 16:30:00 05:59:59 r Internal 23 [facility] 2019-11-11 2019-11-12 Outpatient nullFlavo [facility] [id number] Memoria 16:30:00 05:59:59 r Internal 23 [facility] 2019-11-11 2019-11-11 Outpatient Rafia [facility] [id number] 10:30:00 23:59:59 Aniyah Neri [facility] 2019-11-11 2019-11-11 Outpatient MHIE MHIE [id number] Memoria 10:30:00 10:30:00 23 l [place] 2019-08-04 2019-08-05 Outpatient nullFlavo [facility] [id number] Memoria 16:15:00 04:59:59 r Internal 20 [facility] 2019-08-04 2019-08-05 Outpatient nullFlavo [facility] [id number] Memoria 16:15:00 04:59:59 r [facility] [place] 2019-08-04 2019-08-04 Outpatient Rafia [facility] [id number] 11:15:00 23:59:59 Aniyah 20 Hernandez 2019-08-04 2019-08-04 Outpatient MHIE MHIE [id number] Memoria 11:15:00 11:15:00 20 [facility] 2019-07-21 2019-07-21 [place] [id number] Memoria 14:30:00 14:30:00 Pre-Reg r Internal 21 l [facility] 2019-07-21 2019-07-21 Ambulatory nullFlavo [facility] [id number] Memoria 14:30:00 14:30:00 Pre-Reg r Internal 21 l [facility] 2019-07-21 2019-07-21 Outpatient MHIE MHIE [id number] Memoria 09:30:00 09:30:00 21 [facility] 2019-07-21 2019-07-21 Outpatient [facility] [id number] 09:30:00 09:30:00 21 2019-03-22 2019-03-23 Outpatient nullFlavo [facility] [id number] Memoria 16:15:00 04:59:59 r [facility] [place] 2019-03-22 2019-03-23 Outpatient nullFlavo [facility] [id number] Memoria 16:15:00 04:59:59 r Internal 19 [facility] [place] 2019-03-22 2019-03-22 Outpatient Rafia [facility] [id number] 11:15:00 23:59:59 Aniyah Radha Hernandez 2019-03-22 2019-03-22 Outpatient MHIE MHIE [id number] Memoria 11:15:00 11:15:00 19 kristofer [place] 2018-12-09 2018-12-10 Outpatient nullFlavo [facility] [id number] Memoria 17:15:00 05:59:59 r Internal 18 [facility] 2018-12-09 2018-12-10 Outpatient nullFlavo [facility] [id number] Memoria 17:15:00 05:59:59 r Internal 18 [facility] 2018-12-09 2018-12-09 Outpatient Rafia [facility] [id number] 11:15:00 23:59:59 Aniyah 18 David 2018-12-09 2018-12-09 Outpatient MHIE MHIE [id number] Memoria 11:15:00 11:15:00 18 kristofer [place] 2018-08-04 2018-08-05 [place] [id number] Memoria 16:15:00 04:59:59 r Internal 16 [facility] [place] 2018-08-04 2018-08-05 [place] [id number] Memoria 16:15:00 04:59:59 r Internal 16 [facility] [place] [place] 2018-08-04 2018-08-04 Outpatient Rafia [facility] [id number] 11:15:00 23:59:59 Aniyah Carolin Hernandez 2018-08-04 2018-08-04 Outpatient MHIE MHIE [id number] Memoria 11:15:00 11:15:00 16 kristofer [place] 2018-07-28 2018-07-28 Ambulatory nullFlavo [facility] [id number] Memoria 13:30:00 13:30:00 Pre-Reg r Internal 17 [facility] [place] 2018-07-28 2018-07-28 Ambulatory nullFlavo [facility] [id number] Memoria 13:30:00 13:30:00 Pre-Reg r Internal 17 [facility] [place] [place] 2018-07-28 2018-07-28 Outpatient MHIE MHIE [id number] Memoria 08:30:00 08:30:00 17 kristofer [place] 2018-07-28 2018-07-28 [id number] 08:30:00 08:30:00 17 2018-05-03 2018-05-03 [facility] [id number] Common 08:30:00 08:30:00 [facility] 2018-04-07 2018-04-08 [place] [id number] Memoria 15:00:00 04:59:59 r Internal 15 [facility] [place] [place] 2018-04-07 2018-04-08 Outpatient nullFlavo [facility] [id number] Memoria 15:00:00 04:59:59 r Internal 15 [facility] [place] 2018-04-07 2018-04-07 Outpatient Rafia [facility] [id number] 10:00:00 23:59:59 Aniyahstephany Hernandez 2018-04-07 2018-04-07 Outpatient MHIE IE [id number] Memoria 10:00:00 10:00:00 15 kristofer [place] 2018-01-04 2018-01-05 [place] [id number] Memoria 15:30:00 04:59:59 r Internal 14 [facility] [place] 2018-01-04 2018-01-05 [place] [id number] Memoria 15:30:00 04:59:59 r Internal 14 [facility] [place] 2018-01-04 2018-01-04 Outpatient Rafia [facility] [id number] 10:30:00 23:59:59 Aniyah 14 Hernandez 2018-01-04 2018-01-04 Outpatient SIMONEIE SIMONEIE [id number] Memoria 10:30:00 10:30:00 14 kristofer [place] 2017-12-31 2017-12-31 [place] [id number] Memoria 16:00:00 16:00:00 Pre-Reg r Internal 12 [facility] [place] 2017-12-31 2017-12-31 [place] [id number] Memoria 16:00:00 16:00:00 Pre-Reg r Internal 12 [facility] [place] 2017-12-31 2017-12-31 Outpatient SIMONEIE SIMONEIE [id number] Memoria 11:00:00 11:00:00 12 kristofer [place] 2017-12-31 2017-12-31 Outpatient Rafia [facility] [id number] 11:00:00 11:00:00 Aniyahstephany Hernandez 2017-12-22 2017-12-22 [place] [id number] Memoria 13:30:00 13:30:00 Pre-Reg r Internal 13 [facility] [place] 2017-12-22 2017-12-22 [place] [id number] Memoria 13:30:00 13:30:00 Pre-Reg r Internal 13 [facility] [place] 2017-12-22 2017-12-22 Outpatient MHIE MHIE [id number] Memoria 08:30:00 08:30:00 13 kristofer [place] 2017-12-22 2017-12-22 Outpatient MHMG MHMG [id number] 08:30:00 08:30:00 13 2017-09-29 2017-09-30 Outpatient nullFlavo MHMG [id number] Memoria 17:15:00 05:59:59 r Internal 11 [facility] 2017-09-29 2017-09-30 Outpatient nullFlavo MHMG [id number] Memoria 17:15:00 05:59:59 r Internal 11 [facility] [place] 2017-09-29 2017-09-29 [id number] 11:15:00 23:59:59 Aniyah Hernandez 2017-09-29 2017-09-29 Outpatient MHIE MHIE [id number] Memoria 11:15:00 11:15:00 11 kristofer [place] 2017-06-02 2017-06-02 Outpatient MHIE MHIE [id number] Memoria 11:15:00 11:15:00 10 kristofer [place] 2017-06-02 2017-06-02 Outpatient MHIE MHIE [id number] Memoria 11:15:00 11:15:00 10 kristofer [place] 2017-06-01 2017-06-01 Outpatient MHIE MHIE [id number] Memoria 11:15:00 11:15:00 09 kristofer [place] 2017-06-01 2017-06-01 Outpatient MHIE MHIE [id number] Memoria 11:15:00 11:15:00 09 kristofer [place] 2017-03-02 2017-03-02 Outpatient MHIE MHIE [id number] Memoria 11:15:00 11:15:00 08 kristofer [place] 2017-03-02 2017-03-02 Outpatient MHIE MHIE [id number] Memoria 11:15:00 11:15:00 08 kristofer [place] 2016-10-29 2016-10-29 Outpatient MHIE MHIE [id number] Memoria 11:15:00 11:15:00 07 kristofer [place] 2016-10-29 2016-10-29 Outpatient MHIE MHIE [id number] Memoria 11:15:00 11:15:00 07 kristofer [place] 2016-06-24 2016-06-24 Outpatient MHIE MHIE [id number] Memoria 11:15:00 11:15:00 06 kristofer [place] 2016-06-24 2016-06-24 Outpatient MHIE IE [id number] Memoria 11:15:00 11:15:00 06 kristofer [place] 2015-11-27 2015-11-27 Outpatient IE IE [id number] Memoria 11:00:00 11:00:00 04 kristofer [place] 2015-11-27 2015-11-27 Outpatient MHIE IE [id number] Memoria 11:00:00 11:00:00 04 kristofer [place] 2015-08-21 2015-08-22 Outpt Diag nullFlavo [facility] [id number] Memoria 19:30:00 05:59:00 Services r Outpatient 03 l [facility] [place] 2015-08-21 2015-08-22 Outpt Diag nullFlavo [facility] [id number] Memoria 19:30:00 05:59:00 Services r Outpatient 03 l [facility] [place] 2015-08-21 2015-08-21 Outpatient Davidniko, MH29 MH29 [id number] 13:30:00 23:59:00 Jani Naomy 2015-08-21 2015-08-21 Outpatient IE IE [id number] Memoria 14:00:00 14:00:00 05 kristofer [place] 2015-08-21 2015-08-21 Outpatient IE IE [id number] Memoria 14:00:00 14:00:00 05 kristofer [place] 2015-07-24 2015-07-25 Outpt Diag nullFlavo [facility] [id number] Memoria 19:41:00 04:59:00 Services r Outpatient 02 l [facility] [place] 2015-07-24 2015-07-25 Outpt Diag nullFlavo [facility] [id number] Memoria 19:41:00 04:59:00 Services r Outpatient 02 l Imaging [place] 2015-07-24 2015-07-24 Outpatient Carlajessee, MH29 MH29 [id number] 14:41:00 23:59:00 Jani G 02 2015-07-24 2015-07-24 Outpatient IE IE [id number] Memoria 14:00:00 14:00:00 03 kristofer [place] 2015-07-24 2015-07-24 Outpatient MHIE IE [id number] Memoria 14:00:00 14:00:00 03 kristofer [place] 2015-07-24 2015-07-24 Outpatient IE IE [id number] Memoria 11:00:00 11:00:00 02 kristofer [place] 2015-07-24 2015-07-24 Outpatient IE IE [id number] Memoria 11:00:00 11:00:00 02 kristofer [place] 2015-06-14 2015-06-15 Outpt Diag nullFlavo [facility] [id number] Memoria 19:49:00 04:59:00 Services r Outpatient 01 l [place] 2015-06-14 2015-06-15 Outpt Diag nullFlavo [facility] [id number] Memoria 19:49:00 04:59:00 Services r Outpatient 01 l Imaging [place] 2015-06-14 2015-06-14 Outpatient SIMONE [id number] [id number] 14:49:00 23:59:00 Jani Naomy 2015-06-14 2015-06-14 Outpatient IE IE [id number] Memoria 13:30:00 13:30:00 01 kristofer [place] 2015-06-14 2015-06-14 Outpatient IE IE [id number] Memoria 13:30:00 13:30:00 01 kristofer [place] 2015-05-10 2015-05-11 Outpt Diag nullFlavo [facility] [id number] Memoria 17:41:00 04:59:00 Services r Outpatient 00 l Imaging [place] 2015-05-10 2015-05-11 Outpt Diag nullFlavo [facility] [id number] Memoria 17:41:00 04:59:00 Services r Outpatient 00 l Imaging [place] 2015-05-10 2015-05-10 Outpatient Alexandro, MH29 [id number] 12:41:00 23:59:00 Jani Naomy 2015-05-10 2015-05-10 Outpatient IE IE [id number] Memoria 14:00:00 14:00:00 00 kristofer [place] 2015-05-10 2015-05-10 Outpatient IE IE [id number] Memoria 14:00:00 14:00:00 00 kristofer [place] Results Test Description Test Time Test Comments Results Result Comments Source POCT SARS-COV-2 ANTIGEN (BINAX NOW) 2022-07-15 14:42:00 Test Item Value Reference Range Interpretation Comme nts POCT SARS-COV-2 ANTIGEN (test code = 5076) Not Detected Not Detecte d On board controls acceptable with C Line (test code = Yes 3574) [facility] [id number] 14:39:31 Test Item Value Reference Range Interpretation Comments POCT Molecular FluA (test code = Positive Negative A 69420-4) Lab Interpretation (test code = Abnormal 40647-2) [facility] AND [id number] 18:10:00 Test Item Value Reference Range Interpretation Comments POC UA Color (test Yellow *NA*(08/08/21 code = POC UA Color) 1:10 PM[facility] [id number] 18:10:00 Test Item Value Reference Range Interpretation Comments POC UA Turbidity (test Clear *NA*(08/08/21 code = POC UA Turbidity) 1:10 PM) [facility] [id number] 18:10:00 Test Item Value Reference Range Interpretation Comments POC UA SG (test code = POC UA SG) 1.025 1 [facility] [id number] 18:10:00 Test Item Value Reference Range Interpretation Comments POC UA pH (test code = POC UA pH) 5.0 1 5.0-8.0 [facility] [id number] 18:10:00 Test Item Value Reference Range Interpretation Comments POC UA Prot (test code = POC UA 30 mg/dL Prot) [facility] [id number] 18:10:00 Test Item Value Reference Range Interpretation Comments POC UA Glu (test code = POC UA Negative mg/dL Glu) [facility] [id number] 18:10:00 Test Item Value Reference Range Interpretation Comments POC UA Ket (test code = POC UA Negative mg/dL Ket) [facility] [id number] 18:10:00 Test Item Value Reference Range Interpretation Comments POC UA Bili (test Negative *NA*(08/08/21 code = POC UA Bili) 1:10 PM) [facility] [id number] 18:10:00 Test Item Value Reference Range Interpretation Comments POC UA Bld (test code Negative *NA*(08/08/21 = POC UA Bld) 1:10 PM) [facility] [id number] 18:10:00 Test Item Value Reference Range Interpretation Comments POC UA Uro (test code = POC UA Uro) 0.2 0.1-1.0 [facility] [id number] 18:10:00 Test Item Value Reference Range Interpretation Comments POC UA Nit (test code Negative *NA*(08/08/21 = POC UA Nit) 1:10 PM) [facility] [id number] 18:10:00 Test Item Value Reference Range Interpretation Comments POC UA LeukEst (test Negative *NA*(08/08/21 code = POC UA LeukEst) 1:10 PM) [facility] [id number] 18:10:00 Test Item Value Reference Range Interpretation Comments POC UA Color (test Yellow *NA*(08/08/21 code = POC UA Color) 1:10 PM) [facility] [id number] 18:10:00 Test Item Value Reference Range Interpretation Comments POC UA Turbidity (test Clear *NA*(08/08/21 code = POC UA Turbidity) 1:10 PM) [facility] [id number] 18:10:00 Test Item Value Reference Range Interpretation Comments POC UA SG (test code = POC UA SG) 1.025 1 [facility] [id number] 18:10:00 Test Item Value Reference Range Interpretation Comments POC UA pH (test code = POC UA pH) 5.0 1 5.0-8.0 [facility] [id number] 18:10:00 Test Item Value Reference Range Interpretation Comments POC UA Prot (test code = POC UA 30 mg/dL Prot) [facility] [id number] 18:10:00 Test Item Value Reference Range Interpretation Comments POC UA Glu (test code = POC UA Negative mg/dL Glu) [facility] [id number] 18:10:00 Test Item Value Reference Range Interpretation Comments POC UA Ket (test code = POC UA Negative mg/dL Ket) [facility] [id number] 18:10:00 Test Item Value Reference Range Interpretation Comments POC UA Bili (test Negative *NA*(08/08/21 code = POC UA Bili) 1:10 PM) [facility] AND [id number] 18:10:00 Test Item Value Reference Range Interpretation Comments POC UA Bld (test code Negative *NA*(08/08/21 = POC UA Bld) 1:10 PM) [facility] AND [id number] 18:10:00 Test Item Value Reference Range Interpretation Comments POC UA Uro (test code = POC UA Uro) 0.2 0.1-1.0 [facility] AND [id number] 18:10:00 Test Item Value Reference Range Interpretation Comments POC UA Nit (test code Negative *NA*(08/08/21 = POC UA Nit) 1:10 PM) [facility] AND [id number] 18:10:00 Test Item Value Reference Range Interpretation Comments POC UA LeukEst (test Negative *NA*(08/08/21 code = POC UA LeukEst) 1:10 PM) [facility] [id number] 17:35:00 Test Item Value Reference Range Interpretation Comments BUN (test code = BUN) 19 7-25 [facility] [id number] 17:35:00 Test Item Value Reference Range Interpretation Comments Creatinine Lvl (test code = Creatinine 1.71 0.70-1.25 Lvl) [facility] [id number] 17:35:00 Test Item Value Reference Range Interpretation Comments eGFR NON-AFR. BARBADIAN (test code = 40 eGFR NON-AFR. BARBADIAN) [facility] [id number] 17:35:00 Test Item Value Reference Range Interpretation Comments eGFR (test code = eGFR 46 ) [facility] [id number] 17:35:00 Test Item Value Reference Range Interpretation Comments B/C Ratio (test code = B/C Ratio) 11 6-22 [facility] [id number] 17:35:00 Test Item Value Reference Range Interpretation Comments Sodium Lvl (test code = Sodium Lvl) 140 135-146 [facility] [id number] 17:35:00 Test Item Value Reference Range Interpretation Comments Potassium Lvl (test code = Potassium 4.5 3.5-5.3 Lvl) [facility]2021-02-09 17:35:00 Test Item Value Reference Range Interpretation Comments Chloride Lvl (test code = Chloride Lvl) 104 98-110 [place] [id number] 17:35:00 Test Item Value Reference Range Interpretation Comments CO2 (test code = CO2) - [place] [id number] 17:35:00 Test Item Value Reference Range Interpretation Comments Calcium Lvl (test code = Calcium Lvl) 9.5 8.6-10.3 [place] [id number] 17:35:00 Test Item Value Reference Range Interpretation Comments BUN (test code = BUN) 19 - [facility]2021-02-09 17:35:00 Test Item Value Reference Range Interpretation Comments Creatinine Lvl (test code = Creatinine 1.71 0.70-1.25 Lvl) [facility]2021-02-09 17:35:00 Test Item Value Reference Range Interpretation Comments eGFR NON-AFR. BARBADIAN (test code = 40 eGFR NON-AFR. BARBADIAN) [facility]2021-02-09 17:35:00 Test Item Value Reference Range Interpretation Comments eGFR (test code = eGFR 46 ) [facility]2021-02-09 17:35:00 Test Item Value Reference Range Interpretation Comments B/C Ratio (test code = B/C Ratio) 11 - [facility]2021-02-09 17:35:00 Test Item Value Reference Range Interpretation Comments Sodium Lvl (test code = Sodium Lvl) 140 135-146 [facility]2021-02-09 17:35:00 Test Item Value Reference Range Interpretation Comments Potassium Lvl (test code = Potassium 4.5 3.5-5.3 Lvl) [place] [id number] 17:35:00 Test Item Value Reference Range Interpretation Comments Chloride Lvl (test code = Chloride Lvl) 104 98-110 [place] [id number] 17:35:00 Test Item Value Reference Range Interpretation Comments CO2 (test code = CO2) 27 - [place] [id number] 17:35:00 Test Item Value Reference Range Interpretation Comments Calcium Lvl (test code = Calcium Lvl) 9.5 8.6-10.3 [facility] [id number] 16:33:00 Test Item Value Reference Range Interpretation Comments Glucose Lvl (test code = Glucose Lvl) TNP 65-99 [facility] HospitalGlenRose InstrumentsFORMERLY [facility] [id number] 16:33:00 Test Item Value Reference Range Interpretation Comments Result 2 (Urine Culture) See Result Comment (test code = Result 2 (Urine Culture)) [facility] [id number] 16:33:00 Test Item Value Reference Range Interpretation Comments Glucose Lvl (test code = Glucose Lvl) TNP 65-99 [facility] HospitalGlenRose InstrumentsFORMERLY [facility] [id number] 16:33:00 Test Item Value Reference Range Interpretation Comments Result 2 (Urine Culture) See Result Comment (test code = Result 2 (Urine Culture)) [facility] Ho[id number] 15:23:00 Test Item Value Reference Range Interpretation Comments Chloride Lvl (test code = Chloride Lvl) 100 98-110 [facility] HospitalRkhpadkJMELTXMIRWCE3055-30-25 15:23:00 Test Item Value Reference Range Interpretation Comments Potassium Lvl (test code = Potassium 4.6 3.5-5.3 Lvl) [facility] H[id number] 15:23:00 Test Item Value Reference Range Interpretation Comments CO2 (test code = CO2) 30 20-32 [facility] [id number] 15:23:00 Test Item Value Reference Range Interpretation Comments A/G Ratio (test code = A/G Ratio) 1.8 1.0-2.5 [facility] [id number] 15:23:00 Test Item Value Reference Range Interpretation Comments Total Protein (test code = Total 6.5 6.1-8.1 Protein) [facility] Hos[id number] 15:23:00 Test Item Value Reference Range Interpretation Comments Calcium Lvl (test code = Calcium Lvl) 9.4 8.6-10.3 [facility] Hos[id number] 15:23:00 Test Item Value Reference Range Interpretation Comments Albumin Lvl (test code = Albumin Lvl) 4.2 3.6-5.1 [facility] HospitalKrbbvzjAIMWSBFOAGAK7074-35-30 15:23:00 Test Item Value Reference Range Interpretation Comments Alk Phos (test code = Alk Phos) 33 40-115 [facility] Hospital[id number] 15:23:00 Test Item Value Reference Range Interpretation Comments ALANINE AMINOTRANSFERASE (test code = 16 9-46 ALANINE AMINOTRANSFERASE) [facility] HospitalGrkmzvfIVWTKIMBQMLW5048-79-80 15:23:00 Test Item Value Reference Range Interpretation Comments ASPARTATE TRANSAMINASE (test code = 20 10-35 ASPARTATE TRANSAMINASE) [facility] HospitalRmprljaRDLXSLFSCKXJ7224-06-56 15:23:00 Test Item Value Reference Range Interpretation Comments Globulin (test code = Globulin) 2.3 1.9-3.7 [facility] HospitalKywhrioEDDCBZODVCOJ7356-92-48 15:23:00 Test Item Value Reference Range Interpretation Comments Bili Total (test code = Bili Total) 0.5 0.2-1.2 [facility] HospitalShvryyrFNNYSRTIDPPI9319-26-12 15:23:00 Test Item Value Reference Range Interpretation Comments Creatinine Lvl (test code = Creatinine 1.62 0.70-1.25 Lvl) [facility] HospitalTapwztnATYXPFQBPHTA7914-81-93 15:23:00 Test Item Value Reference Range Interpretation Comments BUN (test code = BUN) 23 7-25 [facility] HospitalCsbgvikUREHMEOOFWRR8298-92-13 15:23:00 Test Item Value Reference Range Interpretation Comments eGFR NON-AFR. BARBADIAN (test code = 43 eGFR NON-AFR. BARBADIAN) [facility] HospitalStkuqubLVWRXQWSEBQL2159-83-03 15:23:00 Test Item Value Reference Range Interpretation Comments Glucose Lvl (test code = Glucose Lvl) 140 65-99 [facility] HospitalLdhpbhzWZTYYFVAGPCO6802-98-12 15:23:00 Test Item Value Reference Range Interpretation Comments B/C Ratio (test code = B/C Ratio) 14 6-22 [facility] HospitalVoamzlcERXHOIUCUITK2753-94-40 15:23:00 Test Item Value Reference Range Interpretation Comments eGFR (test code = eGFR 50 ) [facility] HospitalYvzfvbzVZRITLPKMUJB6670-55-26 15:23:00 Test Item Value Reference Range Interpretation Comments Sodium Lvl (test code = Sodium Lvl) 138 135-146 [facility] BudaSsucizjVZREXNIMOL4585-72-22 15:23:00 Test Item Value Reference Range Interpretation Comments Hgb (test code = Hgb) 13.4 13.2-17.1 [facility] CampusHdbwwseRWHSULPWEM6307-57-78 15:23:00 Test Item Value Reference Range Interpretation Comments RBC X 10x6 (test code = RBC X 10x6) 4.23 4.20-5.80 [facility] CampusZytlapwCEGMVYDTMR9769-29-12 15:23:00 Test Item Value Reference Range Interpretation Comments Hct (test code = Hct) 40.3 38.5-50.0 [facility] CampusTzimggiBJUECHJXJN7009-66-44 15:23:00 Test Item Value Reference Range Interpretation Comments WBC X 10x3 (test code = WBC X 10x3) 6.5 3.8-10.8 [facility] CampusXsjulenSGCVULMGHT5198-61-09 15:23:00 Test Item Value Reference Range Interpretation Comments MCH (test code = MCH) 31.7 pg 27.0-33.0 [facility] CampusXkumkwnVMFTBQKEUZ8362-25-95 15:23:00 Test Item Value Reference Range Interpretation Comments MCHC (test code = MCHC) 33.3 32.0-36.0 [facility] CampusDdgisagNWBYXJAIJO7066-17-01 15:23:00 Test Item Value Reference Range Interpretation Comments MCV (test code = MCV) 95.3 80.0-100.0 [facility] CampusHweheofCOQZFOMAOQ5189-67-23 15:23:00 Test Item Value Reference Range Interpretation Comments RDW (test code = RDW) 12.5 11.0-15.0 [facility] CampusUtpbqphSTZDEMXFII2297-93-06 15:23:00 Test Item Value Reference Range Interpretation Comments MPV (test code = MPV) 11.6 7.5-12.5 [facility] CampusJbuqqxeZADTNGDQJD0872-88-34 15:23:00 Test Item Value Reference Range Interpretation Comments Platelet (test code = Platelet) 218 140-400 [facility]QfylhlmZEKONM7784-26-79 15:23:00 Test Item Value Reference Range Interpretation Comments Chol (test code = Chol) 123 [facility] BudaUdbfbhcRWBDFJ3970-85-63 15:23:00 Test Item Value Reference Range Interpretation Comments CHD Risk (test code = CHD Risk) 4.4 [facility] BudaGabbvuiVZSLSZ6994-83-33 15:23:00 Test Item Value Reference Range Interpretation Comments Non HDL Chol (test code = Non HDL Chol) 95 [facility] BudaQezmcbjUYUXPR8717-02-80 15:23:00 Test Item Value Reference Range Interpretation Comments HDL (test code = HDL) 28 [facility]udaJltzbarEZZYER5885-92-04 15:23:00 Test Item Value Reference Range Interpretation Comments LDL (Calculated) (test code = LDL 73 (Calculated)) [facility]udaVnwmqmsOVVBDG1178-54-48 15:23:00 Test Item Value Reference Range Interpretation Comments Trig (test code = Trig) 134 [facility] [id number] 15:23:00 Test Item Value Reference Range Interpretation Comments Hgb A1C (test code = Hgb A1C) 7.1 [facility] [id number] 15:23:00 Test Item Value Reference Range Interpretation Comments PSA (test code = PSA) 0.6 [facility]2019-02-11 15:23:00 Test Item Value Reference Range Interpretation Comments Hgb (test code = Hgb) 13.4 13.2-17.1 [facility] [id number] 15:23:00 Test Item Value Reference Range Interpretation Comments RBC X 10x6 (test code = RBC X 10x6) 4.23 4.20-5.80 [facility] [id number] 15:23:00 Test Item Value Reference Range Interpretation Comments Hct (test code = Hct) 40.3 38.5-50.0 [facility] [id number] 15:23:00 Test Item Value Reference Range Interpretation Comments WBC X 10x3 (test code = WBC X 10x3) 6.5 3.8-10.8 [facility]2019-02-11 15:23:00 Test Item Value Reference Range Interpretation Comments Chloride Lvl (test code = Chloride Lvl) 100 98-110 [facility] [id number] 15:23:00 Test Item Value Reference Range Interpretation Comments Potassium Lvl (test code = Potassium 4.6 3.5-5.3 Lvl) [facility]2019-02-11 15:23:00 Test Item Value Reference Range Interpretation Comments CO2 (test code = CO2) 30 20-32 [facility]2019-02-11 15:23:00 Test Item Value Reference Range Interpretation Comments A/G Ratio (test code = A/G Ratio) 1.8 1.0-2.5 [facility] [id number] 15:23:00 Test Item Value Reference Range Interpretation Comments Total Protein (test code = Total 6.5 6.1-8.1 Protein) [facility] [id number] 15:23:00 Test Item Value Reference Range Interpretation Comments Calcium Lvl (test code = Calcium Lvl) 9.4 8.6-10.3 [facility] HFDCZTRQY4905-05-82 15:23:00 Test Item Value Reference Range Interpretation Comments Albumin Lvl (test code = Albumin Lvl) 4.2 3.6-5.1 [facility] [id number] 15:23:00 Test Item Value Reference Range Interpretation Comments Alk Phos (test code = Alk Phos) 33 40-115 [facility] [id number] 15:23:00 Test Item Value Reference Range Interpretation Comments ALANINE AMINOTRANSFERASE (test code = 16 9-46 ALANINE AMINOTRANSFERASE) [facility]2019-02-11 15:23:00 Test Item Value Reference Range Interpretation Comments ASPARTATE TRANSAMINASE (test code = 20 10-35 ASPARTATE TRANSAMINASE) [facility] [id number] 15:23:00 Test Item Value Reference Range Interpretation Comments Globulin (test code = Globulin) 2.3 1.9-3.7 [facility] [id number] 15:23:00 Test Item Value Reference Range Interpretation Comments Bili Total (test code = Bili Total) 0.5 0.2-1.2 [facility] [id number] 15:23:00 Test Item Value Reference Range Interpretation Comments U Alb (test code = U Alb) 1.0 [facility] [id number] 15:23:00 Test Item Value Reference Range Interpretation Comments U Alb/Crea (test code = U Alb/Crea) 7 [facility] [id number] 15:23:00 Test Item Value Reference Range Interpretation Comments U Creat mg/dL (test code = U Creat 136 20-320 mg/dL) [facility] [id number] 15:23:00 Test Item Value Reference Range Interpretation Comments MCH (test code = MCH) 31.7 pg 27.0-33.0 [facility] [id number] 15:23:00 Test Item Value Reference Range Interpretation Comments MCHC (test code = MCHC) 33.3 32.0-36.0 [facility] [id number] 15:23:00 Test Item Value Reference Range Interpretation Comments MCV (test code = MCV) 95.3 80.0-100.0 [facility] [id number] 15:23:00 Test Item Value Reference Range Interpretation Comments RDW (test code = RDW) 12.5 11.0-15.0 [facility] [id number] 15:23:00 Test Item Value Reference Range Interpretation Comments MPV (test code = MPV) 11.6 7.5-12.5 [facility] [id number] 15:23:00 Test Item Value Reference Range Interpretation Comments Platelet (test code = Platelet) 218 140-400 [facility] [id number] 15:23:00 Test Item Value Reference Range Interpretation Comments Creatinine Lvl (test code = Creatinine 1.62 0.70-1.25 Lvl) [facility] [id number] 15:23:00 Test Item Value Reference Range Interpretation Comments BUN (test code = BUN) 23 7-25 [facility] [id number] 15:23:00 Test Item Value Reference Range Interpretation Comments eGFR NON-AFR. BAR[place]IAN (test code = 43 eGFR NON-AFR. BARBADIAN) [facility] [id number] 15:23:00 Test Item Value Reference Range Interpretation Comments Glucose Lvl (test code = Glucose Lvl) 140 65-99 [facility] [id number] 15:23:00 Test Item Value Reference Range Interpretation Comments B/C Ratio (test code = B/C Ratio) 14 6-22 [facility] [id number] 15:23:00 Test Item Value Reference Range Interpretation Comments eGFR (test code = eGFR 50 ) [facility] [id number] 15:23:00 Test Item Value Reference Range Interpretation Comments Sodium Lvl (test code = Sodium Lvl) 138 135-146 [facility] [id number] 15:23:00 Test Item Value Reference Range Interpretation Comments U Alb (test code = U Alb) 1.0 [facility] [id number] 15:23:00 Test Item Value Reference Range Interpretation Comments U Alb/Crea (test code = U Alb/Crea) 7 [facility] [id number] 15:23:00 Test Item Value Reference Range Interpretation Comments U Creat mg/dL (test code = U Creat 136 20-320 mg/dL) [facility]RfilrnvXLSSRKOJXHGH9439-02-72 15:23:00 Test Item Value Reference Range Interpretation Comments Chloride Lvl (test code = Chloride Lvl) 100 98-110 [facility] HospitalLyvizjqXMJEOCDJQAFM4013-48-03 15:23:00 Test Item Value Reference Range Interpretation Comments Potassium Lvl (test code = Potassium 4.6 3.5-5.3 Lvl) [facility] HospitalKyqajnrVGZJXHCPETHG6139-07-64 15:23:00 Test Item Value Reference Range Interpretation Comments CO2 (test code = CO2) 30 20-32 [facility] HospitalRhlppucMVILQINSHMGJ6518-59-40 15:23:00 Test Item Value Reference Range Interpretation Comments A/G Ratio (test code = A/G Ratio) 1.8 1.0-2.5 [facility] HospitalWnakuvhGFFGNQWUUNOR3693-35-40 15:23:00 Test Item Value Reference Range Interpretation Comments Total Protein (test code = Total 6.5 6.1-8.1 Protein) [facility] HospitalBefkloiKYMFQGDUEGCE9068-02-97 15:23:00 Test Item Value Reference Range Interpretation Comments Calcium Lvl (test code = Calcium Lvl) 9.4 8.6-10.3 [facility] HospitalBhehshgKCRMROSQFURO0139-04-82 15:23:00 Test Item Value Reference Range Interpretation Comments Albumin Lvl (test code = Albumin Lvl) 4.2 3.6-5.1 [facility] HospitalUrekrhmTRMZLJHEQMBU9326-89-53 15:23:00 Test Item Value Reference Range Interpretation Comments Alk Phos (test code = Alk Phos) 33 40-115 [facility] HospitalDykqjeoCSKOJWMOJPZN3970-15-84 15:23:00 Test Item Value Reference Range Interpretation Comments ALANINE AMINOTRANSFERASE (test code = 16 9-46 ALANINE AMINOTRANSFERASE) [facility] HospitalXvdlxsqFQEQQCLOKETG4328-92-59 15:23:00 Test Item Value Reference Range Interpretation Comments ASPARTATE TRANSAMINASE (test code = 20 10-35 ASPARTATE TRANSAMINASE) [facility] HospitalZhuxdgkBTQEJNVCVERN9064-64-86 15:23:00 Test Item Value Reference Range Interpretation Comments Globulin (test code = Globulin) 2.3 1.9-3.7 [facility] HospitalMrpxkweDQYZIXHYNWZS0491-65-95 15:23:00 Test Item Value Reference Range Interpretation Comments Bili Total (test code = Bili Total) 0.5 0.2-1.2 [facility] HospitalRrtvgviVVHDSEPMDRCE5539-40-92 15:23:00 Test Item Value Reference Range Interpretation Comments Creatinine Lvl (test code = Creatinine 1.62 0.70-1.25 Lvl) [facility] HospitalCdrlhiiZCNONVSKXVOM6383-01-73 15:23:00 Test Item Value Reference Range Interpretation Comments BUN (test code = BUN) 23 7-25 [facility] HospitalZwwvwxqBWRQXYLDCRPW0407-72-58 15:23:00 Test Item Value Reference Range Interpretation Comments eGFR NON-AFR. BAR[place] (test code = 43 eGFR NON-AFR. BARBADIAN) [facility] HospitalUlaqqrpWSRBJSJFIGFI3421-91-28 15:23:00 Test Item Value Reference Range Interpretation Comments Glucose Lvl (test code = Glucose Lvl) 140 65-99 [facility] HospitalNdpavcmEARSKOGRCQJM3097-16-31 15:23:00 Test Item Value Reference Range Interpretation Comments B/C Ratio (test code = B/C Ratio) 14 6-22 [facility] HospitalSifnuspNEULUFWXRNPQ4875-77-22 15:23:00 Test Item Value Reference Range Interpretation Comments eGFR (test code = eGFR 50 ) [facility] HospitalBhmycgaTCSKAICIGHCY7478-44-00 15:23:00 Test Item Value Reference Range Interpretation Comments Sodium Lvl (test code = Sodium Lvl) 138 135-146 [facility]NdycyqpTCAGUIMARN7371-15-28 15:23:00 Test Item Value Reference Range Interpretation Comments Hgb (test code = Hgb) 13.4 13.2-17.1 [facility] CampusGqmoziaEGQAPEQQAM7886-73-44 15:23:00 Test Item Value Reference Range Interpretation Comments RBC X 10x6 (test code = RBC X 10x6) 4.23 4.20-5.80 [facility] CampusEbjjrjqIXALFSIBXZ7421-31-34 15:23:00 Test Item Value Reference Range Interpretation Comments Hct (test code = Hct) 40.3 38.5-50.0 [facility]uxGENTWUDZYE4892-59-05 15:23:00 Test Item Value Reference Range Interpretation Comments WBC X 10x3 (test code = WBC X 10x3) 6.5 3.8-10.8 [facility]NoxtnexDZJXOVGYOX2628-62-33 15:23:00 Test Item Value Reference Range Interpretation Comments MCH (test code = MCH) 31.7 pg 27.0-33.0 [facility] MichiganFxzryltURHXRYRSNF2480-65-65 15:23:00 Test Item Value Reference Range Interpretation Comments MCHC (test code = MCHC) 33.3 32.0-36.0 [facility]MifialhMYYWDTYKTM1917-28-61 15:23:00 Test Item Value Reference Range Interpretation Comments MCV (test code = MCV) 95.3 80.0-100.0 [facility] CampusVxxsabtZRSSIDMUPA6481-77-77 15:23:00 Test Item Value Reference Range Interpretation Comments RDW (test code = RDW) 12.5 11.0-15.0 [facility] CampusXidnotrSDBRUGTMEU8879-94-17 15:23:00 Test Item Value Reference Range Interpretation Comments MPV (test code = MPV) 11.6 7.5-12.5 [facility]OqmxzahGHUGVIAPPI1889-85-12 15:23:00 Test Item Value Reference Range Interpretation Comments Platelet (test code = Platelet) 218 140-400 [facility]udaLijzakxVCKBOD9023-75-38 15:23:00 Test Item Value Reference Range Interpretation Comments Chol (test code = Chol) 123 [facility]udaQpmwircGIJXPH1192-52-75 15:23:00 Test Item Value Reference Range Interpretation Comments CHD Risk (test code = CHD Risk) 4.4 [facility]udaGqgocvaWMKUXG4403-44-59 15:23:00 Test Item Value Reference Range Interpretation Comments Non HDL Chol (test code = Non HDL Chol) 95 [facility]udaXixxzvwWKMZHM6168-81-40 15:23:00 Test Item Value Reference Range Interpretation Comments HDL (test code = HDL) 28 [facility] BudaTvqxozlYXPTIY8908-67-70 15:23:00 Test Item Value Reference Range Interpretation Comments LDL (Calculated) (test code = LDL 73 (Calculated)) [facility] BudaUnxxswbULKNBF6402-63-32 15:23:00 Test Item Value Reference Range Interpretation Comments Trig (test code = Trig) 134 [facility] DWYOVHXDG4070-38-36 15:23:00 Test Item Value Reference Range Interpretation Comments Hgb A1C (test code = Hgb A1C) 7.1 [facility] HKZYROIPW5391-27-26 15:23:00 Test Item Value Reference Range Interpretation Comments PSA (test code = PSA) 0.6 [facility]2019-02-11 15:23:00 Test Item Value Reference Range Interpretation Comments Hgb (test code = Hgb) 13.4 13.2-17.1 [facility]2019-02-11 15:23:00 Test Item Value Reference Range Interpretation Comments RBC X 10x6 (test code = RBC X 10x6) 4.23 4.20-5.80 [facility]2019-02-11 15:23:00 Test Item Value Reference Range Interpretation Comments Hct (test code = Hct) 40.3 38.5-50.0 [facility]2019-02-11 15:23:00 Test Item Value Reference Range Interpretation Comments WBC X 10x3 (test code = WBC X 10x3) 6.5 3.8-10.8 [facility]2019-02-11 15:23:00 Test Item Value Reference Range Interpretation Comments Chloride Lvl (test code = Chloride Lvl) 100 98-110 [facility]2019-02-11 15:23:00 Test Item Value Reference Range Interpretation Comments Potassium Lvl (test code = Potassium 4.6 3.5-5.3 Lvl) [facility]2019-02-11 15:23:00 Test Item Value Reference Range Interpretation Comments CO2 (test code = CO2) 30 20-32 [facility]2019-02-11 15:23:00 Test Item Value Reference Range Interpretation Comments A/G Ratio (test code = A/G Ratio) 1.8 1.0-2.5 [facility]2019-02-11 15:23:00 Test Item Value Reference Range Interpretation Comments Total Protein (test code = Total 6.5 6.1-8.1 Protein) [facility]2019-02-11 15:23:00 Test Item Value Reference Range Interpretation Comments Calcium Lvl (test code = Calcium Lvl) 9.4 8.6-10.3 [facility]2019-02-11 15:23:00 Test Item Value Reference Range Interpretation Comments Albumin Lvl (test code = Albumin Lvl) 4.2 3.6-5.1 [facility] UWLIXNZJX9034-77-11 15:23:00 Test Item Value Reference Range Interpretation Comments Alk Phos (test code = Alk Phos) 33 40-115 [facility] CPBBKBVCE5394-23-13 15:23:00 Test Item Value Reference Range Interpretation Comments ALANINE AMINOTRANSFERASE (test code = 16 9-46 ALANINE AMINOTRANSFERASE) [facility] BQQWZBWZW9855-85-68 15:23:00 Test Item Value Reference Range Interpretation Comments ASPARTATE TRANSAMINASE (test code = 20 10-35 ASPARTATE TRANSAMINASE) [facility] WEBYNZCNN1337-77-12 15:23:00 Test Item Value Reference Range Interpretation Comments Globulin (test code = Globulin) 2.3 1.9-3.7 [facility] MAJBVNHEX6007-42-86 15:23:00 Test Item Value Reference Range Interpretation Comments Bili Total (test code = Bili Total) 0.5 0.2-1.2 [facility] MSPNACOIT5675-51-66 15:23:00 Test Item Value Reference Range Interpretation Comments U Alb (test code = U Alb) 1.0 [facility] IDBMIRJNH9332-98-06 15:23:00 Test Item Value Reference Range Interpretation Comments U Alb/Crea (test code = U Alb/Crea) 7 [facility] FIHAMWYCQ8696-45-08 15:23:00 Test Item Value Reference Range Interpretation Comments U Creat mg/dL (test code = U Creat 136 20-320 mg/dL) [facility] [id number] 15:23:00 Test Item Value Reference Range Interpretation Comments MCH (test code = MCH) 31.7 pg 27.0-33.0 [facility]annLOC[facility] FVRDLHSBP3562-92-11 15:23:00 Test Item Value Reference Range Interpretation Comments MCHC (test code = MCHC) 33.3 32.0-36.0 [facility] KZUMIXNMC8811-92-32 15:23:00 Test Item Value Reference Range Interpretation Comments MCV (test code = MCV) 95.3 80.0-100.0 [facility] ZLFISJBKL9427-79-24 15:23:00 Test Item Value Reference Range Interpretation Comments RDW (test code = RDW) 12.5 11.0-15.0 [facility] YGQJJCXQU4198-79-42 15:23:00 Test Item Value Reference Range Interpretation Comments MPV (test code = MPV) 11.6 7.5-12.5 [facility] XBADVKFWL2402-55-56 15:23:00 Test Item Value Reference Range Interpretation Comments Platelet (test code = Platelet) 218 140-400 [facility] [id number] 15:23:00 Test Item Value Reference Range Interpretation Comments Creatinine Lvl (test code = Creatinine 1.62 0.70-1.25 Lvl) [facility] YWVKXVFJO6737-78-62 15:23:00 Test Item Value Reference Range Interpretation Comments BUN (test code = BUN) 23 7-25 [facility] FTXBWXRWX1457-43-92 15:23:00 Test Item Value Reference Range Interpretation Comments eGFR NON-AFR. [place] (test code = 43 eGFR NON-AFR. BARBADIAN) [facility] STWYVCWYC1837-98-21 15:23:00 Test Item Value Reference Range Interpretation Comments Glucose Lvl (test code = Glucose Lvl) 140 65-99 [facility] JZWIMGTZQ1159-93-62 15:23:00 Test Item Value Reference Range Interpretation Comments B/C Ratio (test code = B/C Ratio) 14 6-22 [facility] XZZWZSTMG4794-77-00 15:23:00 Test Item Value Reference Range Interpretation Comments eGFR (test code = eGFR 50 ) [facility] [id number] 15:23:00 Test Item Value Reference Range Interpretation Comments Sodium Lvl (test code = Sodium Lvl) 138 135-146 [facility] [id number] 15:23:00 Test Item Value Reference Range Interpretation Comments U Alb (test code = U Alb) 1.0 [facility] [id number] 15:23:00 Test Item Value Reference Range Interpretation Comments U Alb/Crea (test code = U Alb/Crea) 7 [facility] [id number] 15:23:00 Test Item Value Reference Range Interpretation Comments U Creat mg/dL (test code = U Creat 136 20-320 mg/dL) [facility]2018-06-15 14:36:00 Test Item Value Reference Range Interpretation Comments Uric Acid (test code = Uric Acid) 3.1 4.0-8.0 [facility]2018-06-15 14:36:00 Test Item Value Reference Range Interpretation Comments Alk Phos (test code = Alk Phos) 30 40-115 [facility]2018-06-15 14:36:00 Test Item Value Reference Range Interpretation Comments Bili Total (test code = Bili Total) 0.5 0.2-1.2 [facility]2018-06-15 14:36:00 Test Item Value Reference Range Interpretation Comments ALANINE AMINOTRANSFERASE (test code = 15 9-46 ALANINE AMINOTRANSFERASE) [facility]2018-06-15 14:36:00 Test Item Value Reference Range Interpretation Comments ASPARTATE TRANSAMINASE (test code = 20 10-35 ASPARTATE TRANSAMINASE) [facility]2018-06-15 14:36:00 Test Item Value Reference Range Interpretation Comments A/G Ratio (test code = A/G Ratio) 1.9 1.0-2.5 [facility]2018-06-15 14:36:00 Test Item Value Reference Range Interpretation Comments eGFR NON-AFR. [place] (test code = 61 eGFR NON-AFR. BARBADIAN) [facility]2018-06-15 14:36:00 Test Item Value Reference Range Interpretation Comments Creatinine Lvl (test code = Creatinine 1.23 0.70-1.25 Lvl) [facility]2018-06-15 14:36:00 Test Item Value Reference Range Interpretation Comments Albumin Lvl (test code = Albumin Lvl) 4.1 3.6-5.1 [facility]2018-06-15 14:36:00 Test Item Value Reference Range Interpretation Comments Total Protein (test code = Total 6.3 6.1-8.1 Protein) [facility]2018-06-15 14:36:00 Test Item Value Reference Range Interpretation Comments Calcium Lvl (test code = Calcium Lvl) 9.5 8.6-10.3 [facility]2018-06-15 14:36:00 Test Item Value Reference Range Interpretation Comments CO2 (test code = CO2) 27 20-31 [facility]2018-06-15 14:36:00 Test Item Value Reference Range Interpretation Comments Globulin (test code = Globulin) 2.2 1.9-3.7 [facility]2018-06-15 14:36:00 Test Item Value Reference Range Interpretation Comments Sodium Lvl (test code = Sodium Lvl) 139 135-146 [facility]2018-06-15 14:36:00 Test Item Value Reference Range Interpretation Comments B/C Ratio (test code = B/C NOT APPLICABLE 6-22 Ratio) [facility]2018-06-15 14:36:00 Test Item Value Reference Range Interpretation Comments eGFR (test code = eGFR 70 ) [facility]2018-06-15 14:36:00 Test Item Value Reference Range Interpretation Comments Potassium Lvl (test code = Potassium 4.2 3.5-5.3 Lvl) [facility]2018-06-15 14:36:00 Test Item Value Reference Range Interpretation Comments BUN (test code = BUN) 17 7-25 [facility]2018-06-15 14:36:00 Test Item Value Reference Range Interpretation Comments Glucose Lvl (test code = Glucose Lvl) 120 65-99 [facility] [id number] 14:36:00 Test Item Value Reference Range Interpretation Comments Chloride Lvl (test code = Chloride Lvl) 104 98-110 [facility] [id number] 14:36:00 Test Item Value Reference Range Interpretation Comments Hgb A1C (test code = Hgb A1C) 7.6 [facility]2018-06-15 14:36:00 Test Item Value Reference Range Interpretation Comments Uric Acid (test code = Uric Acid) 3.1 4.0-8.0 [facility]2018-06-15 14:36:00 Test Item Value Reference Range Interpretation Comments Alk Phos (test code = Alk Phos) 30 40-115 [facility]2018-06-15 14:36:00 Test Item Value Reference Range Interpretation Comments Bili Total (test code = Bili Total) 0.5 0.2-1.2 [facility]2018-06-15 14:36:00 Test Item Value Reference Range Interpretation Comments ALANINE AMINOTRANSFERASE (test code = 15 9-46 ALANINE AMINOTRANSFERASE) [facility]2018-06-15 14:36:00 Test Item Value Reference Range Interpretation Comments ASPARTATE TRANSAMINASE (test code = 20 10-35 ASPARTATE TRANSAMINASE) [facility]2018-06-15 14:36:00 Test Item Value Reference Range Interpretation Comments A/G Ratio (test code = A/G Ratio) 1.9 1.0-2.5 [facility]2018-06-15 14:36:00 Test Item Value Reference Range Interpretation Comments eGFR NON-AFR. BAR[place] (test code = 61 eGFR NON-AFR. BARBADIAN) [facility]2018-06-15 14:36:00 Test Item Value Reference Range Interpretation Comments Creatinine Lvl (test code = Creatinine 1.23 0.70-1.25 Lvl) [facility]2018-06-15 14:36:00 Test Item Value Reference Range Interpretation Comments Albumin Lvl (test code = Albumin Lvl) 4.1 3.6-5.1 [facility]2018-06-15 14:36:00 Test Item Value Reference Range Interpretation Comments Total Protein (test code = Total 6.3 6.1-8.1 Protein) [facility]2018-06-15 14:36:00 Test Item Value Reference Range Interpretation Comments Calcium Lvl (test code = Calcium Lvl) 9.5 8.6-10.3 [facility] [facility]00 Test Item Value Reference Range Interpretation Comments CO2 (test code = CO2) 27 20-31 [facility]2018-06-15 14:36:00 Test Item Value Reference Range Interpretation Comments Globulin (test code = Globulin) 2.2 1.9-3.7 [facility]2018-06-15 14:36:00 Test Item Value Reference Range Interpretation Comments Sodium Lvl (test code = Sodium Lvl) 139 135-146 [facility]2018-06-15 14:36:00 Test Item Value Reference Range Interpretation Comments B/C Ratio (test code = B/C NOT APPLICABLE 6-22 Ratio) [facility]2018-06-15 14:36:00 Test Item Value Reference Range Interpretation Comments eGFR (test code = eGFR 70 ) [facility]2018-06-15 14:36:00 Test Item Value Reference Range Interpretation Comments Potassium Lvl (test code = Potassium 4.2 3.5-5.3 Lvl) [facility] [id number] 14:36:00 Test Item Value Reference Range Interpretation Comments BUN (test code = BUN) 17 7-25 [facility] [id number] 14:36:00 Test Item Value Reference Range Interpretation Comments Glucose Lvl (test code = Glucose Lvl) 120 65-99 [facility] [id number] 14:36:00 Test Item Value Reference Range Interpretation Comments Chloride Lvl (test code = Chloride Lvl) 104 98-110 [id number] 14:36:00 Test Item Value Reference Range Interpretation Comments Hgb A1C (test code = Hgb A1C) 7.6 [facility]
[2022-12-24 00:16] LABS: Urine Blood 3+ (Negative); Urine Glucose 3+ (Negative); Urine Protein 1+ (Negative); Urine pH 5.5 (5.0-7.0)
[2022-12-24] MEDS ORDERED: NA CHLORIDE 0.9% 1,000 ML ONE (00:33)
[2022-12-24] MEDS ORDERED: MORPHINE 4 MG/ML SYR ONE (00:33)
[2022-12-24] MEDS ORDERED: ONDANSETRON 4 MG/2 ML VIAL ONE ×2 (00:33→01:58)
[2022-12-24 00:43] LABS: Absolute Lymphocytes (CBC) 0.7 K/uL (0.7-4.9); Hematocrit 43.7 % (39.6-49.0); Lymphocytes % 7.7 % (15.3-44.8); MCV 93.2 fL (80-100); MPV 8.7 fL (7.6-11.3); RBC Red Blood Cell Count 4.69 M/uL (4.33-5.43)
[2022-12-24 00:52] LABS: Albumin 3.4 g/dL (3.4-5.0); Bilirubin Total 0.5 mg/dL (0.2-1.0); Potassium 3.4 mmol/L (3.5-5.1); Protein, Total 7.2 g/dL (6.4-8.2)
[2022-12-24 01:04] LABS: Urine Bacteria None Seen /HPF (<20); Urine Mucus Slight /HPF (None Seen); Urine RBC >50 /HPF (None Seen)
[2022-12-24] MEDS ORDERED: HYDROMORPHONE HCL 1 MG/ML INJ ONE (01:58)
[2022-12-24] MEDS ORDERED: MAGNESIUM SULFATE 1 gm IVPB 1 GM/100 ML BAG IV ONE (02:05)
--- NOTE | 2022-12-24 03:39 | EDPHYS ---
Physician Documentation [facility] Name: Johnathon Chapin Age: 72 yrs Sex: Male : 1950 Arrival Date: 12/23/2022 Time: 23:10 Bed 5 Private MD: ED Physician Jonathon Jolly HPI: 12/24 00:15 This 72 yrs old Male presents to ER via Ambulatory with complaints of Abdominal Pain, cp Testicular Pain, Low Back Pain, Nausea. 00:15 The patient presents with abdominal pain suprpubic. Onset: The symptoms/episode cp began/occurred suddenly, last night. The symptoms radiate to left back, the left flank. Associated signs and symptoms: Pertinent positives: nausea and vomiting, testicular pain. Historical: - Allergies: 12/23 23:34 Niaspan; as6 - PMHx: 23:34 Diabetes - IDDM; Gout; Hyperlipidemia; Hypertension; as6 - Immunization history:: Client reports having NOT received the Covid vaccine. - Social history:: Smoking status: Patient denies any tobacco usage or history of. ROS: 12/24 00:20 Constitutional: Positive for poor PO intake, Negative for body aches, chills, fever. cp 00:20 Eyes: Negative for injury, pain, redness, and discharge. cp 00:20 ENT: Negative for drainage from ear(s), ear pain, sore throat, difficulty swallowing, difficulty handling secretions. 00:20 Cardiovascular: Negative for chest pain, palpitations. 00:20 Respiratory: Negative for cough, shortness of breath, wheezing. 00:20 Abdomen/GI: Positive for abdominal pain, nausea and vomiting. 00:20 Back: Positive for flank pain, on the left. 00:20 : Positive for testicular pain 00:20 Neuro: Negative for altered mental status, dizziness, headache, weakness. 00:20 All other systems are negative. Exam: 00:20 Constitutional: The patient appears in no acute distress, alert, awake, cp non-diaphoretic, non-toxic, well developed, well nourished, in obvious pain, uncomfortable. 00:20 Head/Face: Normocephalic, atraumatic. cp 00:20 Eyes: Periorbital structures: appear normal, Conjunctiva: normal, no exudate, no injection, Sclera: no appreciated abnormality, Lids and lashes: appear normal, bilaterally. 00:20 ENT: External ear(s): are unremarkable, Nose: is normal, Mouth: Lips: moist, Oral mucosa: moist, Posterior pharynx: is normal, airway is patent, no erythema, no exudate. 00:20 Neck: ROM/movement: is normal, is supple, without pain, no range of motions limitations. 00:20 Chest/axilla: Inspection: normal, Palpation: is normal, no crepitus, no tenderness. 00:20 Cardiovascular: Rate: normal, Rhythm: regular, Edema: is not appreciated, JVD: is not appreciated. 00:20 Respiratory: the patient does not display signs of respiratory distress, Respirations: normal, no use of accessory muscles, no retractions, labored breathing, is not present, Breath sounds: are clear throughout, no decreased breath sounds, no stridor, no wheezing. 00:20 Abdomen/GI: Inspection: abdomen appears normal, Bowel sounds: active, all quadrants, Palpation: soft, in all quadrants, moderate abdominal tenderness, in the suprapubic area, anterior aspect of left lateral abdomen, posterior aspect of left lateral abdomen and left lower quadrant, rebound tenderness, is not appreciated, voluntary guarding, is elicited in the anterior aspect of left lateral abdomen, posterior aspect of left lateral abdomen and left lower quadrant. 00:20 Skin: cellulitis, is not appreciated, no rash present. 00:20 Neuro: Orientation: is normal, Mentation: is normal, Motor: moves all fours, strength is normal, Sensation: is normal, Gait: is steady. Vital Signs: 12/23 23:30 BP 177 / 105; Pulse 95; Resp 18 S; Temp 97.7(TE); Pulse Ox 97% on R/A; Weight 104.33 kg as6 (R); Height 6 ft. 2 in. (R); Pain 8/10; 12/24 02:17 BP 123 / 65; Pulse 81; Resp 17 S; Pulse Ox 98% on R/A; lg3 12/23 23:30 Body Mass Index 29.53 (104.33 kg, 187.96 cm) as6 12/23 23:30 Pain Scale: Adult as6 MDM: 12/23 23:40 Patient medically screened. cp 12/24 01:00 Differential diagnosis: bowel obstruction, diverticulitis, non-specific abd pain, cp pancreatitis, Pyelonephritis, Ureterolithiasis, urinary tract infection. 12/24 00:11 Order name: CBC with Diff; Complete Time: 01:05 cp 12/24 01:06 Interpretation: Normal except: DIMITRI% 85.8; LYM% 7.7. cp 12/24 00:11 Order name: CMP; Complete Time: 01:05 cp 12/24 01:06 Interpretation: Normal except: K 3.4; GLUC 279; BUN 29; CRE 2.24; GFR 31; GLOB 3.8; A/G cp 0.9. 12/24 00:11 Order name: Lipase; Complete Time: 01:05 cp 12/24 01:49 Interpretation: Abnormal: LIP 92. 12/24 00:11 Order name: Urine Microscopic Only; Complete Time: 01:05 cp 12/24 00:11 Order name: IV Saline Lock; Complete Time: 00:34 cp 12/24 00:11 Order name: Labs collected and sent; Complete Time: 00:34 cp 12/24 00:11 Order name: Urine Dipstick-Ancillary (obtain specimen); Complete Time: 00:17 cp 12/24 00:11 Order name: CT Stone Protocol 12/24 00:16 Order name: Urine Dipstick-Ancillary; Complete Time: 01:05 EDMS 12/24 03:30 Order name: COVID-19/FLU A+B ah1 Administered Medications: 00:34 Drug: Ondansetron IVP 4 mg Route: IVP; Site: right antecubital; lg3 01:13 Follow up: Response: No adverse reaction; Marked relief of symptoms; Nausea is decreasedlg3 00:34 Drug: morphine IVP or IV 4 mg Route: IVP; Infused Over: 4 mins; Site: right antecubital;lg3 01:12 Follow up: Response: No adverse reaction; Marked relief of symptoms; Pain is decreased lg3 00:36 Drug: NS 0.9% IV 1000 ml Route: IV; Rate: 100 ml/hr; Site: right antecubital; lg3 01:58 Drug: HYDROmorphone IVP 1 mg Route: IVP; Site: right antecubital; lg3 01:58 Drug: Ondansetron IVP 4 mg Route: IVP; Site: right antecubital; lg3 02:17 Drug: Magnesium Sulfate IVPB 1 grams Route: IVPB; Infused Over: 30 mins; Site: right lg3 antecubital; Disposition Summary: 12/24/22 03:39 Transfer Ordered Accepting Physician: Doctor arlene Transfer Location: [facility] cp Reason: Higher level of care cp Condition: Stable cp Problem: new cp Symptoms: have improved cp Diagnosis - Hydronephrosis with renal and ureteral calculous obstruction - left, severe cp - Unspecified kidney failure - acute on chronic cp Forms: - Medication Reconciliation Form cp - SBAR form cp Signatures: Dispatcher [employer] EDMS Brandon Tafoya PA PA cp Gibson, Lacie RN RN lg3 Brian Castillo RN RN as6
--- NOTE | 2022-12-24 03:39 | ER ---
Nurse's Notes [facility] Name: Johnathon Chapin Age: 72 yrs Sex: Male : 1950 Arrival Date: 12/23/2022 Time: 23:10 Bed 5 Private MD: Diagnosis: Hydronephrosis with renal and ureteral calculous obstruction-left, severe;Unspecified kidney failure-acute on chronic Presentation: 12/23 23:30 Chief complaint: Patient states: "I think I'm having kidney stone. I've had them before as6 and it feels the same". Coronavirus screen: At this time, the client does not indicate any symptoms associated with coronavirus-19. Ebola Screen: No symptoms or risks identified at this time. Initial Sepsis Screen: Does the patient meet any 2 criteria? No. Patient's initial sepsis screen is negative. Does the patient have a suspected source of infection? No. Patient's initial sepsis screen is negative. Risk Assessment: Do you want to hurt yourself or someone else? Patient reports no desire to harm self or others. Onset of symptoms was December 23, 2022. 23:30 Method Of Arrival: Ambulatory as6 23:30 Acuity: JENNIFER 3 as6 Historical: - Allergies: 23:34 Niaspan; as6 - PMHx: 23:34 Diabetes - IDDM; Gout; Hyperlipidemia; Hypertension; as6 - Immunization history:: Client reports having NOT received the Covid vaccine. - Social history:: Smoking status: Patient denies any tobacco usage or history of. Screenin/15 00:31 [facility] ED Fall Risk Assessment (Adult) History of falling in the last 3 months, lg3 including since admission No falls in past 3 months (0 pts). Abuse screen: Denies threats or abuse. Denies injuries from another. Nutritional screening: No deficits noted. Tuberculosis screening: No symptoms or risk factors identified. Assessment: 00:31 General: Appears in no apparent distress. uncomfortable, Behavior is calm, cooperative. lg3 Pain: Complains of pain in pelvis Pain radiates to low back area. Neuro: No deficits noted. Garrison Agitation-Sedation Scale (RASS): 0 - Alert and Calm Level of Consciousness is awake, alert, obeys commands, Oriented to person, place, time, situation. Cardiovascular: No deficits noted. Denies chest pain, shortness of breath, Capillary refill < 3 seconds Clubbing of nail beds is absent JVD is absent Patient's skin is warm and dry. Respiratory: No deficits noted. Airway is patent Trachea midline Respiratory effort is even, unlabored, Respiratory pattern is regular, symmetrical. GI: Abdomen is round non-distended, Bowel sounds present X 4 quads. Abd is soft and non tender X 4 quads. : No deficits noted. Urine is clear. EENT: No deficits noted. No signs and/or symptoms were reported regarding the EENT system. Derm: No deficits noted. No signs and/or symptoms reported regarding the dermatologic system. Skin is intact, is healthy with good turgor, Skin is dry, Skin is normal, Skin temperature is warm. Musculoskeletal: No deficits noted. Circulation, motion, and sensation intact. Range of motion: intact in all extremities. 01:12 Reassessment: Patient appears in no apparent distress at this time. No changes from lg3 previously documented assessment. Patient and/or family updated on plan of care and expected duration. Pain level reassessed. Patient is alert, oriented x 3, equal unlabored respirations, skin warm/dry/pink. Vital Signs: 12/23 23:30 BP 177 / 105; Pulse 95; Resp 18 S; Temp 97.7(TE); Pulse Ox 97% on R/A; Weight 104.33 kg as6 (R); Height 6 ft. 2 in. (R); Pain 8/10; 12/24 02:17 BP 123 / 65; Pulse 81; Resp 17 S; Pulse Ox 98% on R/A; lg3 12/23 23:30 Body Mass Index 29.53 (104.33 kg, 187.96 cm) as6 12/23 23:30 Pain Scale: Adult as6 ED Course: 12/23 23:10 Patient arrived in ED. jj6 23:28 Brandon Tafoya PA is PHCP. cp 23:28 Jonathon Jolly MD is Attending Physician. cp 23:34 Triage completed. as6 23:35 Arm band placed on. as6 12/24 00:17 Urine Microscopic Only Sent. lg3 00:31 Patient has correct armband on for positive identification. Placed in gown. Bed in low lg3 position. Call light in reach. Side rails up X 1. Client placed on continuous cardiac and pulse oximetry monitoring. NIBP monitoring applied. Door closed. Noise minimized. Warm blanket given. Family accompanied patient. 00:31 Inserted saline lock: 20 gauge in right antecubital area, using aseptic technique. lg3 Blood collected. 00:46 CT Stone Protocol In Process Unspecified. EDMS 01:12 Mehreen Ortiz, RN is Primary Nurse. lg3 Administered Medications: 00:34 Drug: Ondansetron IVP 4 mg Route: IVP; Site: right antecubital; lg3 01:13 Follow up: Response: No adverse reaction; Marked relief of symptoms; Nausea is decreasedlg3 00:34 Drug: morphine IVP or IV 4 mg Route: IVP; Infused Over: 4 mins; Site: right antecubital;lg3 01:12 Follow up: Response: No adverse reaction; Marked relief of symptoms; Pain is decreased lg3 00:36 Drug: NS 0.9% IV 1000 ml Route: IV; Rate: 100 ml/hr; Site: right antecubital; lg3 01:58 Drug: HYDROmorphone IVP 1 mg Route: IVP; Site: right antecubital; lg3 01:58 Drug: Ondansetron IVP 4 mg Route: IVP; Site: right antecubital; lg3 02:17 Drug: Magnesium Sulfate IVPB 1 grams Route: IVPB; Infused Over: 30 mins; Site: right lg3 antecubital; Outcome: 03:39 ER care complete, transfer ordered by MD. jcaobs Signatures: Dispatcher [employer] EDWA Brandon Tafoya PA PA cp Gibson, Lacie, MOOSE VIRK lg3 Candy Weaver jj6 Brian Castillo RN RN as6
[2022-12-24 05:27] LABS: SARS-COV-2 RT PCR POSITIVE (NEGATIVE)
--- NOTE | 2022-12-24 11:13 | RAD REPORT ---
EXAM DESCRIPTION: CT - Stone Protocol - 12/24/2022 6:54 am CLINICAL HISTORY: Flank pain. Assess for obstructive uropathy. TECHNIQUE: CT scan of the abdomen and pelvis was performed without intravenous contrast. Stone maria dolores col was utilized. 2.5 mm axial images were obtained along with coronal and sagittal reformatted image s. COMPARISON: 11/03/2020. DOSE OPTIMIZATION: This facility uses dose optimization techniques as appropriate to perform exams, including at least one of the following techniques: 1. Automated exposure control. 2. Adjustment of the mA and/or kV according to patient size (this includes techniques or standardized protocols for targeted exams where dose is matched to the indication/reason for exam, i.e. extremiti es or head). 3. Use of iterative reconstructive technique. FINDINGS: Lung Bases: Normal. Liver: Normal. Spleen: Normal. Pancreas: Normal. Gallbladder: Normal. Adrenal Glands: Normal. Right Kidney: Normal. Left Kidney: There is moderately severe left hydroureteronephrosis secondary to an obstructing stone in the left ureter at the L3-L4 interspace level. The stone measures 0.5 x 0.4 cm There are 2 small residual nonobstructing medullary stones in the lower pole left kidney. There is a small cortical cyst extending superiorly in the left kidney measuring 1.2 cm, stable. Urinary Bladder: Normal. Retroperitoneal Structures: There is moderately severe atherosclerotic disease about the abdominal ao rta and its branch vessels. Bowel Survey: There is a small hiatal hernia. The stomach is unremarkable. There are multiple mildly distended small bowel loops which contain gas and stool like material sugge sting bowel stasis. The appendix is unremarkable. There is increased stool identified throughout the ascending, transverse, and descending colon. There is moderately severe diverticulosis involving the descending and sigmoid colon. Prostate Gland: Normal size. Peritoneal Cavity: Normal. Mesenteric Structures: Normal. Abdominal Wall: No hernia. Bony Structures: No suspicious lesions. There is severe degenerative disc disease at L2-L3 and L3-L4. There is severe facet arthropathy at L4-L5 and L5-S1. IMPRESSION: 1. Moderately severe diffuse hydroureteronephrosis secondary to an obstructing stone in the left mid ureter. 2. Left nephrolithiasis. 3. Evidence of bowel stasis with increased stool throughout the ascending, transverse, and descending colon and mildly distended small bowel loops. 4. Moderately severe diverticulosis of the descending and sigmoid colon. Electronically signed by: Rufus Patel MD 12/24/2022 1:05 AM CDT Due to temporary technical issues with the PACS/Fluency reporting system, reports are being signed by the in house radiologists without review as a courtesy to insure prompt reporting. The interpreting radiologist is fully responsible for the content of the report.
[2022-12-24 12:14] VITALS: TEMP 97.7
[2022-12-24 12:19] VITALS: BP 129/81; O2SAT 99
== END 2022-12-24 09:02 | disposition short-term general hospital (02) ==
LOC: ER 23:06
DX: N13.2 Hydronephrosis with renal and ureteral calculous obstruction (principal); U07.1 COVID-19; N17.9 Acute kidney failure, unspecified; I10 Essential (primary) hypertension; E11.9 Type 2 diabetes mellitus without complications
CPT/HCPCS: 85025; 36415; 83690; 80053; 0240U; 76377; 74176; J3475; J1170; J2405 ×2; J7030; 81003; 81015